=== PATIENT | female | born 1930 | race Caucasian/White ===

== ENCOUNTER 2018-05-11 11:41 | Inpatient (IN) | payer MEDICARE, MEDICAID ==
[~2018-05-11] VITALS: Ht 149.9 cm; Wt 53.0 kg
[~2018-05-11 11:41] MED LIST: AMLO10TAB OR; ASPI1TAB PO; CALC0.5C OR; CELL250C PO; COLA100C5 PO; DIPH2.5L PO; ECOT81TA5 PO; FLON1SPR; FLUTISP; GLYC3350 PO; HYDR25TA7 OR; KEFL500C17 PO; LABE100T2 OR; LACT3000 PO; LACTAID PO; LIDO5DIS EX; LIPI10TA OR; LISI10TA4 PO; LOMO2.5T PO; MEGE20TA3 PO; MEPRON PO; MIDO2.5T PO; MIRA3350 PO; MIRC30SO IVP; ONDA4TAB6 PO; OXYC1TAB23 PO; PAIN325T OR; PERC5TAB12 PO; PERC5TAB8 OR; POTA10CA2 OR; PRED10TA2 OR; PRED20TA OR; PRED20TA PO; PRED50TA OR; PROM50TA OR; PROM50TA PO; RANI150T PO; RANI1TAB6 PO; RENV2TAB PO; SEVE40CA PO; STOO100C PO; VICO5TAB OR; VITA-112 PO; VITA-115 PO; ZANT150T OR; ZOFR4TAB14 PO; [UNRECOGNIZED DRUG - CODE] IV; cytoxan PO
[2018-05-11] MEDS ORDERED: VITA-122 PO (12:09)
[2018-05-11] MEDS ORDERED: ASPI81TA24 PO (12:09)
[2018-05-11] MEDS ORDERED: MEGE20TA3 PO (12:09)
[2018-05-11] MEDS ORDERED: PRED10TA2 PO (12:09)
[2018-05-11 13:36] LABS: HEMATOCRIT 37.1 % (36.0-47.0); HEMOGLOBIN 11.2 g/dl (12.0-15.5); MEAN CORPUSCULAR HEMOGLOBIN 30.8 pg (27.0-33.0); MEAN CORPUSCULAR HGB CONC 30.2 g/dl (32.0-36.5); MEAN CORPUSCULAR VOLUME 101.9 fl (80.0-96.0); PLATELET COUNT, AUTOMATED 172 10^3/uL (150-450); RED BLOOD COUNT 3.64 10^6/uL (4.00-5.40); WHITE BLOOD COUNT 8.8 10^3/uL (4.0-10.0)
[2018-05-11 14:07] LABS: BILIRUBIN,TOTAL 0.5 MG/DL (0.2-1.0); CALCIUM LEVEL 8.3 MG/DL (8.8-10.2); CREATININE FOR GFR 4.43 MG/DL (0.55-1.30); MAGNESIUM LEVEL 2.3 MG/DL (1.8-2.4); PHOSPHORUS LEVEL 5.9 MG/DL (2.5-4.9); POTASSIUM SERUM 4.5 MEQ/L (3.5-5.1); TOTAL PROTEIN 6.5 GM/DL (6.4-8.2)
[2018-05-11] MEDS ORDERED: PERCOCET 5MG/325MG TAB PO ONE (14:30)
--- NOTE | 2018-05-11 15:55 | REP ---
BILATERAL LOWER EXTREMITY DOPPLER VENOUS ULTRASOUND: 05/11/2018. Comparison: 09/10/2017. Clinical history: Bilateral lower extremity pain. Evaluate for DVT. Patient notes there was some the patient to this examination because of patient motion. RIGHT LOWER EXTREMITY: Technique: The deep venous system of the right lower extremity is evaluated with pickard scale imaging, compression ultrasound, color imaging and duplex Doppler interrogation. Examination from the groin through the popliteal fossa into the proximal calf. Findings: There is full compressibility from the common femoral vein in the inguinal region through the popliteal vein. Color imaging confirms patency throughout the course of the deep venous system. There is respiratory variation and augmented flow at all levels. Impression: 1. No Doppler venous ultrasound evidence of DVT in the right lower extremity. LEFT LOWER EXTREMITY: Technique: The deep venous system of the right lower extremity is evaluated with pickard scale imaging, compression ultrasound, color imaging and duplex Doppler interrogation. Examination from the groin through the popliteal fossa into the proximal calf. Findings: The common femoral vein just before the bifurcation with the profunda shows a nonocclusive clot peripherally. There is respiratory variation and augmented flow evident. The remainder of the femoral vein and popliteal vein are well seen and show color flow, full compression, duplex Doppler interrogation with respiratory variation and augmented flow. Impression: 1. The left lower extremity at the common femoral vein shows nonocclusive thrombus just before the takeoff of the profunda femoris. There is color flow through this area with respiratory variation and augmented flow. This may be acute or old thrombus, it is peripheral. 2. Remainder of the common femoral vein through the thigh and the popliteal vein are without evidence for DVT. Electronically Signed by Robb Parsons MD 05/11/2018 03:45 P
[2018-05-11 16:19] LABS: INR 0.92; PROTHROMBIN TIME 12.4 SECONDS (12.1-14.4)
[2018-05-11 16:20] LABS: PARTIAL THROMBOPLASTIN TIME 28.6 SECONDS (25.4-37.6)
[2018-05-11] MEDS ORDERED: MIDO2.5T PO (16:37)
[2018-05-11] MEDS ORDERED: MYCO250C PO (16:37)
[2018-05-11] MEDS ORDERED: SEVE800T3 PO (16:41)
[2018-05-11] MEDS ORDERED: DIPH2.5T14 PO (16:45)
[2018-05-11] MEDS ORDERED: FLUTICASONE PROP 0.05% NASAL SPRAY 16 GM (FLONASE) PRN (19:30)
[2018-05-11] MEDS ORDERED: APIXABAN 5 MG TAB (ELIQUIS) PO ONE (20:00)
--- NOTE | 2018-05-11 20:32 | HPE ---
DATE OF ADMISSION: 05/11/2018 CHIEF COMPLAINT: Bilateral leg pain. HISTORY OF PRESENT ILLNESS: This is an 88-year-old female with a past medical history of end-stage renal disease, on dialysis since 2010 via right arteriovenous (AV) fistula, history of spinal stenosis, and low blood pressure who presents after dialysis with significant leg pain. The patient normally receives Tuesday, Tuesday, Tuesday dialysis and has been getting extra hemodialysis on Saturdays for ankle swelling, and reports after her most recent dialysis, she started having bilateral hip pain radiating down to her knees that was severe to 9 out of 10 pain, which is particularly worse with movement. Right now she is not having any pain at rest; however, cannot ambulate secondary to the significant pain. She does not have any recent history of immobility or prior history of deep vein thrombosis (DVT). REVIEW OF SYSTEMS: Negative in 14 out of 14 systems except as noted above. PAST MEDICAL HISTORY: As noted above in history of the present illness. PAST SURGICAL HISTORY: The patient has had a history of hip replacement, a hysterectomy, left leg abscess surgery, and right AV fistula. MEDICATIONS: The patient's home medications are: - Percocet half a tablet by mouth four times a day as needed for pain - lactase 3000 units one tablet by mouth three times a day as needed lactose intolerance - Megace 10 mg by mouth daily - aspirin 81 mg daily - vitamin D 1000 units daily - Flonase 50 mcg one spray daily as needed for congestion - midodrine 2.5 mg by mouth three times a day - Cellcept 250 mg by mouth twice a day - Zofran 4 mg by mouth every 8 hours as needed for nausea - prednisone 10 mg daily - sevelamer 800 mg by mouth three times a day ALLERGIES: The patient is allergic to CEFUROXIME, CEPHALOSPORINS, CODEINE, FENOFIBRATE, MORPHINE, MOXIFLOXACIN, SULFA DRUGS. FAMILY HISTORY: The patient's father had heart disease. SOCIAL HISTORY: The patient currently lives alone in senior housing and was able to walk prior to returning home. The patient does have a local niece who helps her sometimes, but she is currently in [place]. She has never been and has no children. No smoking or alcohol use. PHYSICAL EXAMINATION: On exam currently, the patient's most recent vital signs show patient is afebrile to 98.7, blood pressure 175/72, heart rate currently at 100, saturating 97% on room air. In general, she is a pleasant elderly female in no acute distress. HEENT Exam: Oropharynx clear. Neck: Supple. Cardiovascular: Regular rate and rhythm. No murmurs, rubs, or gallops. Lungs: Clear to auscultation bilaterally. Abdomen: Soft, nontender, nondistended. Positive bowel sounds. Extremities: The patient has bilateral ankle edema. She has a right AV fistula. Neurologic: The patient is alert and oriented times three, follows simple commands. No focal neurologic deficits. Musculoskeletal: Moves all extremities equally. Skin: Intact. Psych: Mood stable. Labs reveal CBC with a white count of 8.8, hemoglobin of 11, platelets of 172. Chemistry revealed a creatinine of 4.43, potassium of 4.5. Imaging reveals Doppler ultrasound that shows common femoral vein just before the bifurcation with the profunda shows a nonocclusive clot peripherally. There is respiratory variation and augmented flow evident. The remainder of the femoral vein and popliteal vein are well seen and show color flow. ASSESSMENT AND PLAN: This is an 88-year-old female with past medical history of end-stage renal disease, on dialysis, history of spinal stenosis, low blood pressure, who presents with bilateral leg pain, found to have a nonocclusive left leg deep vein thrombosis (DVT). PROBLEMS: 1. Left leg DVT. I am starting the patient on Eliquis, which per up to date does not need any dose adjustments per woolen tester label, but this population was not used in studies. For now, I have started this medication and will defer to the primary team with [facility] that will take over tomorrow to make final decision about patient's long-term anticoagulation and whether they prefer the patient to be on Coumadin instead. This can be finalized tomorrow in discussion with the primary team tomorrow. I have also put in for a physical therapy (PT) consult as pain control and impaired gait is a barrier to discharge at this time. I have started her on oxycodone 1-2 tablets as needed for pain, as well as physical therapy to assist with discharge planning. I have also placed a social work consult. 2. Low blood pressure. The patient reportedly has a history of low blood pressure, but at this time her pressures are in the 170s. I am continuing her home midodrine, but perhaps this dose can be reduced if the patient remains persistently hypertensive. 3. End-stage renal disease. The patient is on hemodialysis Tuesday, Tuesday, Tuesday and primary team to arrange for patient to have dialysis tomorrow per her usual schedule. 4. The patient is on CellCept and prednisone, but it is unclear why she is on these medications and I will continue them for now. 5. DVT prophylaxis. The patient is on Eliquis. The patient will be transferred to the family medicine service tomorrow as patient's primary care doctor is Dr. Dick. LISA
[2018-05-11 21:14] VITALS: BP 149/66
[2018-05-11] MEDS: PERCOCET 5MG/325MG TAB PO PRN (22:10)
[2018-05-12] VITALS: BP 159/70
[2018-05-12] MEDS: MYCOPHENOLATE MOFETIL 250 MG CAP (J7517) PO SCH ×3 (00:06→20:14)
[2018-05-12] MEDS: ONDANSETRON 4 MG ORAL DISINTEGRATING TAB (Q0162 PER 1MG) PO PRN ×3 (00:07→22:57)
[2018-05-12 04:00] VITALS: BP_SYST 137; BP_SYST 149; BP_DIAS 65; BP_DIAS 66
[2018-05-12 07:26] LABS: MEAN CORPUSCULAR HEMOGLOBIN 30.3 pg (27.0-33.0); MEAN CORPUSCULAR HGB CONC 30.3 g/dl (32.0-36.5); PLATELET COUNT, AUTOMATED 194 10^3/uL (150-450); WHITE BLOOD COUNT 6.8 10^3/uL (4.0-10.0)
[2018-05-12 07:42] LABS: CREATININE FOR GFR 5.62 MG/DL (0.55-1.30); GLOMERULAR FILTRATION RATE 7.6 (>32); POTASSIUM SERUM 4.3 MEQ/L (3.5-5.1)
[2018-05-12] MEDS ORDERED: MIDODRINE 2.5 MG TAB PO SCH (08:00)
[2018-05-12] MEDS: MIDODRINE 2.5 MG TAB PO SCH ×3 (08:34→16:00)
[2018-05-12] MEDS: VITAMIN D 1,000 INTERNATIONAL UNITS TABLET PO SCH (08:34)
[2018-05-12] MEDS: predniSONE 10 MG TAB PO SCH (08:34)
[2018-05-12] MEDS: (RENVELA) SEVELAMER **CARBONate** 800 MG TAB PO SCH ×3 (08:34→19:47)
[2018-05-12] MEDS: ASPIRIN 81 MG ENTERIC TAB PO SCH (08:35)
[2018-05-12] MEDS ORDERED: APIXABAN 5 MG TAB (ELIQUIS) PO SCH (09:00)
[2018-05-12 13:39] VITALS: BP 164/72
--- NOTE | 2018-05-12 15:25 | CR ---
DATE OF CONSULTATION: 05/12/2018 CONSULTATION REPORT FOR: Dr. Currie REASON FOR CONSULTATION: To assist in the management of end-stage renal disease. HISTORY OF PRESENT ILLNESS: Mrs. Perez is an 88-year-old female with multiple chronic medical problems including history of end-stage renal disease, congestive heart failure, chronic hypotension requiring midodrine, history of anemia of chronic kidney disease. She is admitted to [facility] due to lower extremity pain and swelling. She is noticed to have deep vein thrombosis (DVT) in her right lower extremity and was admitted last evening. A nephrology consultation is requested and the patient is seen this morning. PAST MEDICAL AND SURGICAL HISTORY: Significant for: 1. History of end-stage renal disease. 2. History of peripheral vascular disease. 3. History of spinal stenosis. 4. History of chronic hypotension. 5. Anemia of chronic kidney disease. 6. History of rheumatoid arthritis. PAST SURGICAL HISTORY: Significant for a hysterectomy, left leg abscess drainage and right arm arteriovenous (AV) fistula creation in addition to Perma-Cath. PERSONAL AND SOCIAL HISTORY: The patient has no history of smoking, alcohol or drug use. FAMILY HISTORY: Negative for end-stage renal disease. MEDICATIONS: Her home medications include: - Percocet as needed for pain - lactase 3000 units one tablet three times a day for lactose intolerance - Megace 10 mg daily - aspirin 81 mg daily - vitamin D 1000 units daily - midodrine 2.5 mg three times a day - CellCept 250 mg twice a day - Zofran 4 mg every eight hours as needed nausea - prednisone 10 mg daily - Renvela 800 mg three times a day ALLERGIES: She has allergy to CEPHALOSPORINS, CODEINE, FENOFIBBRATE, MORPHINE, and SULFA DRUGS. REVIEW OF SYSTEMS: The patient denies any fever or chills. She reports pain in her lower extremities since Tuesday and could not stand up. She also has chronic swelling and has required extra hemodialysis for her chronic volume overload. She denies any dyspnea or chest pain at present on review of cardiovascular system. Her respiratory system is negative for cough or hemoptysis. Gastrointestinal (GI) system is negative for nausea, vomiting or diarrhea. Genitourinary () system is negative for dysuria or hematuria. Musculoskeletal system is significant for bilateral lower extremity pain and swelling. She has known history of spinal stenosis. Skin is negative for rash or ulcers. Neurological system is significant for neuropathy and spinal stenosis. Psychosocial system is negative for depression or anxiety. Hematological system is significant for anemia of chronic kidney disease. PHYSICAL EXAMINATION: The patient is awake and alert and without any acute distress. Temperature 98.3 degrees Fahrenheit, heart rate 74 per minute and respiratory rate 18 per minute. Blood pressure 137/65 mmHg and oxygen saturation 96% on room air. Head is atraumatic. There is no oral thrush or ulcers. She is edentulous. Neck is supple and jugular venous distention (JVD) is not abnormally elevated. There is no thyroid enlargement. Heart sounds are regular and there is a systolic murmur grade 2/6. Lungs have slightly diminished breath sounds at bases but no wheezing or rales audible. Abdomen is soft and nontender. Bowel sounds are normal. Extremities have no cyanosis or clubbing. She has a right arm arteriovenous (AV) fistula. Her right lower extremity is swollen about 2+ and left lower extremity 1+. She has some ecchymotic areas on her lower extremities. Neurologically, she is awake, alert and oriented times three. LABORATORY DATA: Today's laboratories show WBC count 6.8, hemoglobin 10.0, and hematocrit 33.0. Platelets 194. INR is 0.92 and initial PTT was 28.6. Sodium is 134, potassium 4.3, CO2 25, BUN 61 and creatinine 5.62. Calcium level is 8.0. PROBLEMS: 1. End-stage renal disease. The patient was last dialyzed on Tuesday and she is due for dialysis today. We will plan on dialyzing her later this afternoon. 2. Chronic leg edema. Unfortunately, we cannot remove fluid more aggressively due to chronic hypotension. She has been getting extra ultrafiltration sessions in between her dialysis treatments. We will plan to dialyze her today and see how much fluid we can remove. We will reevaluate her tomorrow for an extra ultrafiltration if needed. 3. Chronic hypotension. She has been on midodrine 2.5 mg three times a day which should be continued. 4. Deep vein thrombosis (DVT) and anticoagulation. She has been started on Eliquis 10 mg twice a day. She has end-stage renal disease and I would suggest to adjust the dose of Eliquis for her end-stage renal disease (ESRD). 5. Chronic hyperparathyroidism. She has been on Renvela which should be continued. Her phosphorus level was 5.9 yesterday. Thank you for involving me in the care of Mrs. Perez. I will follow her along with you.
[2018-05-12 20:00] VITALS: BP 107/54
[2018-05-12] MEDS: APIXABAN 2.5 MG TAB (ELIQUIS) PO SCH (20:14)
[2018-05-12] MEDS: PERCOCET 5MG/325MG TAB PO PRN (20:14)
[2018-05-13] VITALS: BP 128/60
--- NOTE | 2018-05-13 02:43 | IPNPDOC ---
Subjective Date Seen The patient was seen on 05/13/18. Subjective Chief Complaint/HPI Seen briefly before dialysis. She notes that her leg only hurts when she tries to stand on it, painless at rest. She can't stand on it, because it hurts. Otherwise feeling fine. Constitutional: Denies: Chills, Fever Pulmonary: Denies: Dyspnea Cardiovascular: Denies: Chest Pain Gastrointestinal: Denies: Nausea, Vomiting, Diarrhea, Constipation Musculoskeletal: Reports: Leg Pain Objective Physical Examination General Exam: Positive: Alert ENT Exam: Positive: Mucous membr. moist/pink Chest Exam: Positive: Clear to auscultation, Normal air movement Heart Exam: Positive: Rate Normal Abdomen Exam: Positive: Normal bowel sounds Extremity Exam: Positive: Tenderness, Swelling Assessment /Plan Problems (1) Non-occlusive thrombus Problem Text: Anticoagulated. Patient can be discharged home when she can ambulate. PT contacted. (2) End stage renal disease on dialysis Status: Chronic Problem Text: Nephrology consulted Plan/VTE VTE Prophylaxis Ordered?: Yes VS, I&O, 24H, Fishbone Vital Signs/I&O Vital Signs Date Time Temp Pulse Resp B/P (MAP) Pulse Ox O2 Delivery O2 Flow Rate FiO2 05/13/18 00:00 99.1 77 18 128/60 (82) 94 05/11/18 11:54 Room Air I&O- Last 24 Hours up to 6 AM 05/13/18 06:00 Intake Total 540 ml Output Total 2100 ml Balance -1560 ml Laboratory Data 24H LABS Laboratory Tests 2 05/12/18 07:06: Nucleated Red Blood Cells % (auto) 0.0, Anion Gap 15, Glomerular Filtration Rate 7.6L, Blood Urea Nitrogen 61H, Creatinine 5.62H, Sodium Level 134L, Potassium Level 4.3, Chloride Level 94L, Carbon Dioxide Level 25, Calcium Level 8.0L CBC/BMP Laboratory Tests 05/12/18 07:06 Red Blood Count 3.30 L, Mean Corpuscular Volume 100.0 H, Mean Corpuscular Hemoglobin 30.3, Mean Corpuscular Hemoglobin Concent 30.3 L, Red Cell Distribution Width 15.7 H, Calcium Level 8.0 L IBRAHIMA HERNANDEZ DO May 13, 2018 02:43
[2018-05-13 04:08] VITALS: BP 180/76
[2018-05-13 04:50] VITALS: BP 138/70
[2018-05-13] MEDS: PERCOCET 5MG/325MG TAB PO PRN ×2 (06:55→20:18)
[2018-05-13] MEDS: MIDODRINE 2.5 MG TAB PO SCH ×3 (08:00→17:27)
[2018-05-13] MEDS: MYCOPHENOLATE MOFETIL 250 MG CAP (J7517) PO SCH ×2 (08:40→20:18)
[2018-05-13] MEDS: predniSONE 10 MG TAB PO SCH (08:40)
[2018-05-13] MEDS: VITAMIN D 1,000 INTERNATIONAL UNITS TABLET PO SCH (08:40)
[2018-05-13] MEDS: APIXABAN 2.5 MG TAB (ELIQUIS) PO SCH ×2 (08:40→20:18)
[2018-05-13] MEDS: (RENVELA) SEVELAMER **CARBONate** 800 MG TAB PO SCH ×3 (08:40→17:22)
[2018-05-13] MEDS: ASPIRIN 81 MG ENTERIC TAB PO SCH (08:40)
[2018-05-13 12:00] VITALS: BP 167/77
--- NOTE | 2018-05-13 15:50 | IPNPDOC ---
Subjective Date Seen The patient was seen on 05/13/18. Subjective Chief Complaint/HPI leg pain is better. has skin tear right forearm from tape removal Constitutional: Denies: Chills ENT: Denies: Head Aches Skin: Reports: Bruising (ecchymoses multiple areas.) Pulmonary: Denies: Dyspnea, Cough Cardiovascular: Denies: Chest Pain, Palpitations Gastrointestinal: Denies: Nausea, Vomiting Neurological: Denies: Numbness, Change in speech Psych: Reports: Mood Normal Objective Physical Examination General Exam: Positive: Alert ENT Exam: Positive: Mucous membr. moist/pink Chest Exam: Positive: Clear to auscultation, Normal air movement Heart Exam: Positive: Rate Normal Abdomen Exam: Positive: Normal bowel sounds Extremity Exam: Positive: Tenderness, Swelling Skin Exam: Positive: Other skin issue (skin tear right forearm, volar aspect. has gauze under Tegaderm on site. No oozing or bleeding or surrounding redness or palpable induration.) Assessment /Plan Problems (1) Non-occlusive thrombus Status: Acute Response to Treatment: Improving Problem Text: Anticoagulated. Patient can be discharged home when she can ambulate. PT contacted. (2) End stage renal disease on dialysis Status: Chronic Problem Specific Plan: Consult Specialist Problem Text: Nephrology consulted. Continuing dialysis Plan/VTE VTE Prophylaxis Ordered?: Yes Plan Therapy: PT Anticipated Discharge: Home VS, I&O, 24H, Fishbone Vital Signs/I&O Vital Signs Date Time Temp Pulse Resp B/P (MAP) Pulse Ox O2 Delivery O2 Flow Rate FiO2 05/13/18 12:00 97.8 88 16 167/77 (107) 95 05/11/18 11:54 Room Air I&O- Last 24 Hours up to 6 AM 05/13/18 06:00 Intake Total 540 ml Output Total 2100 ml Balance -1560 ml Vriaj Quevedo MD May 13, 2018 15:50
[2018-05-13 17:00] VITALS: BP 127/60
--- NOTE | 2018-05-13 18:21 | IPN ---
DATE: 05/13/2017 Mrs. Perez is seen this morning on her bedside. She is sitting in the chair at the time of my visit and feeling much better. She was dialyzed yesterday, and fluid was removed. In addition, she has been on anticoagulation for deep vein thrombosis (DVT). Yesterday, about 2 liters fluid was removed, which she tolerated well, and her lower extremity edema has improved. She denies any nausea, vomiting, dyspnea, or chest pain. PHYSICAL EXAMINATION: Today her temperature is 97.8 degrees Fahrenheit, heart rate 88 per minute, respiratory rate 18 per minute, blood pressure 138/70 mm of mercury, and oxygen saturation 95% on room air. Head is atraumatic. Neck is supple, and there is no jugular venous distention (JVD) or thyroid enlargement. Her heart sounds are regular in rhythm. Lungs with few basilar crepitations. Abdomen soft and nontender and without a palpable organomegaly. Bowel sounds are normal. Extremities have no cyanosis or clubbing. Her right foot is still quite swollen, and legs have no edema anymore. Neurologically, she is awake, alert, and oriented times three. She did not have any new labs done today. PROBLEMS: 1. End-stage renal disease. The patient was dialyzed yesterday, and she tolerated dialysis treatment very well. She does not need an extra dialysis or ultrafiltration today. 2. Chronic hypervolemia and lower extremity edema. Volume status has improved significantly, and her edema is now localized on the right foot. I have advised the nursing staff to wrap her foot with Madi wrap. She should elevate her foot while she is lying in the bed. 3. Deep vein thrombosis (DVT). The patient has been started on Eliquis by her primary team. Dose was adjusted per my recommendation. I feel that at this point she is okay to continue with Eliquis 2.5 mg twice a day. 4. Anemia. Her anemia has been stable and does not need any intervention. Her complete blood count (CBC) should be checked again next week.
[2018-05-13 20:00] VITALS: BP 153/71
[2018-05-13] MEDS: ONDANSETRON 4 MG ORAL DISINTEGRATING TAB (Q0162 PER 1MG) PO PRN (20:18)
[2018-05-14] VITALS: BP 131/65
[2018-05-14 04:00] VITALS: BP 122/80
[2018-05-14 08:00] VITALS: BP 102/50
[2018-05-14] MEDS: MIDODRINE 2.5 MG TAB PO SCH ×3 (08:17→16:00)
[2018-05-14] MEDS: APIXABAN 2.5 MG TAB (ELIQUIS) PO SCH ×2 (08:17→21:30)
[2018-05-14] MEDS: (RENVELA) SEVELAMER **CARBONate** 800 MG TAB PO SCH ×3 (08:17→17:47)
[2018-05-14] MEDS: ASPIRIN 81 MG ENTERIC TAB PO SCH (08:18)
[2018-05-14] MEDS: VITAMIN D 1,000 INTERNATIONAL UNITS TABLET PO SCH (08:18)
[2018-05-14] MEDS: MYCOPHENOLATE MOFETIL 250 MG CAP (J7517) PO SCH ×2 (08:18→21:30)
[2018-05-14] MEDS: PERCOCET 5MG/325MG TAB PO PRN ×3 (08:18→21:31)
[2018-05-14] MEDS: predniSONE 10 MG TAB PO SCH (08:18)
[2018-05-14 12:00] VITALS: BP 140/60
--- NOTE | 2018-05-14 14:43 | IPNPDOC ---
Subjective Date Seen The patient was seen on 05/14/18. Subjective Chief Complaint/HPI leg pains are better. Constitutional: Denies: Chills, Malaise ENT: Denies: Head Aches Pulmonary: Denies: Dyspnea, Cough Cardiovascular: Denies: Chest Pain Gastrointestinal: Denies: Nausea, Abdominal Pain Musculoskeletal: Reports: Leg Pain (burning pain that radiates into heel. ) Objective Physical Examination General Exam: Positive: Alert ENT Exam: Positive: Mucous membr. moist/pink Chest Exam: Positive: Clear to auscultation, Normal air movement Heart Exam: Positive: Rate Normal Abdomen Exam: Positive: Normal bowel sounds Extremity Exam: Positive: Tenderness, Swelling Skin Exam: Positive: Other skin issue (skin tear right forearm, volar aspect. has gauze under Tegaderm on site. No oozing or bleeding or surrounding redness or palpable induration.) Assessment /Plan Problems (1) Non-occlusive thrombus Status: Acute Response to Treatment: Improving Problem Text: Anticoagulated. Patient can be discharged home when she can ambulate. PT contacted. (2) End stage renal disease on dialysis Status: Chronic Problem Specific Plan: Consult Specialist Problem Text: Nephrology consulted. Continuing dialysis (3) Spinal stenosis Status: Chronic Response to Treatment: Improving Problem Text: suspect that the spinal stenosis is the source of her leg pains that led to discovery of the DVT. her discomfort is improving. (4) Skin tear of right forearm without complication Status: Acute Response to Treatment: Stable Problem Text: wound occurred as tape was removed from right volar forearm. dressing is in place not oozing from the dressing. gauze is in place with overlay of Opsite. Anticipate that as the gauze is lifted when the dressing is changed that bleeding will again be a problem. Plan/VTE VTE Prophylaxis Ordered?: Yes Plan Therapy: PT Anticipated Discharge: Home VS, I&O, 24H, Fishbone Vital Signs/I&O Vital Signs Date Time Temp Pulse Resp B/P (MAP) Pulse Ox O2 Delivery O2 Flow Rate FiO2 05/14/18 14:25 18 05/14/18 12:00 98.7 91 140/60 (86) 95 05/11/18 11:54 Room Air I&O- Last 24 Hours up to 6 AM 05/14/18 06:00 Intake Total 1170 ml Balance 1170 ml Viraj Quevedo MD May 14, 2018 14:43
[2018-05-14 16:00] VITALS: BP 140/64
[2018-05-14 22:00] VITALS: BP 152/80
[2018-05-15 02:00] VITALS: BP 158/60
[2018-05-15 06:00] VITALS: BP 158/72
[2018-05-15 06:21] LABS: HEMATOCRIT 33.4 % (36.0-47.0); HEMOGLOBIN 10.2 g/dl (12.0-15.5); MEAN CORPUSCULAR HEMOGLOBIN 30.8 pg (27.0-33.0); MEAN CORPUSCULAR HGB CONC 30.5 g/dl (32.0-36.5); MEAN CORPUSCULAR VOLUME 100.9 fl (80.0-96.0); PLATELET COUNT, AUTOMATED 202 10^3/uL (150-450); RED BLOOD COUNT 3.31 10^6/uL (4.00-5.40)
--- NOTE | 2018-05-15 06:22 | IPN ---
DATE OF VISIT: 05/04/2018 HISTORY OF PRESENT ILLNESS: Mrs. Perez is seen this morning on her bedside. She is feeling much better and denies any dyspnea, chest pain, nausea, vomiting, fever or chills. Her lower extremity swelling has improved significantly. She still feels weak and has difficulty walking. She wants to get physical therapy before she can be discharged. PHYSICAL EXAMINATION: VITAL SIGNS: Temperature 98.7 degrees Fahrenheit, heart rate 90 per minute and respiratory rate 18 per minute. Blood pressure 140/60 mmHg and oxygen saturation 95% on room air. HEENT: Head is atraumatic. NECK: Neck is supple and without jugular venous distention (JVD) or thyroid enlargement. LUNGS: Lungs have scattered coarse crackles. HEART: Sounds are irregular in rhythm and a systolic murmur grade 1/6 is audible. ABDOMEN: Soft and nontender. Bowel sounds are present. EXTREMITIES: Extremities have no cyanosis or clubbing. The right arm arteriovenous (AV) fistula is patent. 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 Right foot is wrapped in Madi wrap and swelling has improved. NEUROLOGIC: She is awake, alert and oriented times three. LABORATORY DATA: The patient did not have any new labs done today. PROBLEMS: 1. End-stage renal disease. The patient is regularly dialyzed on Tuesday, Tuesday and Tuesday schedule. She was last dialyzed on Tuesday and we will plan to dialyze her again tomorrow. There is no emergent indication for dialysis today. 2. Congestive heart failure and peripheral edema. Volume status is reasonably well-compensated with mild unilateral edema on her right foot. We had anticipated further improvement with dialysis and fluid removal. I feel that at home she does not follow her fluid restriction very well but in the hospital she is doing good and her edema has gone quickly. 3. Deep venous thrombosis (DVT). She has been on Eliquis 2.5 mg twice a day. Her symptoms have improved. 4. Anemia. She does have anemia of chronic kidney disease and her CBC and renal profile is being ordered for tomorrow. 5. Hyperphosphatemia. The patient is tolerating her Renvela 800 mg with meals very well. Renal profile will be checked tomorrow morning.
[2018-05-15 06:33] LABS: ALBUMIN 3.1 GM/DL (3.2-5.2); CALCIUM LEVEL 7.9 MG/DL (8.8-10.2); CREATININE FOR GFR 6.56 MG/DL (0.55-1.30); GLOMERULAR FILTRATION RATE 6.4 (>32); PHOSPHORUS LEVEL 5.9 MG/DL (2.5-4.9); POTASSIUM SERUM 5.1 MEQ/L (3.5-5.1)
[2018-05-15] MEDS: (RENVELA) SEVELAMER **CARBONate** 800 MG TAB PO SCH ×3 (06:44→17:16)
[2018-05-15] MEDS: APIXABAN 2.5 MG TAB (ELIQUIS) PO SCH ×2 (06:44→20:21)
[2018-05-15] MEDS: MIDODRINE 2.5 MG TAB PO SCH ×3 (06:45→17:16)
[2018-05-15] MEDS: predniSONE 10 MG TAB PO SCH (06:45)
[2018-05-15] MEDS: VITAMIN D 1,000 INTERNATIONAL UNITS TABLET PO SCH (06:45)
[2018-05-15] MEDS: ASPIRIN 81 MG ENTERIC TAB PO SCH (06:45)
[2018-05-15] MEDS: MYCOPHENOLATE MOFETIL 250 MG CAP (J7517) PO SCH ×2 (06:45→20:21)
--- NOTE | 2018-05-15 09:43 | IPNPDOC ---
Subjective Date Seen The patient was seen on 05/15/18. Subjective Chief Complaint/HPI DVT Events since last encounter Denies c/o. Planned HD today. Admits to feeling weak in BLE. Pulmonary: Denies: Dyspnea, Cough Cardiovascular: Denies: Chest Pain, Palpitations, Orthopnea, Paroxysmal Noc. Dyspnea, Lt Headedness Gastrointestinal: Denies: Nausea, Vomiting, Abdominal Pain, Diarrhea, Constipation Objective Physical Examination General Exam: Positive: Alert ENT Exam: Positive: Mucous membr. moist/pink Chest Exam: Positive: Clear to auscultation, Normal air movement Heart Exam: Positive: Rate Normal Abdomen Exam: Positive: Normal bowel sounds Extremity Exam: Positive: Tenderness, Swelling Skin Exam: Positive: Other skin issue (skin tear right forearm, volar aspect. has gauze under Tegaderm on site. No oozing or bleeding or surrounding redness or palpable induration.) Assessment /Plan Problems (1) Non-occlusive thrombus Status: Acute Response to Treatment: Improving Problem Text: 05/15/18: PT not safe for dc home-favor STR; therefore, plan SNF in AM (SS already consulted for placement) (2) End stage renal disease on dialysis Status: Chronic Problem Specific Plan: Consult Specialist Problem Text: Nephrology consulted. Continuing dialysis (3) Spinal stenosis Status: Chronic Response to Treatment: Improving Problem Text: suspect that the spinal stenosis is the source of her leg pains that led to discovery of the DVT. her discomfort is improving. (4) Skin tear of right forearm without complication Status: Acute Response to Treatment: Stable Problem Text: wound occurred as tape was removed from right volar forearm. dressing is in place not oozing from the dressing. gauze is in place with overlay of Opsite. Anticipate that as the gauze is lifted when the dressing is changed that bleeding will again be a problem. Plan/VTE VTE Prophylaxis Ordered?: Yes Plan Therapy: PT Anticipated Discharge: Home VS, I&O, 24H, Fishbone Vital Signs/I&O Vital Signs Date Time Temp Pulse Resp B/P (MAP) Pulse Ox O2 Delivery O2 Flow Rate FiO2 05/15/18 06:00 98.9 76 16 158/72 (100) 95 05/11/18 11:54 Room Air I&O- Last 24 Hours up to 6 AM 05/15/18 06:00 Intake Total 1300 ml Balance 1300 ml Laboratory Data 24H LABS Laboratory Tests 2 05/15/18 05:57: Nucleated Red Blood Cells % (auto) 0.0, Blood Urea Nitrogen 59H, Creatinine 6.56H, Sodium Level 129L, Potassium Level 5.1, Chloride Level 96L, Carbon Dioxide Level 21, Anion Gap 12, Glomerular Filtration Rate 6.4L, Calcium Level 7.9L, Phosphorus Level 5.9H, Albumin 3.1L CBC/BMP Laboratory Tests 05/15/18 05:57 Red Blood Count 3.31 L, Mean Corpuscular Volume 100.9 H, Mean Corpuscular Hemoglobin 30.8, Mean Corpuscular Hemoglobin Concent 30.5 L, Red Cell Distribution Width 15.5 H, Anion Gap 12 Ivonne Dunn May 15, 2018 09:43 Jared Luque M.D. May 15, 2018 15:34
[2018-05-15] MEDS ORDERED: HEPARIN 1,000 UNITS/ML 10ML VIAL (FOR RADIOLOGY& DIALYSIS ONLY) IV ONE (11:00)
[2018-05-15] MEDS: PERCOCET 5MG/325MG TAB PO PRN ×2 (15:40→21:56)
[2018-05-15 20:00] VITALS: BP 122/68
[2018-05-15] MEDS: ONDANSETRON 4 MG ORAL DISINTEGRATING TAB (Q0162 PER 1MG) PO PRN (21:56)
[2018-05-16 06:00] VITALS: BP 126/62
--- NOTE | 2018-05-16 06:14 | IPN ---
DATE OF SERVICE: 05/15/2018 SUBJECTIVE: The patient was seen and examined at the bedside today morning. She is afebrile and hemodynamically stable. Today is her regular day of dialysis. She reports that she is getting strength. She is getting more physical therapy and she is able to walk with the help of a walker now. She is complaining of a small ulcer at the right forearm. Otherwise there is no active complaints at this point. OBJECTIVE: Vital Signs: Temperature 98.9 degrees Fahrenheit, blood pressure 158/72, pulse 76, respiratory rate 16, saturating 95% on room air. Intake and Output: Urine output recorded as 50 mL. Weight on the bed scale is not available. PHYSICAL EXAMINATION: General: Patient is awake, alert and oriented times three, sitting up on the sofa in no apparent distress. Head and Neck Exam: Extraocular muscles intact. Pupils equally round and reactive to light. Mucous membranes are moist. Neck is supple. There is no jugular venous distention (JVD). Cardiovascular: S1, S2. 1+ edema of the bilateral ankles. Respiratory: Chest is clear to auscultation bilaterally. Bilateral equal air entry. No rales or rhonchi. Abdomen soft. Positive bowel sounds. Nontender. No ascites. No organomegaly. Musculoskeletal: No clubbing or cyanosis. 1+ edema of the lower extremities. She has a small dressing in the right forearm. Central Nervous System (VIBRATING SCREED OPERATOR): No focal deficit. Power is 5/5 in all extremities. AV Access: She has a right upper arm AV fistula with positive thrill and bruit. LAB REVIEW: CBC showed a WBC of 7, hemoglobin 10.2. BMP showed sodium 129, potassium 5.1, chloride 96, bicarbonate 21, BUN 59, creatinine 6.5, phosphorus 5.9, albumin 3.1. CURRENT INPATIENT MEDICATIONS: Patient's medications were all reviewed by me. There is no change in the medications today as compared with yesterday. ASSESSMENT AND PLAN: 1. End stage renal disease on hemodialysis. The patient's regular dialysis days are Tuesday, Tuesday, Tuesday. She will be dialyzed today according to her regular schedule. Ultrafiltration goal will be 2 liters as tolerated by her blood pressure. 2. Chronic diastolic congestive heart failure and lower extremity edema. Volume status is being optimized with hemodialysis. She was requiring extra sessions of ultrafiltration as outpatient. Lower extremity edema is improving now. 3. Chronic kidney disease mineral bone disease. The patient does not tolerate higher doses of Renvela. Continue current dose of Renvela 800 mg by mouth with meals. 4. Anemia and end stage renal disease. Hemoglobin is 10.2, which is optimal. 5. Chronic hypotension. Continue current dose of midodrine 2.5 mg by mouth three times a day. 6. Deep vein thrombosis. Continue current dose of Eliquis 2.5 mg by mouth twice a day.
[2018-05-16] MEDS: MYCOPHENOLATE MOFETIL 250 MG CAP (J7517) PO SCH ×2 (07:56→21:25)
[2018-05-16] MEDS: APIXABAN 2.5 MG TAB (ELIQUIS) PO SCH ×2 (07:57→21:25)
[2018-05-16] MEDS: MIDODRINE 2.5 MG TAB PO SCH ×3 (07:57→15:05)
[2018-05-16] MEDS: ASPIRIN 81 MG ENTERIC TAB PO SCH (07:57)
[2018-05-16] MEDS: predniSONE 10 MG TAB PO SCH (07:57)
[2018-05-16] MEDS: VITAMIN D 1,000 INTERNATIONAL UNITS TABLET PO SCH (07:57)
[2018-05-16] MEDS: PERCOCET 5MG/325MG TAB PO PRN ×2 (07:57→15:02)
[2018-05-16] MEDS: (RENVELA) SEVELAMER **CARBONate** 800 MG TAB PO SCH ×3 (07:57→17:01)
--- NOTE | 2018-05-16 12:30 | DSES ---
DATE OF ADMISSION: 05/11/2018 DATE OF DISCHARGE: ATTENDING PHYSICIAN: Emery Currie MD PRIMARY CARE PROVIDER: Farshad Dick MD HISTORY OF PRESENT ILLNESS: This is a very pleasant 88-year-old female who presented to [facility] Emergency Department (ED) for complaints of significant leg pain post dialysis. The patient was found to have a left lower extremity deep venous thrombosis (DVT). The patient was placed on Eliquis and subsequently admitted secondary to poor mobility. HOSPITAL COURSE: The patient has had no changes in her medical status. She has remained on her dialysis days, and nephrology has continued to follow while the patient is admitted here. The patient is status post physical therapy evaluation. Has been deemed unsafe for discharge to home secondary to her physical debility. Subacute rehabilitation was recommended, and the patient is agreeable. On physical examination today, vital signs are stable. She is afebrile. HEENT: Neck is supple without lymphadenopathy or jugular venous distention (JVD). Cardiovascular: Heart rate and rhythm are regular. Pulmonary: Lungs are clear. ASSESSMENT/DISCHARGE DIAGNOSES: 1. Left lower extremity deep venous thrombosis. 2. End-stage renal disease. 3. Physical debility. SECONDARY DIAGNOSIS: Includes history of spinal stenosis. PLAN: Discharge medications and disposition will be dictated at time of discharge. The patient will be considered alternate level of care (ALC) status at this time.
[2018-05-16] MEDS: ONDANSETRON 4 MG ORAL DISINTEGRATING TAB (Q0162 PER 1MG) PO PRN (15:02)
[2018-05-16] MEDS ORDERED: DARBEPOETIN 100 MCG/0.5 ML *DIALYSIS* SYRINGE (J0882) IV SCH (19:30)
--- NOTE | 2018-05-16 22:08 | IPN ---
DATE: 05/16/2018 SUBJECTIVE: The patient was seen and examined at the bedside. The patient is afebrile, hemodynamically stable. She was dialyzed yesterday; two liters of fluid was removed. She tolerated the hemodialysis procedure well. She was getting ready to do the physical therapy when I saw her today, morning. OBJECTIVE: VITAL SIGNS: Temperature is 98.9 degrees Fahrenheit, blood pressure 126/62, pulse is 81, respiratory rate of 16, saturating 94% on room air. INTAKE/OUTPUT: Urine output is not recorded. Ultrafiltration with hemodialysis was two liters. Weight on the bed scale is not available. PHYSICAL EXAMINATION: GENERAL: The patient is awake, alert, oriented times three, sitting up in the bed, in no apparent distress. HEAD AND NECK EXAM: Extraocular muscles intact. Pupils equally round and reactive to light. Mucous membranes are moist. Neck is supple. There is no jugular venous distention (JVD). CARDIOVASCULAR: S1, S2. 1+ edema of the ankles. RESPIRATORY: Chest is clear to auscultation bilaterally. Bilateral equal air entry. No rales or rhonchi. ABDOMEN: Abdomen is soft. Positive bowel sounds. Nontender. No organomegaly. MUSCULOSKELETAL: No clubbing or cyanosis. 1+ edema of the ankles was noted. Dressing on the forearm was noted. CENTRAL NERVOUS SYSTEM: No focal deficit. Power is 5/5 in bilateral upper extremities. ARTERIOVENOUS (AV) ACCESS: Right upper arm AV fistula with thrill and bruit. LAB REVIEW: CBC showed a WBC of 7, hemoglobin 10.2 was from yesterday. There is no BMP available from today. CURRENT INPATIENT MEDICATIONS: There is no change in the medications today as compared with yesterday. ASSESSMENT AND PLAN: 1. End-stage renal disease, on hemodialysis. The patient was dialyzed yesterday according to her Tuesday, Tuesday, Tuesday schedule. Next hemodialysis session will be tomorrow. 2. Chronic diastolic congestive heart failure. Patient's volume status is better. Next hemodialysis will be tomorrow. Continue fluid restriction at 1.5 liters daily. 3. Anemia in end-stage renal disease. Hemoglobin is 10.2, which is optimal. I would start the patient on Aranesp with hemodialysis. 4. Chronic hypotension. Continue current dose of midodrine 2.5 mg three times a day. DISPOSITION: The patient is alternate level of care now. She will only be seen during hemodialysis on hemodialysis days.
[2018-05-16 22:37] VITALS: BP 160/76
[2018-05-17 06:15] VITALS: BP 138/70
[2018-05-17] MEDS: predniSONE 10 MG TAB PO SCH (06:16)
[2018-05-17] MEDS: VITAMIN D 1,000 INTERNATIONAL UNITS TABLET PO SCH (06:16)
[2018-05-17] MEDS: ASPIRIN 81 MG ENTERIC TAB PO SCH (06:16)
[2018-05-17] MEDS: APIXABAN 2.5 MG TAB (ELIQUIS) PO SCH ×2 (06:17→21:18)
[2018-05-17] MEDS: MYCOPHENOLATE MOFETIL 250 MG CAP (J7517) PO SCH ×2 (06:17→21:17)
[2018-05-17] MEDS: MIDODRINE 2.5 MG TAB PO SCH ×3 (06:17→16:39)
[2018-05-17] MEDS: (RENVELA) SEVELAMER **CARBONate** 800 MG TAB PO SCH ×3 (06:17→16:39)
[2018-05-17 07:05] LABS: CALCIUM LEVEL 8.7 MG/DL (8.8-10.2); CREATININE FOR GFR 5.62 MG/DL (0.55-1.30); GLOMERULAR FILTRATION RATE 7.6 (>32); POTASSIUM SERUM 4.6 MEQ/L (3.5-5.1)
[2018-05-17] MEDS: ONDANSETRON 4 MG ORAL DISINTEGRATING TAB (Q0162 PER 1MG) PO PRN ×2 (09:54→21:17)
[2018-05-17] MEDS ORDERED: HEPARIN 1,000 UNITS/ML 10ML VIAL (FOR RADIOLOGY& DIALYSIS ONLY) IV ONE (10:00)
--- NOTE | 2018-05-17 14:18 | IPN ---
DATE OF SERVICE: 05/17/2018 SUBJECTIVE: Patient was seen and examined at the bedside today morning during hemodialysis procedure. She is tolerating the hemodialysis procedure well. She is reporting that she is getting daily physical therapy and getting her strength back, and she is able to walk with the help of a walker now. OBJECTIVE: VITAL SIGNS: Temperature is 97.2 degrees Fahrenheit, blood pressure 138/70, pulse is 89, respiratory rate of 18, saturating 93% on room air. INTAKE AND OUTPUT: Urine output is not recorded. Weight on the bed scale is not available. PHYSICAL EXAM: GENERAL: Patient is awake, alert, oriented times three, laying in the bed getting hemodialysis done, no apparent distress. HEAD AND NECK EXAM: Extraocular muscles intact. Pupils equally round and reactive to light. Mucous membranes are moist. Neck is supple. There is no jugular venous distention (JVD). CARDIOVASCULAR: S1, S2. 1+ edema of the ankles. RESPIRATORY: Chest is clear to auscultation bilaterally. Bilateral equal air entry. No rales or rhonchi. ABDOMEN: Is soft. Positive bowel sounds. Nontender. No ascites. No organomegaly. MUSCULOSKELETAL: No clubbing or cyanosis. Pulses are 2+. CENTRAL NERVOUS SYSTEM (HUMANITIES TEACHER): No focal deficit. Power is 5/5 in all extremities. ARTERIOVENOUS (AV) ACCESS: Right upper arm AV fistula is being used for dialysis at this point. LAB REVIEW: CBC showed a WBC of 7, hemoglobin 10.2, and that is from 05/15/2018. BMP today morning showed sodium 132, potassium 4.6, chloride 94, bicarbonate 24, BUN 42, creatinine is 5.6. CURRENT INPATIENT MEDICATIONS: Patient's medications were all reviewed by me, and there is no change in the medications today as compared with yesterday. ASSESSMENT AND PLAN: 1. End-stage renal disease, on hemodialysis. Patient is being dialyzed today according to her regular Tuesday, Tuesday, Tuesday schedule. Ultrafiltration goal would be around 2-2.5 kg as tolerated by her blood pressure. 2. Chronic diastolic congestive heart failure. Volume status is optimized. Continue the fluid restriction. No need of extra ultrafiltration. Fluid removal would be around 2.5 kg as tolerated. 3. Anemia in end-stage renal disease. Hemoglobin is optimal at this point. Continue current dose of Aranesp 100 mcg with hemodialysis once a week. 4. Chronic hypotension. Blood pressure is controlled at this point. Continue current dose of midodrine 2.5 mg three times a day.
[2018-05-17 22:00] VITALS: BP 148/66
[2018-05-17] MEDS: PERCOCET 5MG/325MG TAB PO PRN (23:11)
[2018-05-18 06:00] VITALS: BP 139/66
[2018-05-18 07:19] LABS: CALCIUM LEVEL 8.6 MG/DL (8.8-10.2); CREATININE FOR GFR 4.22 MG/DL (0.55-1.30); GLOMERULAR FILTRATION RATE 10.6 (>32); POTASSIUM SERUM 4.3 MEQ/L (3.5-5.1)
[2018-05-18] MEDS: VITAMIN D 1,000 INTERNATIONAL UNITS TABLET PO SCH (08:32)
[2018-05-18] MEDS: MIDODRINE 2.5 MG TAB PO SCH ×3 (08:32→16:00)
[2018-05-18] MEDS: predniSONE 10 MG TAB PO SCH (08:32)
[2018-05-18] MEDS: ASPIRIN 81 MG ENTERIC TAB PO SCH (08:32)
[2018-05-18] MEDS: APIXABAN 2.5 MG TAB (ELIQUIS) PO SCH ×2 (08:32→20:28)
[2018-05-18] MEDS: ONDANSETRON 4 MG ORAL DISINTEGRATING TAB (Q0162 PER 1MG) PO PRN ×3 (08:32→17:56)
[2018-05-18] MEDS: MYCOPHENOLATE MOFETIL 250 MG CAP (J7517) PO SCH ×2 (08:32→20:28)
[2018-05-18] MEDS: (RENVELA) SEVELAMER **CARBONate** 800 MG TAB PO SCH ×3 (08:32→17:56)
[2018-05-18] MEDS: PERCOCET 5MG/325MG TAB PO PRN (08:33)
[2018-05-18 16:54] VITALS: BP 148/82
[2018-05-18 20:00] VITALS: BP 137/63
[2018-05-19] MEDS: PERCOCET 5MG/325MG TAB PO PRN ×2 (00:31→12:54)
[2018-05-19] MEDS: ONDANSETRON 4 MG ORAL DISINTEGRATING TAB (Q0162 PER 1MG) PO PRN ×2 (00:31→08:27)
[2018-05-19 06:00] VITALS: BP 130/62
[2018-05-19] MEDS: ASPIRIN 81 MG ENTERIC TAB PO SCH (06:33)
[2018-05-19] MEDS: predniSONE 10 MG TAB PO SCH (06:33)
[2018-05-19] MEDS: APIXABAN 2.5 MG TAB (ELIQUIS) PO SCH ×2 (06:34→20:23)
[2018-05-19] MEDS: MYCOPHENOLATE MOFETIL 250 MG CAP (J7517) PO SCH ×2 (06:34→12:03)
[2018-05-19] MEDS: MIDODRINE 2.5 MG TAB PO SCH ×3 (08:00→16:37)
[2018-05-19 08:01] LABS: CALCIUM LEVEL 8.2 MG/DL (8.8-10.2); CREATININE FOR GFR 5.55 MG/DL (0.55-1.30); GLOMERULAR FILTRATION RATE 7.7 (>32); POTASSIUM SERUM 5.8 MEQ/L (3.5-5.1)
[2018-05-19] MEDS: (RENVELA) SEVELAMER **CARBONate** 800 MG TAB PO SCH ×3 (08:26→16:38)
[2018-05-19] MEDS: VITAMIN D 1,000 INTERNATIONAL UNITS TABLET PO SCH (08:26)
[2018-05-19 12:45] VITALS: BP 134/74
--- NOTE | 2018-05-19 13:25 | IPN ---
DATE: 05/19/2018 SUBJECTIVE: Patient was seen and examined at the bedside today morning during hemodialysis procedure. She is tolerating the hemodialysis procedure well. She denies any active complaints. She reports that she is getting more physical therapy (PT) and she is planning to go to rehabilitation because she is unable to take care of herself at home. OBJECTIVE: VITAL SIGNS: Temperature is 97.7 degrees Fahrenheit, blood pressure 130/62, pulse is 83, respiratory rate of 18, saturating 94% on room air. INTAKE AND OUTPUT: Urine output is not recorded. Weight on the bed scale was 53 kg yesterday. PHYSICAL EXAMINATION: GENERAL: Patient is awake, alert, oriented times three, laying in the bed getting hemodialysis done, no apparent distress. HEAD AND NECK EXAM: Extraocular muscles intact. Pupils equally round and reactive to light. Mucous membranes are moist. Neck is supple. There is no jugular venous distention (JVD). CARDIOVASCULAR: S1, S2. No edema of the ankles. RESPIRATORY: Chest is clear to auscultation bilaterally. Bilateral equal air entry. No rales or rhonchi. ABDOMEN: Is soft. Positive bowel sounds. Nontender. No ascites. No organomegaly. MUSCULOSKELETAL: No clubbing or cyanosis. Pulses are 2+. CENTRAL NERVOUS SYSTEM (JUNIOR SYSTEMS ADMINISTRATOR): No focal deficit. Power is 5/5 in all extremities. ARTERIOVENOUS (AV) ACCESS: She has a right upper arm AV fistula, which is being used for dialysis. LAB REVIEW: BMP showed sodium 139, potassium 5.8, chloride 94, bicarbonate 25, BUN 41, creatinine is 5.5, calcium is 8.2. CURRENT INPATIENT MEDICATIONS: Patient's medications were all reviewed by me, and there is no change in the medications today as compared with yesterday. ASSESSMENT AND PLAN: 1. End-stage renal disease, on hemodialysis. Patient is being dialyzed today according to her regular Tuesday, Tuesday, Tuesday schedule. Ultrafiltration goal will be at least 1 liters, as tolerated by her blood pressure. 2. Chronic diastolic congestive heart failure. Volume status is optimized. She was requiring extra ultrafiltration as an outpatient but at this time her edema is well controlled. Continue three times a week dialysis. 3. Anemia in end-stage renal disease. Hemoglobin is 10.2 on latest lab, which is optimal. 4. Hyperkalemia. Potassium is 5.8 on today's laboratories. She is being dialyzed with a 2 K bath. Potassium level is expected to improve. 5. Chronic hypotension. Continue current dose of midodrine three times a day.
[2018-05-19 14:00] VITALS: BP 122/68
[2018-05-19 22:00] VITALS: BP 157/70
[2018-05-20 06:00] VITALS: BP 147/65
[2018-05-20] MEDS: (RENVELA) SEVELAMER **CARBONate** 800 MG TAB PO SCH ×4 (08:00→17:06)
[2018-05-20] MEDS: VITAMIN D 1,000 INTERNATIONAL UNITS TABLET PO SCH (08:37)
[2018-05-20] MEDS: MIDODRINE 2.5 MG TAB PO SCH ×3 (08:37→17:54)
[2018-05-20] MEDS: APIXABAN 2.5 MG TAB (ELIQUIS) PO SCH ×2 (08:37→21:10)
[2018-05-20] MEDS: ASPIRIN 81 MG ENTERIC TAB PO SCH (08:37)
[2018-05-20] MEDS: predniSONE 10 MG TAB PO SCH (08:37)
[2018-05-20] MEDS: MYCOPHENOLATE MOFETIL 250 MG CAP (J7517) PO SCH ×2 (08:37→21:10)
[2018-05-20 08:39] VITALS: BP 119/57
[2018-05-20] MEDS: ONDANSETRON 4 MG ORAL DISINTEGRATING TAB (Q0162 PER 1MG) PO PRN ×2 (09:43→21:10)
[2018-05-20] MEDS: PERCOCET 5MG/325MG TAB PO PRN ×2 (09:43→21:10)
[2018-05-20 14:00] VITALS: BP 158/74
[2018-05-20 17:40] VITALS: BP 100/55
[2018-05-20] MEDS: cefTRIAXone SOD 1 GM in D5W MINI-BAG PLUS 50 ML IV SCH (17:54)
[2018-05-20 21:00] VITALS: BP 142/68
[2018-05-21 07:30] VITALS: BP 126/64
[2018-05-21] MEDS: MIDODRINE 2.5 MG TAB PO SCH ×3 (08:43→16:33)
[2018-05-21] MEDS: predniSONE 10 MG TAB PO SCH (08:43)
[2018-05-21] MEDS: APIXABAN 2.5 MG TAB (ELIQUIS) PO SCH ×2 (08:43→21:46)
[2018-05-21] MEDS: (RENVELA) SEVELAMER **CARBONate** 800 MG TAB PO SCH ×3 (08:43→17:25)
[2018-05-21] MEDS: MYCOPHENOLATE MOFETIL 250 MG CAP (J7517) PO SCH ×2 (08:43→21:46)
[2018-05-21] MEDS: VITAMIN D 1,000 INTERNATIONAL UNITS TABLET PO SCH (08:43)
[2018-05-21] MEDS: ASPIRIN 81 MG ENTERIC TAB PO SCH (08:43)
[2018-05-21] MEDS: ONDANSETRON 4 MG ORAL DISINTEGRATING TAB (Q0162 PER 1MG) PO PRN ×2 (08:48→21:46)
[2018-05-21] MEDS: PERCOCET 5MG/325MG TAB PO PRN ×2 (08:49→21:47)
[2018-05-21] MEDS: cefTRIAXone SOD 1 GM in D5W MINI-BAG PLUS 50 ML IV SCH (11:59)
[2018-05-21 22:00] VITALS: BP 140/62
[2018-05-22 06:00] VITALS: BP 128/60
[2018-05-22 07:10] LABS: HEMATOCRIT 33.9 % (36.0-47.0); MEAN CORPUSCULAR HEMOGLOBIN 30.7 pg (27.0-33.0); MEAN CORPUSCULAR HGB CONC 29.5 g/dl (32.0-36.5); PLATELET COUNT, AUTOMATED 232 10^3/uL (150-450); RED BLOOD COUNT 3.26 10^6/uL (4.00-5.40); WHITE BLOOD COUNT 6.3 10^3/uL (4.0-10.0)
[2018-05-22] MEDS: (RENVELA) SEVELAMER **CARBONate** 800 MG TAB PO SCH ×3 (07:15→18:00)
[2018-05-22] MEDS: APIXABAN 2.5 MG TAB (ELIQUIS) PO SCH ×2 (07:15→21:10)
[2018-05-22] MEDS: MYCOPHENOLATE MOFETIL 250 MG CAP (J7517) PO SCH ×2 (07:15→21:10)
[2018-05-22] MEDS: ASPIRIN 81 MG ENTERIC TAB PO SCH (07:15)
[2018-05-22] MEDS: VITAMIN D 1,000 INTERNATIONAL UNITS TABLET PO SCH (07:15)
[2018-05-22] MEDS: MIDODRINE 2.5 MG TAB PO SCH ×3 (07:15→16:00)
[2018-05-22] MEDS: predniSONE 10 MG TAB PO SCH (07:15)
[2018-05-22] MEDS: ONDANSETRON 4 MG ORAL DISINTEGRATING TAB (Q0162 PER 1MG) PO PRN ×2 (07:20→21:10)
[2018-05-22] MEDS: PERCOCET 5MG/325MG TAB PO PRN ×2 (07:21→21:12)
[2018-05-22 07:41] LABS: CALCIUM LEVEL 8.1 MG/DL (8.8-10.2); CREATININE FOR GFR 6.85 MG/DL (0.55-1.30); GLOMERULAR FILTRATION RATE 6.1 (>32); POTASSIUM SERUM 5.1 MEQ/L (3.5-5.1)
[2018-05-22] MEDS ORDERED: PILL CRUSHER/CUTTER 1 EACH XX PRN (12:30)
[2018-05-22] MEDS ORDERED: HEPARIN 1,000 UNITS/ML 10ML VIAL (FOR RADIOLOGY& DIALYSIS ONLY) IV ONE (12:30)
[2018-05-22] MEDS ORDERED: LIDOCAINE 1% SDV 5 ML VIAL SQ ONE (12:30)
[2018-05-22] MEDS ORDERED: HEPARIN 1,000 UNITS/ML 10ML VIAL (FOR RADIOLOGY& DIALYSIS ONLY) XX ONE (12:30)
[2018-05-22] MEDS: MEGESTROL 40 MG TAB PO SCH (13:16)
[2018-05-22] MEDS: DOCUSATE SODIUM 100 MG CAP PO SCH (13:17)
[2018-05-22 14:00] VITALS: BP 117/57
[2018-05-22 16:36] VITALS: BP 139/63
[2018-05-22 20:00] VITALS: BP 135/65
[2018-05-23 05:29] VITALS: BP 138/86
[2018-05-23] MEDS: PERCOCET 5MG/325MG TAB PO PRN (05:36)
--- NOTE | 2018-05-23 06:55 | IPN ---
DATE OF SERVICE: 05/22/2018 SUBJECTIVE: Janay is seen and examined this morning in the dialysis unit, receiving her maintenance treatment. She complains of some constipations, requests a stool softener. Reports physical therapy is going well. She is tolerating her treatment without any issues and denies any other complaints. VITAL SIGNS: Temperature 99.0, pulse 95, respiratory rate 18, blood pressure 117/57, saturating 91-95% on room air. INTAKE AND OUTPUT: Intake yesterday was 900 mL, dialysis today removed 2000 mL. GENERAL: Patient is seen on hemodialysis, awake, alert, oriented, comfortable, in no acute distress, receiving her maintenance treatment. HEENT: Extraocular muscles are intact. Pupils are round and reactive to light. Mucous membranes are moist. The jugular veins are not elevated. CARDIAC: S1, S2 regular rate and rhythm. No significant peripheral edema. RESPIRATORY: Chest is clear to auscultation bilaterally. There is no rales or rhonchi. Respirations are rested. ABDOMEN: Soft, there are bowel sounds. Belly is nontender. MUSCULOSKELETAL: There is decreased lean muscle mass. There is pedal edema on the right foot. Her right upper extremity fistula is in use. NEUROLOGIC: She is oriented, no focal deficits. LABORATORIES: White count 6.3, hemoglobin 10.0, sodium 132, potassium 5.1, glucose 74, platelets 232. INPATIENT MEDICATIONS: Reviewed by myself and I have ordered docusate 100 mg by mouth daily and megestrol 10 mg by mouth daily. Remainder of medications are unchanged from prior. PROBLEMS: 1. End stage renal disease on hemodialysis. Patient continues on her usual maintenance schedule of Tuesday, Tuesday, and Tuesday. Her volume status is acceptable. She is tolerating her treatments well. Goal ultrafiltration today is 2 liters. Her electrolytes are reasonable and mild hyponatremia is related to combination end stage renal disease and diastolic congestive heart failure (CHF). 2. Chronic diastolic congestive heart failure. Volume status is optimized. She is tolerating her treatments well. Goal fluid removal is 2 liters today. She continues on appropriate oral fluid restriction. She is pending a stress test in the outpatient setting. 3. Anemia related to chronic renal failure. Hemoglobin is 10.0, which is at target and patient continues on Aranesp. 4. Deep vein thrombosis (DVT). Patient continues on Eliquis 2.5 mg by mouth twice a day without any reported issues. 5. Chronic hypotension. Patient continues on midodrine and blood pressures have been reasonable.
[2018-05-23] MEDS: MIDODRINE 2.5 MG TAB PO SCH (08:00)
[2018-05-23] MEDS: DOCUSATE SODIUM 100 MG CAP PO SCH (08:22)
[2018-05-23] MEDS: MYCOPHENOLATE MOFETIL 250 MG CAP (J7517) PO SCH (08:23)
[2018-05-23] MEDS: (RENVELA) SEVELAMER **CARBONate** 800 MG TAB PO SCH (08:23)
[2018-05-23] MEDS: APIXABAN 2.5 MG TAB (ELIQUIS) PO SCH (08:23)
[2018-05-23] MEDS: VITAMIN D 1,000 INTERNATIONAL UNITS TABLET PO SCH (08:23)
[2018-05-23] MEDS: MEGESTROL 40 MG TAB PO SCH (08:23)
[2018-05-23] MEDS: ASPIRIN 81 MG ENTERIC TAB PO SCH (08:23)
[2018-05-23 08:24] VITALS: BP 130/60
[2018-05-23] MEDS: ONDANSETRON 4 MG ORAL DISINTEGRATING TAB (Q0162 PER 1MG) PO PRN (08:24)
[2018-05-23] MEDS: predniSONE 10 MG TAB PO SCH (08:42)
[2018-05-23] MEDS ORDERED: COLA100C5 PO (09:29)
[2018-05-23] MEDS ORDERED: ELIQ2.5T PO (09:29)
--- NOTE | 2018-05-23 15:23 | DSES ---
DATE OF ADMISSION: 05/11/2018 DATE OF DISCHARGE: 05/23/2018 Addendum to discharge summary dictated on 05/16/2018 -- please see report #[id number]. Patient has been long-term facility (SNF) since 05/16/2018. There has been no change to her medical condition since the date of her SNF status. She has been followed by nephrology during that time and has continued to undergo renal dialysis on a regular remain in schedule, Tuesday, Wednesdays, and Fridays. Her volume status at the time of discharge is acceptable, and tolerating her treatments well. She has a goal ultrafiltration of 2 liters on her most recent dialysis which was 05/22/2018. Recent labs show electrolytes to be fairly stable and hemoglobin to be stable as well. Blood pressure has also remained stable. Her medications at the time of discharge include: - Eliquis 2.5 mg twice a day - Colace 100 mg daily - aspirin 81 mg daily - vitamin D 1000 international units daily - Flonase one spray daily - Lactaid three times a day as needed for lactose intolerance - Megace 10 mg daily - midodrine 2.5 mg three times a day - mycophenolate mofetil 250 mg twice a day - Zofran 4 mg every 8 hours as needed for nausea - Percocet 5/325 a half a tablet four times a day as needed for pain - prednisone 10 mg daily - Renvela 800 mg three times a day Discharge diagnoses are the same as those dictated at the time of her SNF summary.
== END 2018-05-23 11:45 | disposition home or self-care (01) | DRG 299 ==
LOC: EDBD 11:41 → M ED 11:41 → M ED INP 19:39 → EEVIPCON 19:39 → M MS4PR 21:14
PROVIDERS: ADMIT Internal Medicine; ATTEND Family Medicine
PROC: 5A1D70Z Performance of Urinary Filtration, Intermittent, Less than 6 Hours Per Day (ICD-10-PCS; principal; 2018-05-12)
DX: I82.412 Acute embolism and thrombosis of left femoral vein (principal); N18.6 End stage renal disease; I50.32 Chronic diastolic (congestive) heart failure; N25.81 Secondary hyperparathyroidism of renal origin; Z79.82 Long term (current) use of aspirin; Z79.899 Other long term (current) drug therapy; Z88.2 Allergy status to sulfonamides; Z88.5 Allergy status to narcotic agent; Z88.8 Allergy status to other drugs, medicaments and biological substances; I95.9 Hypotension, unspecified; M06.9 Rheumatoid arthritis, unspecified; D63.1 Anemia in chronic kidney disease; E87.70 Fluid overload, unspecified; E83.39 Other disorders of phosphorus metabolism

== ENCOUNTER 2018-08-23 18:50 | Emergency (ER) | payer MEDICARE, MEDICAID ==
[~2018-08-23] VITALS: Ht 162.6 cm; Wt 59.1 kg
[~2018-08-23 18:50] MED LIST changes: -ASPI1TAB PO; +ASPI81TA24 PO; +ASPI81TA26 PO; -CALC0.5C OR; +CALC0.5C14 OR; +DIPH2.5T14 PO; +ELIQ2.5T PO; +MYCO250C PO; +PRED10TA2 PO; +SEVE800T3 PO; +VITA-122 PO
--- NOTE | 2018-08-23 19:47 | REP ---
PORTABLE CHEST: AP portable view of the chest is performed and compared to prior study of 09/13/2017. There is poor ventilation. Diffuse interstitial fibrosis is again noted. No definite new infiltrate is seen. There is cardiomegaly. There is calcification and tortuosity of the thoracic aorta. Electronically Signed by Abdullahi Lawton MD 08/28/2018 01:38 P
--- NOTE | 2018-08-23 20:18 | ECGEPIP ---
[facility] - ED Test Date: 2018-08-23 Pat Name: ANI ROONEY Department: Room: - Gender: Female Hospice Massage Therapist: SIOBHAN : [id number] Requested By: Mariluz Harper Order Number: [id number] Reading MD: Mariluz Harper Measurements Intervals [place] Rate: 107 P: 24 VT: 160 QRS: QRSD: 90 T: 50 QT: 329 QTc: 440 Interpretive Statements SINUS TACHYCARDIA MARKED LEFT AXIS DEVIATION LEFT VENTRICULAR HYPERTROPHY AND ST-T CHANGE POSSIBLE ANTERIOR MYOCARDIAL INFARCTION, PROBABLY OLD NSTTW ABNORMALITY NO PRIOR FOR COMPARISON Electronically Signed on 08-23-2018 20:17:50 EDT by Mariluz Harper
[2018-08-23 20:25] LABS: BASO % 0.2 % (0.0-1.0); EOS % 0.1 % (0.0-3.0); HEMATOCRIT 29.7 % (36.0-47.0); HEMOGLOBIN 9.4 g/dl (12.0-15.5); LYMPH % 1.6 % (24.0-44.0); MEAN CORPUSCULAR HEMOGLOBIN 31.2 pg (27.0-33.0); MEAN CORPUSCULAR HGB CONC 31.6 g/dl (32.0-36.5); MEAN CORPUSCULAR VOLUME 98.7 fl (80.0-96.0); MONO # 0.6 10^3/uL (0.0-0.8); NEUTROPHILS # 10.6 10^3/uL (1.8-7.7); NEUTROPHILS % 91.9 % (36.0-66.0); PLATELET COUNT, AUTOMATED 212 10^3/uL (150-450); RED BLOOD COUNT 3.01 10^6/uL (4.00-5.40); WHITE BLOOD COUNT 11.5 10^3/uL (4.0-10.0)
[2018-08-23 20:39] LABS: LYMPH # 0.2 10^3/uL (1.5-4.5)
[2018-08-23 20:49] LABS: CALCIUM LEVEL 9.1 MG/DL (8.8-10.2); CREATININE FOR GFR 3.15 MG/DL (0.55-1.30); GLOMERULAR FILTRATION RATE 14.9 (>32); MB/CK RELATIVE INDEX 10.56 (< OR =4); POTASSIUM SERUM 4.4 MEQ/L (3.5-5.1); TROPONIN I 0.06 NG/ML (< 0.10)
[2018-08-23 23:22] LABS: MB/CK RELATIVE INDEX 10.31 (< OR =4); TROPONIN I 0.11 NG/ML (< 0.10)
[2018-08-24 00:59] VITALS: BP 107/60
--- NOTE | 2018-08-26 07:47 | ECGEPIP ---
[facility] - ED Test Date: 2018-08-23 Pat Name: ANI ROONEY Department: Room: - Gender: Female Cartography Technician: SIOBHAN : 1930 Requested By: Alex Lozoya Order Number: [id number] Reading MD: Blanco Avila Measurements Intervals [place] Rate: 102 P: 19 CT: 165 QRS: QRSD: 82 T: 38 QT: 324 QTc: 424 Interpretive Statements SINUS TACHYCARDIA WITH OCCASIONAL SUPRAVENTRICULAR PREMATURE COMPLEXES MARKED LEFT AXIS DEVIATION Left ventricular hypertrophy ST-T Wave abnormality Suspected previous anterior FL Similar to tracing done 08-23-18 Electronically Signed on 08-26-2018 7:47:27 EDT by Blanco Avila
== END 2018-08-24 01:31 | disposition home or self-care (01) ==
LOC: M ED 18:50 → EDBD 18:50 → M ED 08-24 01:31
DX: R07.89 Other chest pain (principal); R06.02 Shortness of breath; N18.6 End stage renal disease; Z99.2 Dependence on renal dialysis; J84.10 Pulmonary fibrosis, unspecified; I12.0 Hypertensive chronic kidney disease with stage 5 chronic kidney disease or end stage renal disease; I73.9 Peripheral vascular disease, unspecified; F95.9 Tic disorder, unspecified; Z79.899 Other long term (current) drug therapy; Z79.82 Long term (current) use of aspirin; Z79.01 Long term (current) use of anticoagulants; Z88.1 Allergy status to other antibiotic agents; Z88.2 Allergy status to sulfonamides; Z88.5 Allergy status to narcotic agent; Z88.8 Allergy status to other drugs, medicaments and biological substances

== ENCOUNTER 2018-08-28 15:06 | Inpatient (IN) | payer MEDICARE, MEDICAID ==
[~2018-08-28] VITALS: Ht 149.9 cm; Wt 55.9 kg
--- NOTE | 2018-08-28 16:55 | REP ---
Chest two views HISTORY: Shortness of breath Comparison: 08/23/2018 An increase in interstitial markings is present in the lungs consistent with chronic interstitial fibrosis. A calcified granuloma is present in the left upper lobe. The cardiac silhouette is enlarged. The heart is normal in size. The pulmonary vasculature is normal in appearance. The bony structure is intact. IMPRESSION: 1. Chronic interstitial fibrosis. 2. Cardiomegaly. Electronically Signed by Scott Frost MD 08/28/2018 04:46 P
[2018-08-28 17:04] LABS: BASO % 0.2 % (0.0-1.0); EOS % 0.1 % (0.0-3.0); HEMATOCRIT 29.5 % (36.0-47.0); HEMOGLOBIN 9.1 g/dl (12.0-15.5); LYMPH # 0.4 10^3/uL (1.5-4.5); LYMPH % 3.1 % (24.0-44.0); MEAN CORPUSCULAR HGB CONC 30.8 g/dl (32.0-36.5); MEAN CORPUSCULAR VOLUME 103.9 fl (80.0-96.0); MONO # 0.3 10^3/uL (0.0-0.8); MONO % 2.4 % (0.0-5.0); NEUTROPHILS % 91.4 % (36.0-66.0); PLATELET COUNT, AUTOMATED 212 10^3/uL (150-450); RED BLOOD COUNT 2.84 10^6/uL (4.00-5.40); WHITE BLOOD COUNT 13.1 10^3/uL (4.0-10.0)
[2018-08-28 17:35] LABS: CALCIUM LEVEL 8.4 MG/DL (8.8-10.2); CK-MB VALUE MASS 1.6 NG/ML (<3.6); CREATININE FOR GFR 5.82 MG/DL (0.55-1.30); GLOMERULAR FILTRATION RATE 7.3 (>32); MB/CK RELATIVE INDEX 3.9 (< OR =4); POTASSIUM SERUM 5.4 MEQ/L (3.5-5.1); THYROID STIMULATING HORMONE 4.58 uIU/ML (0.358-3.740); TROPONIN I 0.1 NG/ML (< 0.10)
[2018-08-28] MEDS ORDERED: ELIQ2.5T PO (19:54)
[2018-08-28] MEDS ORDERED: RENV2TAB PO (19:54)
[2018-08-28] MEDS ORDERED: RANI1TAB6 PO (19:54)
--- NOTE | 2018-08-28 20:38 | HPEPDOC ---
[facility] Medical History & Physical Date of Admission Aug 28, 2018 Date of Service: Aug 28, 2018 History and Physical CHIEF COMPLAINT: LE swelling HISTORY OF PRESENT ILLNESS: Patient is an 88-year-old female with past medical history of ESRD on HD MWF, glomerulonephritis, DVT and Eliquis, IBS presented to ER with complaints of worsening lower extremity swelling and shortness of breath. Patient was supposed to go into dialysis center to repeat extra dialysis session on Tuesday but had missed appointment due to having diarrhea at home. She is currently comfortable at rest and reports mild SOB but otherwise denies any other compliants including chest pain, fever, chills. Requesting to get HD. Follows with Dr. Parekh for HD. PAST MEDICAL HISTORY: Refer to [facility] PAST SURGICAL HISTORY: Hysterectomy Appendectomy SOCIAL HISTORY: Denies tobacco, alcohol or illicit drug use. FAMILY HISTORY: Father with coronary disease ALLERGIES: Please see below. REVIEW OF SYSTEMS: 10 point review of system negative except as stated in HPI HOME MEDICATIONS: Please see below. PHYSICAL EXAMINATION: General: No acute distress, Alert Eyes: Normal sclera, EOMI, FRITZ HENT: Atraumatic, neck supple, moist mucous membranes Cardiovascular: Normal rate, normal rhythm. 1+ pitting edema b/l, wears compression stocking. Pulmonary: Clear to auscultation b/l, no wheezing GI: Soft, nontender, nondistended Skin: Warm and dry Neuro: CN grossly intact. No focal deficits. Strengths equal b/l. Psych: oriented x 3 LABORATORY DATA: See below. IMAGING: CXR- IMPRESSION: 1. Chronic interstitial fibrosis. 2. Cardiomegaly. MICROBIOLOGY: Please see below. ASSESSMENT AND PLAN: 1. ESRD on HD - Fluid overload, missed last extra session on tuesday and was supposed to get routine HD today. - K+ 5.4. Plan for HD tonight. - Nephrology consulted. - f/u BMP in AM. - LE swelling but no significant SOB at rest. 2. Glomerulonephritis - c/w home steroid. 3. DVT - c/w Eliquis. 4. IBS - Intermittent periods of diarrhea. - No diarrhea reported today. DVT ppx: Eliquis and SCD Code status: DNR Vital Signs Vital Signs Date Time Temp Pulse Resp B/P (MAP) Pulse Ox O2 Delivery O2 Flow Rate FiO2 08/28/18 19:00 81 173/70 (104) 93 Room Air 08/28/18 18:15 20 08/28/18 16:09 97.8 Laboratory Data Labs 24H Laboratory Tests 2 08/28/18 16:39: Immature Granulocyte % (Auto) 2.8, White Blood Count 13.1H, Red Blood Count 2.84L, Hemoglobin 9.1L, Hematocrit 29.5L, Mean Corpuscular Volume 103.9H, Mean Corpuscular Hemoglobin 32.0, Mean Corpuscular Hemoglobin Concent 30.8L, Red Cell Distribution Width 17.1H, Platelet Count 212, Neutrophils (%) (Auto) 91.4H, Lymphocytes (%) (Auto) 3.1L, Monocytes (%) (Auto) 2.4, Eosinophils (%) (Auto) 0.1, Basophils (%) (Auto) 0.2, Neutrophils # (Auto) 12.0H, Lymphocytes # (Auto) 0.4L, Monocytes # (Auto) 0.3, Eosinophils # (Auto) 0.0, Basophils # (Auto) 0.0, Nucleated Red Blood Cells % (auto) 0.0, Anion Gap 13, Glomerular Filtration Rate 7.3L, Blood Urea Nitrogen 59H, Creatinine 5.82H, Sodium Level 136, Potassium Level 5.4H, Chloride Level 97L, Carbon Dioxide Level 26, Calcium Level 8.4L, Total Creatine Kinase 41, Creatine Kinase MB 1.6, Creatine Kinase MB Relative Index 3.90, Troponin I 0.10, Thyroid Stimulating Hormone (TSH) 4.580H CBC/BMP Laboratory Tests 08/28/18 16:39 Red Blood Count 2.84 L, Mean Corpuscular Volume 103.9 H, Mean Corpuscular Hemoglobin 32.0, Mean Corpuscular Hemoglobin Concent 30.8 L, Red Cell Distribution Width 17.1 H, Neutrophils (%) (Auto) 91.4 H, Lymphocytes (%) (Auto) 3.1 L, Monocytes (%) (Auto) 2.4, Eosinophils (%) (Auto) 0.1, Basophils (%) (Auto) 0.2, Neutrophils # (Auto) 12.0 H, Lymphocytes # (Auto) 0.4 L, Monocytes # (Auto) 0.3, Eosinophils # (Auto) 0.0, Basophils # (Auto) 0.0, Calcium Level 8.4 L, Total Creatine Kinase 41 Home Medications Scheduled Apixaban (Eliquis) 2.5 Mg Tablet, 2.5 MG PO BID Aspirin (Aspirin EC) 81 Mg Tab, 81 MG PO DAILY Cholecalciferol (Vitamin D3) (Vitamin D3) 1,000 Unit Tab, 1,000 UNITS PO DAILY Megestrol Acetate (Megestrol Acetate) 20 Mg Tab, 10 MG PO DAILY Midodrine HCl (Midodrine HCl) 2.5 Mg Tab, 2.5 MG PO TID Mycophenolate Mofetil (Mycophenolate Mofetil) 250 Mg Cap, 250 MG PO BID Prednisone (Prednisone) 10 Mg Tab, 10 MG PO DAILY Sevelamer Carbonate (Renvela) 800 Mg Tablet, 800 MG PO TID Scheduled PRN Ondansetron (Ondansetron Odt) 4 Mg Tab, 4 MG PO Q8H PRN for NAUSEA Oxycodone HCl/Acetaminophen (Percocet 5-325 mg Tablet) 1 Tab Tab, 0.5 TAB PO QID PRN for PAIN Ranitidine HCl (Ranitidine HCl) 150 Mg Tablet, 1 TAB PO DAILY PRN for INDIGESTION Allergies Coded Allergies: Cephalosporins (Verified Allergy, Unknown, NAUSEA, 08/24/18) Sulfa (Sulfonamide Antibiotics) (Verified Allergy, Unknown, 08/24/18) Tetracyclines (Verified Allergy, Unknown, 08/24/18) cefuroxime (Verified Allergy, Unknown, NAUSEA, 08/24/18) codeine (Verified Allergy, Unknown, 08/24/18) fenofibrate (Verified Allergy, Unknown, 08/24/18) morphine (Verified Allergy, Unknown, CONFUSION , 08/24/18) moxifloxacin (Verified Allergy, Unknown, 08/24/18) sulfamethoxazole (Verified Allergy, Unknown, NAUSEA, 08/24/18) trimethoprim (Verified Allergy, Unknown, NAUSEA, 08/24/18) A-FIB/CHADSVASC A-FIB History Current/History of A-Fib/PAF?: No JACQUI LAMBERT MD Aug 28, 2018 20:38
[2018-08-28 22:32] VITALS: BP 135/91
[2018-08-28] MEDS: PERCOCET 5MG/325MG TAB PO PRN (22:40)
[2018-08-28] MEDS: APIXABAN 2.5 MG TAB (ELIQUIS) PO SCH (22:52)
[2018-08-28] MEDS: MYCOPHENOLATE MOFETIL 250 MG CAP (J7517) PO SCH (22:52)
[2018-08-29] VITALS (7 sets, daily range): BP systolic 98–151; BP diastolic 51–69
[2018-08-29] MEDS ORDERED: PERCOCET 5MG/325MG TAB PO ONE
[2018-08-29] MEDS: PERCOCET 5MG/325MG TAB PO PRN (07:29)
[2018-08-29 07:50] LABS: HEMATOCRIT 25.7 % (36.0-47.0); HEMOGLOBIN 7.7 g/dl (12.0-15.5); MEAN CORPUSCULAR HEMOGLOBIN 30.1 pg (27.0-33.0); MEAN CORPUSCULAR VOLUME 100.4 fl (80.0-96.0); PLATELET COUNT, AUTOMATED 201 10^3/uL (150-450); RED BLOOD COUNT 2.56 10^6/uL (4.00-5.40); WHITE BLOOD COUNT 10.6 10^3/uL (4.0-10.0)
--- NOTE | 2018-08-29 08:03 | ECGEPIP ---
[facility] - ED Test Date: 2018-08-28 Pat Name: ANI ROONEY Department: Room: - Gender: Female [employer]: TC : 1930 Requested By: NATHALIA Dove Order Number: [id number] Reading MD: Alex Smith Measurements Intervals [place] Rate: 83 P: 16 VA: 177 QRS: QRSD: 93 T: 29 QT: 354 QTc: 416 Interpretive Statements SINUS RHYTHM LEFT AXIS DEVIATION MODERATE VOLTAGE CRITERIA FOR LVH, CONSIDER NORMAL VARIANT POSSIBLE ANTERIOR MYOCARDIAL INFARCTION, OF INDETERMINATE AGE SIMILAR TO 08/23/18 Electronically Signed on 08-29-2018 8:02:53 EDT by Alex Smith
[2018-08-29 08:15] LABS: CALCIUM LEVEL 8.6 MG/DL (8.8-10.2); CREATININE FOR GFR 6.4 MG/DL (0.55-1.30); GLOMERULAR FILTRATION RATE 6.6 (>32); POTASSIUM SERUM 5.3 MEQ/L (3.5-5.1)
[2018-08-29] MEDS: VITAMIN D 1,000 INTERNATIONAL UNITS TABLET PO SCH (08:26)
[2018-08-29] MEDS: ASPIRIN 81 MG ENTERIC TAB PO SCH (08:26)
[2018-08-29] MEDS: MIDODRINE 2.5 MG TAB PO SCH ×3 (08:26→16:16)
[2018-08-29] MEDS: predniSONE 10 MG TAB PO SCH (08:26)
[2018-08-29] MEDS: MYCOPHENOLATE MOFETIL 250 MG CAP (J7517) PO SCH ×2 (08:26→20:11)
[2018-08-29] MEDS: (RENVELA) SEVELAMER **CARBONate** 800 MG TAB PO SCH ×3 (08:26→17:03)
[2018-08-29] MEDS: APIXABAN 2.5 MG TAB (ELIQUIS) PO SCH ×2 (08:26→20:12)
[2018-08-29] MEDS: ONDANSETRON 4 MG ORAL DISINTEGRATING TAB (Q0162 PER 1MG) PO PRN (09:47)
[2018-08-29] MEDS ORDERED: LIDOCAINE 1% SDV 5 ML VIAL SQ ONE (10:30)
[2018-08-29] MEDS ORDERED: HEPARIN 1,000 UNITS/ML 10ML VIAL (FOR RADIOLOGY& DIALYSIS ONLY) IV ONE (10:30)
--- NOTE | 2018-08-29 22:09 | CR ---
DATE OF CONSULTATION: 08/29/2018 NEPHROLOGY CONSULTATION FOR: Reno Palafox MD REASON FOR CONSULTATION: To assist in the management of end-stage renal disease. HISTORY OF PRESENT ILLNESS: Mrs. Perez is an 88-year-old frail lady with multiple chronic medical problems including history of end-stage renal disease, Ronald's granulomatosis, history of deep vein thrombosis (DVT), history of irritable bowel syndrome and congestive heart failure. She presented to the emergency room with generalized weakness following diarrhea and lower extremity edema. She had missed her dialysis treatment yesterday. She was admitted last evening by hospitalist service. Nephrology consultation was requested. I did discuss the case with the emergency room physician yesterday afternoon. PAST MEDICAL HISTORY: Significant for: 1. End-stage renal disease requiring maintenance hemodialysis. 2. Congestive heart failure. 3. Chronic hypotension. 4. History of DVT, on Eliquis. 5. History of anemia of end-stage renal disease. 6. History of chronic lower extremity edema. 7. History of irritable bowel syndrome. PAST SURGICAL HISTORY: Significant for: 1. Hysterectomy. 2. Appendectomy. PERSONAL AND SOCIAL HISTORY: The patient does not have any history of alcohol or tobacco use. FAMILY HISTORY: Negative for end-stage renal disease. ALLERGIES: She has multiple allergies including SULFA, TETRACYCLINE, CODEINE, CEFUROXIME, MORPHINE, FENOFIBRATE, MOXIFLOXACIN and CEPHALOSPORINS. MEDICATIONS: Her home medications include Eliquis 2.5 mg twice a day, aspirin 81 mg daily, vitamin D 1000 units daily, Megace 20 mg daily, midodrine 2.5 mg three times a day for chronic hypotension, mycophenolate 250 mg twice a day, prednisone 10 mg daily and Renvela 800 mg three times a day with meals. She also takes Zofran 4 mg as needed for nausea, ranitidine 150 mg as needed for indigestion and Percocet one tablet every 6 hours as needed for severe pain. REVIEW OF SYSTEMS: The patient is generally very weak and runs low blood pressure. She had her last dialysis on Tuesday and was supposed to come on Tuesday for an ultrafiltration; however, she could not make it. Tuesday morning she developed diarrhea and called the dialysis unit and reported that she could not come. She was very weak and short of breath on the phone. She was advised to go to the emergency room, which she did. A chest x-ray did show some pulmonary vascular congestion, and she had mild hyperkalemia. She was admitted yesterday. Ears, nose and throat are unremarkable. Cardiovascular system is significant for congestive heart failure and chronic hypotension. Respiratory system is negative for cough or hemoptysis. Gastrointestinal (GI) system is significant for diarrhea. She denies any vomiting or abdominal pain at present. Genitourinary () system is significant for a history of urinary tract infection (UTI). She denies any gross hematuria or dysuria at present. Endocrine system is negative for diabetes or thyroid problems. Hematological system is significant for prior history of DVT and anticoagulation. She has anemia of chronic kidney disease. Psychosocial system: Negative for depression or anxiety. Musculoskeletal system is significant for generalized weakness and difficulty with ambulation. She has chronic leg edema. Neurological system is negative for seizures or stroke. PHYSICAL EXAMINATION: Temperature 97 degrees Fahrenheit, heart rate 84 per minute and respiratory rate 20 per minute. Blood pressure is down to 90/50 mmHg during dialysis while earlier she was 132/58 mmHg. Head is atraumatic. Neck is supple without any jugular venous distention (JVD) or thyroid enlargement. She has no oral thrush or ulcers. Heart sounds are regular and systolic murmur grade 2/6 is audible. Lungs: Clear to auscultation. Abdomen: Soft and nontender. Bowel sounds are normal. There is no palpable organomegaly. Extremities: Without any cyanosis or clubbing. Neurologically she is at her baseline mentation. LABORATORY DATA: On admission her WBC count was 13.1, hemoglobin 9.1 and hematocrit 29.5. Platelets 212. Today her WBC count is 10.6, hemoglobin is down to 7.7 and hematocrit 25.7. Platelets 201. Sodium was 136 yesterday and potassium 5.4, while today sodium is 135 and potassium 5.3. BUN is 66 and creatinine 6.4. Calcium level 8.6. PROBLEMS: 1. End-stage renal disease. The patient is being dialyzed today while she missed her dialysis yesterday. She will complete her full treatment today. 2. Hyperkalemia. This is mild and related to end-stage renal disease. She does have history of chronic hyperkalemia as an outpatient. This will be corrected with dialysis today as she is being dialyzed with 2.0 mEq potassium bath. 3. Congestive heart failure and hypotension. She has been on midodrine 2.5 mg three times a day for chronic hypotension. Her volume status is chronically decompensated, and she does have leg edema. We are trying to remove about 2.5 liters of fluid as tolerated. 4. Anemia. She does have a significant drop in her hemoglobin and hematocrit compared to yesterday. There is no obvious blood loss. Her CBC should be checked again tomorrow. Thank you for involving me in the care of Mrs. Perez. I will follow her along with you. LISA
[2018-08-30] MEDS: PERCOCET 5MG/325MG TAB PO PRN ×4 (01:53→21:15)
[2018-08-30 04:00] VITALS: BP 129/58
[2018-08-30] MEDS: ASPIRIN 81 MG ENTERIC TAB PO SCH (06:21)
[2018-08-30 08:00] VITALS: BP 97/46
[2018-08-30] MEDS: (RENVELA) SEVELAMER **CARBONate** 800 MG TAB PO SCH ×3 (08:00→18:29)
[2018-08-30] MEDS: MIDODRINE 2.5 MG TAB PO SCH ×3 (08:00→18:29)
[2018-08-30 08:17] LABS: HEMATOCRIT 26.4 % (36.0-47.0); HEMOGLOBIN 7.9 g/dl (12.0-15.5); MEAN CORPUSCULAR HGB CONC 29.9 g/dl (32.0-36.5); MEAN CORPUSCULAR VOLUME 103.5 fl (80.0-96.0); PLATELET COUNT, AUTOMATED 119 10^3/uL (150-450); RED BLOOD COUNT 2.55 10^6/uL (4.00-5.40); WHITE BLOOD COUNT 10.7 10^3/uL (4.0-10.0)
[2018-08-30 08:44] LABS: ALBUMIN 2.9 GM/DL (3.2-5.2); CALCIUM LEVEL 8.3 MG/DL (8.8-10.2); CREATININE FOR GFR 4.38 MG/DL (0.55-1.30); GLOMERULAR FILTRATION RATE 10.2 (>32); PHOSPHORUS LEVEL 4.1 MG/DL (2.5-4.9)
[2018-08-30] MEDS ORDERED: LIDOCAINE 1% SDV 5 ML VIAL SQ ONE (10:30)
[2018-08-30] MEDS ORDERED: HEPARIN 1,000 UNITS/ML 10ML VIAL (FOR RADIOLOGY& DIALYSIS ONLY) IV ONE (10:30)
--- NOTE | 2018-08-30 11:55 | IPN ---
DATE OF VISIT: 08/30/2018 Ms. Perez is seen this morning on her bedside. She is being dialyzed this morning again. She was dialyzed yesterday. However, she did have a missed dialysis treatment on Tuesday. Today, is her regular dialysis day. She was hypotensive and only about 2 liters fluid was removed last time. She did drop her hematocrit yesterday with hemoglobin down to 7.7. This morning, her labs are repeated, and her hemoglobin is 7.9 and hematocrit 26.4. Her hyperkalemia has corrected, and potassium level is 4.0. Patient denies any new complaints. She has no dyspnea, chest pain, nausea, or vomiting. Her blood pressure is low, and weakness persists. PHYSICAL EXAMINATION: Temperature 96.8 degrees Fahrenheit, heart rate 85 per minute, and respiratory rate 18 per minute. Blood pressure 97/46 mmHg, and oxygen saturation 95% on room air. Head is atraumatic. Neck is supple, and jugular venous distention (JVD) is not abnormally elevated. Heart sounds are regular, and lungs with slightly diminished breath sounds at bases. Abdomen: Soft and nontender. Bowel sounds are normal. Extremities have no cyanosis or clubbing. Neurologically, she is at her baseline mentation. Today's labs show sodium 138, potassium 4.0, CO2 30, BUN 32, and creatinine 4.38. WBC count 10.7, hemoglobin 7.9, and hematocrit 26.4. PROBLEMS: 1. End-stage renal disease. Patient is being dialyzed today, which is her regular dialysis day today. She will be dialyzed for 3 hours. 2. Hypervolemia and leg edema. Her volume status seems slightly improved compared with yesterday. She still has some peripheral edema. Will try to remove as much fluid as much she could tolerate. 3. Anemia. Her anemia did get worse without any obvious blood loss. She is going to be transfused 2 units of packed RBCs during dialysis. Patient consented for transfusion. 4. Hyperkalemia. Her hyperkalemia has corrected, and she will be dialyzed with 3.0 mEq potassium bath today.
[2018-08-30 13:55] VITALS: BP 135/72
[2018-08-30] MEDS: MYCOPHENOLATE MOFETIL 250 MG CAP (J7517) PO SCH ×2 (14:14→21:14)
[2018-08-30] MEDS: VITAMIN D 1,000 INTERNATIONAL UNITS TABLET PO SCH (14:14)
[2018-08-30] MEDS: APIXABAN 2.5 MG TAB (ELIQUIS) PO SCH ×2 (14:14→21:14)
[2018-08-30] MEDS: predniSONE 10 MG TAB PO SCH (14:14)
[2018-08-30 16:00] VITALS: BP 102/55
[2018-08-30 19:27] VITALS: BP 119/58
--- NOTE | 2018-08-30 21:03 | IPNPDOC ---
Subjective Date Seen The patient was seen on 08/30/18. Subjective Chief Complaint/HPI Patient is comfortable lying in bed. Offers no new complaints at the present time General: Denies: ROS Unobtainable, Chills, Night Sweats, Fatigue, Malaise, Normal Appetite, Other Symptoms Constitutional: Denies: Chills, Fever, Malaise, Night Sweats, Weakness, Fatigue, Weight Loss, Lethargy, Other Eyes: Denies: Pain, Vision change, Conjunctivae inflammation, Eyelid inflammation, Redness, Other ENT: Denies: Head Aches, Ear Pain, Dysphagia, Sinus Congestion, Post Nasal Drip, Sore Throat, Epistaxis, Other Symptoms Skin: Denies: Rash, Lesions, Jaundice, Bruising, Itching, Dry, Breakdown, Nail Changes, Other Pulmonary: Denies: Dyspnea, Cough, Pleuritic Chest Pain, Other Symptoms Cardiovascular: Denies: Chest Pain, Palpitations, Orthopnea, Paroxysmal Noc. Dyspnea, Edema, Lt Headedness, Other Symptoms Gastrointestinal: Denies: Nausea, Vomiting, Abdominal Pain, Diarrhea, Constipation, Melena, Hematochezia, Other Symptoms Musculoskeletal: Denies: Neck Pain, Back Pain, Shoulder Pain, Arm Pain, Hand Pain, Leg Pain, Foot Pain, Joint Pain, Muscle Pain, Spasms, Other Symptoms Neurological: Denies: Weakness, Numbness, Incoordination, Change in speech, Confusion, Seizures, Other Symptoms Psych: Denies: Mood Normal, Anxiety, Depression, Memory Issues, Thoughts of Self Harm, Anger, Thoughts of Harming Other, Other Psych Objective Physical Examination General Exam: Positive: Alert, Cooperative Eye Exam: Positive: PERRLA, Conjunctiva & lids normal ENT Exam: Positive: Atraumatic Neck Exam: Positive: Supple Chest Exam: Positive: Clear to auscultation, Normal air movement Heart Exam: Positive: Rate Normal, Normal S1 Abdomen Exam: Positive: Normal bowel sounds, Soft Psych Exam: Positive: Mental status NL, Mood NL, Oriented x 3 Assessment /Plan Problems (1) End stage renal disease on dialysis Status: Chronic Problem Text: Patient had a hemodialysis session done today She gets dialyzed on Tuesday, Tuesday and Tuesday Leg edema and hypovolemia has improved very well with dialysis Patient also received 2 units of PRBC during dialysis Serum potassium also has been corrected H&H is stable Further recommendations as per nephrology Continue present medications and care Plan/VTE VTE Prophylaxis Ordered?: Yes VS, I&O, 24H, Fishbone Vital Signs/I&O Vital Signs Date Time Temp Pulse Resp B/P (MAP) Pulse Ox O2 Delivery O2 Flow Rate FiO2 08/30/18 19:27 97.3 89 18 119/58 (78) 94 08/28/18 21:30 Room Air I&O- Last 24 Hours up to 6 AM 08/30/18 06:00 Intake Total 240 ml Output Total 2000 ml Balance -1760 ml Laboratory Data 24H LABS Laboratory Tests 2 08/30/18 07:53: Nucleated Red Blood Cells % (auto) 0.0, Blood Urea Nitrogen 32#H, Creatinine 4.38H, Sodium Level 138, Potassium Level 4.0#, Chloride Level 97L, Carbon Dioxide Level 30, Anion Gap 11, Glomerular Filtration Rate 10.2L, Calcium Level 8.3L, Phosphorus Level 4.1, Albumin 2.9L CBC/BMP Laboratory Tests 08/30/18 07:53 Red Blood Count 2.55 L, Mean Corpuscular Volume 103.5 H, Mean Corpuscular Hemoglobin 31.0, Mean Corpuscular Hemoglobin Concent 29.9 L, Red Cell Distribution Width 17.4 H, Anion Gap 11 SALOME KU MD Aug 30, 2018 21:03
[2018-08-30 23:59] VITALS: BP 150/70
[2018-08-31 04:45] VITALS: BP 158/72
[2018-08-31] MEDS: PERCOCET 5MG/325MG TAB PO PRN ×2 (04:49→12:31)
[2018-08-31 05:43] LABS: HEMATOCRIT 34.2 % (36.0-47.0); MEAN CORPUSCULAR HEMOGLOBIN 29.2 pg (27.0-33.0); MEAN CORPUSCULAR VOLUME 94.2 fl (80.0-96.0); PLATELET COUNT, AUTOMATED 123 10^3/uL (150-450); RED BLOOD COUNT 3.63 10^6/uL (4.00-5.40); WHITE BLOOD COUNT 9.6 10^3/uL (4.0-10.0)
[2018-08-31 05:50] LABS: HEMOGLOBIN 10.6 g/dl (12.0-15.5)
[2018-08-31 06:00] LABS: CALCIUM LEVEL 8.4 MG/DL (8.8-10.2); CREATININE FOR GFR 2.99 MG/DL (0.55-1.30); GLOMERULAR FILTRATION RATE 15.8 (>32); POTASSIUM SERUM 4.3 MEQ/L (3.5-5.1)
[2018-08-31 08:00] VITALS: BP 140/71
[2018-08-31] MEDS: MIDODRINE 2.5 MG TAB PO SCH ×3 (08:47→16:56)
[2018-08-31] MEDS: MYCOPHENOLATE MOFETIL 250 MG CAP (J7517) PO SCH ×2 (08:47→20:01)
[2018-08-31] MEDS: APIXABAN 2.5 MG TAB (ELIQUIS) PO SCH ×2 (08:47→20:01)
[2018-08-31] MEDS: (RENVELA) SEVELAMER **CARBONate** 800 MG TAB PO SCH ×3 (08:47→16:56)
[2018-08-31] MEDS: VITAMIN D 1,000 INTERNATIONAL UNITS TABLET PO SCH (08:47)
[2018-08-31] MEDS: ASPIRIN 81 MG ENTERIC TAB PO SCH ×2 (08:47→08:50)
[2018-08-31] MEDS: predniSONE 10 MG TAB PO SCH (08:47)
--- NOTE | 2018-08-31 10:36 | IPNPDOC ---
Subjective Date Seen The patient was seen on 08/31/18. Subjective Chief Complaint/HPI Pt this morning reports that her breathing is much better, she is feeling well enough to go home. She reports taht since she has been here she hasn't been out of bed much. She lives at home with her . General: Reports: Fatigue Constitutional: Denies: Chills, Fever Pulmonary: Denies: Dyspnea, Cough Cardiovascular: Denies: Chest Pain, Palpitations Gastrointestinal: Denies: Nausea, Vomiting, Diarrhea Neurological: Denies: Weakness Psych: Reports: Mood Normal Objective Physical Examination General Exam: Positive: Alert, Cooperative ENT Exam: Positive: Atraumatic Neck Exam: Positive: Supple Chest Exam: Positive: Diminished (few bibasilar rales, more notable on the R than L); Negative: Clear to auscultation, Normal air movement Heart Exam: Positive: Rate Normal, Normal S1 Abdomen Exam: Positive: Normal bowel sounds, Soft; Negative: Tenderness Extremity Exam: Negative: Edema Psych Exam: Positive: Mental status NL, Mood NL, Oriented x 3 Assessment /Plan Problems (1) End stage renal disease on dialysis Status: Chronic Problem Text: 08/31 [facility] pt, care taken over today. She has been dialyzed twice since admition, 08/28 and 08/30. Her resp status has improved. Dialysis days MWF. Rec 2 units blood during dialysis yest with improvement in her Hgb, monitor. PT ordered today, DC home when safe. 08/30 Patient had a hemodialysis session done today She gets dialyzed on Tuesday, Tuesday and Tuesday Leg edema and hypovolemia has improved very well with dialysis Patient also received 2 units of PRBC during dialysis Serum potassium also has been corrected H&H is stable Further recommendations as per nephrology Continue present medications and care (2) Anemia in chronic kidney disease, on chronic dialysis Status: Chronic Response to Treatment: Stable, Improving Problem Specific Plan: Monitor Clinically, Repeat Labs Problem Text: Pt rec 2 units pRBCs 08/30, monitor Hgb. (3) Pulmonary fibrosis Status: Chronic Response to Treatment: Stable Problem Specific Plan: Monitor Clinically (Con) Problem Text: Stable on HD pred 10 QD (4) Diastolic congestive heart failure Status: Acute Problem Text: Improved WALTER/hypoxia c increased volume reduction via HD 08/2017 TTE: 1. Normal global left ventricular systolic function. There are features of left ventricular diastolic dysfunction manifested by abnormal relaxation. 2. Aortic valve sclerosis with no aortic regurgitation, but trivial aortic stenosis. 3. Mitral annulus calcification with mild mitral regurgitation. 4. Moderate tricuspid regurgitation with moderate to severe pulmonary hypertension. 5. Trace pericardial effusion noted, no evidence of cardiac tamponade. DD: KIKO GARCIA MD 09/10/17 [id number] (5) Physical deconditioning Status: Chronic Problem Text: 08/31 PT consult P Plan/VTE VTE Prophylaxis Ordered?: Yes VS, I&O, 24H, Fishbone Vital Signs/I&O Vital Signs Date Time Temp Pulse Resp B/P (MAP) Pulse Ox O2 Delivery O2 Flow Rate FiO2 08/31/18 08:00 140/71 (94) 08/31/18 05:49 16 08/31/18 04:45 98.7 77 92 08/28/18 21:30 Room Air I&O- Last 24 Hours up to 6 AM 08/31/18 06:00 Intake Total 150 ml Output Total 2650 ml Balance -2500 ml Laboratory Data 24H LABS Laboratory Tests 2 08/31/18 05:18: Nucleated Red Blood Cells % (auto) 0.0, Anion Gap 8, Glomerular Filtration Rate 15.8L, Blood Urea Nitrogen 22H, Creatinine 2.99H, Sodium Level 139, Potassium Level 4.3, Chloride Level 100, Carbon Dioxide Level 31, Calcium Level 8.4L CBC/BMP Laboratory Tests 08/31/18 05:18 Red Blood Count 3.63 L, Mean Corpuscular Volume 94.2, Mean Corpuscular Hemoglobin 29.2, Mean Corpuscular Hemoglobin Concent 31.0 L, Red Cell Distribution Width 20.9 H, Calcium Level 8.4 L BEVERLEY GIBBONS PA-C Aug 31, 2018 10:36 Jarde Luque M.D. Aug 31, 2018 17:32
--- NOTE | 2018-08-31 11:39 | IPN ---
DATE: 08/31/2018 Mrs. Ellsworth is seen this morning on her bedside. She is sitting in her bed with head end elevated and reports feeling much better. She was transfused and her weakness has improved. She denies any nausea or vomiting. She does get some shortness of breath when she tries to move. PHYSICAL EXAMINATION: Temperature 98.7 degrees Fahrenheit, heart rate 76 per minute and respiratory rate 16 per minute. Blood pressure 140/70 mmHg and oxygen saturation 92% on room air. Head is atraumatic. Neck is supple and jugular venous distention (JVD) is minimally elevated. She has no oral thrush or ulcers. Heart sounds are irregular in rhythm and a systolic murmur grade 2/6 is audible. Lungs with scattered crepitations bilaterally. Abdomen is soft and nontender and bowel sounds are normal. Extremities have no cyanosis or clubbing. Neurologically, she is awake, alert and at her baseline mentation. Today's laboratories show WBC count 9.6, hemoglobin 10.6 and hematocrit 34.2. Platelets 143. Sodium 139, potassium 4.3, CO2 of 31, BUN 22 and creatinine 2.99. PROBLEMS: 1. End-stage renal disease. The patient was dialyzed yesterday and next dialysis is be scheduled for tomorrow, which is her regular day. 2. Congestive heart failure. She clinically looks well compensated and has been dialyzed twice since admission. We remove about 2 to 2.5 liters fluid with each dialysis. She will be dialyzed again tomorrow for further fluid removal. 3. Anemia. Her anemia improved following transfusion. No other urgent intervention is indicated. 4. Hyperkalemia. Her potassium level was mildly elevated on admission, which has improved and remained stable since then. 5. Generalized weakness and deconditioning. She is probably at about her baseline. She wants to go home today. I will defer to her primary care team.
[2018-08-31 12:00] VITALS: BP 109/72
[2018-08-31 14:35] VITALS: BP 152/70
[2018-09-01] MEDS: ONDANSETRON 4 MG ORAL DISINTEGRATING TAB (Q0162 PER 1MG) PO PRN ×3 (01:46→17:07)
[2018-09-01] MEDS: PERCOCET 5MG/325MG TAB PO PRN ×5 (01:47→23:32)
[2018-09-01] MEDS: VITAMIN D 1,000 INTERNATIONAL UNITS TABLET PO SCH (05:50)
[2018-09-01] MEDS: MYCOPHENOLATE MOFETIL 250 MG CAP (J7517) PO SCH ×2 (05:50→20:11)
[2018-09-01] MEDS: ASPIRIN 81 MG ENTERIC TAB PO SCH (05:50)
[2018-09-01] MEDS: predniSONE 10 MG TAB PO SCH (05:50)
[2018-09-01] MEDS: APIXABAN 2.5 MG TAB (ELIQUIS) PO SCH ×2 (05:50→20:11)
[2018-09-01] MEDS: MIDODRINE 2.5 MG TAB PO SCH ×3 (05:51→17:08)
[2018-09-01] MEDS: (RENVELA) SEVELAMER **CARBONate** 800 MG TAB PO SCH ×3 (05:51→17:08)
[2018-09-01 05:55] LABS: BASO % 0.4 % (0.0-1.0); EOS # 0.1 10^3/uL (0.0-0.50); EOS % 1.3 % (0.0-3.0); HEMATOCRIT 35.6 % (36.0-47.0); LYMPH # 0.9 10^3/uL (1.5-4.5); LYMPH % 8.2 % (24.0-44.0); MEAN CORPUSCULAR HEMOGLOBIN 29.7 pg (27.0-33.0); MEAN CORPUSCULAR HGB CONC 30.9 g/dl (32.0-36.5); MEAN CORPUSCULAR VOLUME 96.2 fl (80.0-96.0); MONO # 0.7 10^3/uL (0.0-0.8); MONO % 6.6 % (0.0-5.0); NEUTROPHILS # 8.7 10^3/uL (1.8-7.7); NEUTROPHILS % 81.9 % (36.0-66.0); PLATELET COUNT, AUTOMATED 146 10^3/uL (150-450); WHITE BLOOD COUNT 10.6 10^3/uL (4.0-10.0)
[2018-09-01 06:16] LABS: ALBUMIN 3.2 GM/DL (3.2-5.2); CALCIUM LEVEL 8.4 MG/DL (8.8-10.2); CREATININE FOR GFR 4.19 MG/DL (0.55-1.30); GLOMERULAR FILTRATION RATE 10.7 (>32); PHOSPHORUS LEVEL 3.5 MG/DL (2.5-4.9); POTASSIUM SERUM 4.3 MEQ/L (3.5-5.1)
--- NOTE | 2018-09-01 09:36 | IPNPDOC ---
Subjective Date Seen The patient was seen on 09/01/18. Subjective Chief Complaint/HPI Pt this morning state that her chronic back pain is bothering her. She has just taken something for pain and is hopeful that it will alleviate her symptoms soon. She is scheduled for dialysis today. General: Denies: Fatigue Constitutional: Denies: Chills, Fever Pulmonary: Denies: Dyspnea, Cough Cardiovascular: Denies: Chest Pain, Palpitations Gastrointestinal: Denies: Nausea, Vomiting, Diarrhea Neurological: Denies: Weakness Psych: Reports: Mood Normal Objective Physical Examination General Exam: Positive: Alert, Cooperative Neck Exam: Positive: Supple Chest Exam: Positive: Diminished (few bibasilar rales, more notable on the R than L); Negative: Clear to auscultation, Normal air movement Heart Exam: Positive: Rate Normal, Normal S1 Abdomen Exam: Positive: Normal bowel sounds, Soft; Negative: Tenderness Extremity Exam: Positive: Edema (trace BLE) Psych Exam: Positive: Mental status NL, Mood NL, Oriented x 3 Assessment /Plan Problems (1) End stage renal disease on dialysis Status: Chronic Problem Text: 09/01 Plans for Dialysis today, resp status has improved. Cont with PT. 08/31 [facility] pt, care taken over today. She has been dialyzed twice since admition, 08/28 and 08/30. Her resp status has improved. Dialysis days MWF. Rec 2 units blood during dialysis yest with improvement in her Hgb, monitor. PT ordered today, DC home when safe. 08/30 Patient had a hemodialysis session done today She gets dialyzed on Tuesday, Tuesday and Tuesday Leg edema and hypovolemia has improved very well with dialysis Patient also received 2 units of PRBC during dialysis Serum potassium also has been corrected H&H is stable Further recommendations as per nephrology Continue present medications and care (2) Anemia in chronic kidney disease, on chronic dialysis Status: Chronic Response to Treatment: Stable, Improving Problem Specific Plan: Monitor Clinically, Repeat Labs Problem Text: Pt rec 2 units pRBCs 08/30, monitor Hgb. (3) Pulmonary fibrosis Status: Chronic Response to Treatment: Stable Problem Specific Plan: Monitor Clinically (Con) Problem Text: Stable on HD pred 10 QD (4) Diastolic congestive heart failure Status: Acute Problem Text: Improved WALTER/hypoxia c increased volume reduction via HD 08/2017 TTE: 1. Normal global left ventricular systolic function. There are features of left ventricular diastolic dysfunction manifested by abnormal relaxation. 2. Aortic valve sclerosis with no aortic regurgitation, but trivial aortic stenosis. 3. Mitral annulus calcification with mild mitral regurgitation. 4. Moderate tricuspid regurgitation with moderate to severe pulmonary hypertension. 5. Trace pericardial effusion noted, no evidence of cardiac tamponade. DD: KIKO GARCIA MD 09/10/17 2177 (5) Physical deconditioning Status: Chronic Problem Text: 08/31 PT consult P Plan/VTE VTE Prophylaxis Ordered?: Yes VS, I&O, 24H, Fishbone Vital Signs/I&O Vital Signs Date Time Temp Pulse Resp B/P (MAP) Pulse Ox O2 Delivery O2 Flow Rate FiO2 09/01/18 07:50 16 08/31/18 21:18 97.1 81 96 08/31/18 14:35 152/70 (97) 08/28/18 21:30 Room Air I&O- Last 24 Hours up to 6 AM 09/01/18 06:00 Intake Total 1440 ml Output Total 0 ml Balance 1440 ml Laboratory Data 24H LABS Laboratory Tests 2 09/01/18 05:33: Immature Granulocyte % (Auto) 1.6, White Blood Count 10.6H, Red Blood Count 3.70L, Hemoglobin 11.0L, Hematocrit 35.6L, Mean Corpuscular Volume 96.2H, Mean Corpuscular Hemoglobin 29.7, Mean Corpuscular Hemoglobin Concent 30.9L, Red Cell Distribution Width 20.1H, Platelet Count 146L, Neutrophils (%) (Auto) 81.9H, Lymphocytes (%) (Auto) 8.2L, Monocytes (%) (Auto) 6.6H, Eosinophils (%) (Auto) 1.3, Basophils (%) (Auto) 0.4, Neutrophils # (Auto) 8.7H, Lymphocytes # (Auto) 0.9L, Monocytes # (Auto) 0.7, Eosinophils # (Auto) 0.1, Basophils # (Auto) 0.0, Nucleated Red Blood Cells % (auto) 0.0, Blood Urea Nitrogen 39#H, Creatinine 4.19H, Sodium Level 137, Potassium Level 4.3, Chloride Level 98, Carbon Dioxide Level 30, Anion Gap 9, Glomerular Filtration Rate 10.7L, Calcium Level 8.4L, Ph osphorus Level 3.5, Albumin 3.2 CBC/BMP Laboratory Tests 09/01/18 05:33 Red Blood Count 3.70 L, Mean Corpuscular Volume 96.2 H, Mean Corpuscular Hemoglobin 29.7, Mean Corpuscular Hemoglobin Concent 30.9 L, Red Cell Distribution Width 20.1 H, Neutrophils (%) (Auto) 81.9 H, Lymphocytes (%) (Auto) 8.2 L, Monocytes (%) (Auto) 6.6 H, Eosinophils (%) (Auto) 1.3, Basophils (%) (Auto) 0.4, Neutrophils # (Auto) 8.7 H, Lymphocytes # (Auto) 0.9 L, Monocytes # (Auto) 0.7, Eosinophils # (Auto) 0.1, Basophils # (Auto) 0.0, Anion Gap 9 BEVERLEY GIBBONS PA-C Sep 01, 2018 09:36
[2018-09-01] MEDS ORDERED: HEPARIN 1,000 UNITS/ML 10ML VIAL (FOR RADIOLOGY& DIALYSIS ONLY) IV ONE (11:00)
[2018-09-01] MEDS ORDERED: LIDOCAINE 1% SDV 5 ML VIAL SQ ONE (11:00)
--- NOTE | 2018-09-01 13:12 | IPN ---
DATE: 09/01/2018 Mrs. Perez is seen this morning on her bedside. She has complained of pain in her back. She has severe kyphoscoliosis and possible osteoporotic fracture. She has been getting half a tablet of Percocet every 6 hours, but the patient feels that it does not hold for 6 hours and she needs to get pain medication every 4 hours. The patient denies any dyspnea or chest pain. On physical examination, temperature 97 degrees Fahrenheit, heart rate 80 per minute and respiratory rate 16 per minute. Blood pressure 152/70 mmHg and oxygen saturation is 96% on room air. Head is atraumatic. Neck is supple and without any jugular venous distention (JVD) or thyroid enlargement. Heart sounds are irregular in rhythm. Lungs with a few basilar crepitations. She has severe kyphoscoliosis. Abdomen: Soft and nontender. Bowel sounds are normal. Extremities: Without any cyanosis or clubbing. Neurologically, she is at her baseline mentation without a focal deficit. Today's labs show WBC count 10.6, hemoglobin 11.0 and hematocrit 35.6. Platelets 146. Sodium 137, potassium 4.3, CO2 30, BUN 39 and creatinine 4.19. Calcium 8.4 and phosphorus 3.5. Albumin is 3.2. PROBLEMS: 1. End-stage renal disease. The patient is regularly dialyzed on Tuesday, Tuesday and Tuesday schedule. She will be dialyzed this afternoon. 2. Congestive heart failure. Volume status seems reasonably well-compensated after two dialysis treatments and fluid removal. We will try to remove another 1-1.5 liters of fluid as tolerated. 3. Anemia. Her anemia is stable and does not need any urgent intervention. 4. Back pain. The patient has been on Percocet and I will defer to primary care team to manage her analgesics.
[2018-09-01 16:59] VITALS: BP 154/84
[2018-09-01 22:00] VITALS: BP 134/64
[2018-09-02] MEDS: PERCOCET 5MG/325MG TAB PO PRN (05:57)
[2018-09-02 06:00] VITALS: BP 141/67
[2018-09-02] MEDS: predniSONE 10 MG TAB PO SCH (08:58)
[2018-09-02] MEDS: APIXABAN 2.5 MG TAB (ELIQUIS) PO SCH ×2 (08:59→20:42)
[2018-09-02] MEDS: MYCOPHENOLATE MOFETIL 250 MG CAP (J7517) PO SCH ×2 (08:59→20:42)
[2018-09-02] MEDS: (RENVELA) SEVELAMER **CARBONate** 800 MG TAB PO SCH ×3 (08:59→17:03)
[2018-09-02] MEDS: MIDODRINE 2.5 MG TAB PO SCH ×3 (08:59→17:03)
[2018-09-02] MEDS: ASPIRIN 81 MG ENTERIC TAB PO SCH (09:00)
[2018-09-02] MEDS: VITAMIN D 1,000 INTERNATIONAL UNITS TABLET PO SCH (09:00)
[2018-09-02 10:00] VITALS: BP 115/53
--- NOTE | 2018-09-02 12:58 | IPNPDOC ---
Subjective Date Seen The patient was seen on 09/02/18. Subjective Chief Complaint/HPI back pain. anticipates going home tomorrow. lives at home, not at [facility] ENT: Denies: Head Aches Pulmonary: Denies: Dyspnea, Cough Cardiovascular: Denies: Chest Pain Gastrointestinal: Denies: Nausea, Vomiting Hematologic: Denies: Bruising Musculoskeletal: Reports: Back Pain (lower thoracic. years, a little worse recently current med works ok but only for 3 hours.) Neurological: Denies: Weakness Psych: Reports: Mood Normal Objective Physical Examination General Exam: Positive: Alert, Cooperative Neck Exam: Positive: Supple Chest Exam: Positive: Rales (bibasilar), Diminished (few bibasilar rales, more notable on the R than L); Negative: Clear to auscultation, Normal air movement Heart Exam: Positive: Rate Normal, Normal S1 Abdomen Exam: Positive: Normal bowel sounds, Soft; Negative: Tenderness Extremity Exam: Positive: Edema (trace BLE) Psych Exam: Positive: Mental status NL, Mood NL, Oriented x 3 Assessment /Plan Problems (1) End stage renal disease on dialysis Status: Chronic Problem Text: 09/02: dialysis again today. possible home tomorrow. usual dialysis days are MWF 09/01 Plans for Dialysis today, resp status has improved. Cont with PT. 08/31 [facility] pt, care taken over today. She has been dialyzed twice since admition, 08/28 and 08/30. Her resp status has improved. Dialysis days MWF. Rec 2 units blood during dialysis yest with improvement in her Hgb, monitor. PT ordered today, DC home when safe. 08/30 Patient had a hemodialysis session done today She gets dialyzed on Tuesday, Tuesday and Tuesday Leg edema and hypovolemia has improved very well with dialysis Patient also received 2 units of PRBC during dialysis Serum potassium also has been corrected H&H is stable Further recommendations as per nephrology Continue present medications and care (2) Anemia in chronic kidney disease, on chronic dialysis Status: Chronic Response to Treatment: Stable, Improving Problem Specific Plan: Monitor Clinically, Repeat Labs Problem Text: Pt rec 2 units pRBCs 08/30, monitor Hgb. (3) Pulmonary fibrosis Status: Chronic Response to Treatment: Stable Problem Specific Plan: Monitor Clinically (Con) Problem Text: Stable on HD pred 10 QD (4) Diastolic congestive heart failure Status: Acute Problem Text: Improved WALTER/hypoxia c increased volume reduction via HD 08/2017 TTE: 1. Normal global left ventricular systolic function. There are features of left ventricular diastolic dysfunction manifested by abnormal relaxation. 2. Aortic valve sclerosis with no aortic regurgitation, but trivial aortic stenosis. 3. Mitral annulus calcification with mild mitral regurgitation. 4. Moderate tricuspid regurgitation with moderate to severe pulmonary hypertension. 5. Trace pericardial effusion noted, no evidence of cardiac tamponade. DD: KIKO GARCIA MD 09/10/17 1317 (5) Physical deconditioning Status: Chronic Problem Text: 08/31 PT consult P (6) Back pain Status: Chronic Response to Treatment: Worse Problem Text: older cxr shows compression fractures in thoracic levels. also seen on CXR from this admission but not mentioned by radiology. inadequate pain control with current med. will try shift to hydrocodone 5/325 apap. on same schedule. Plan/VTE VTE Prophylaxis Ordered?: Yes VS, I&O, 24H, Fishbone Vital Signs/I&O Vital Signs Date Time Temp Pulse Resp B/P (MAP) Pulse Ox O2 Delivery O2 Flow Rate FiO2 09/02/18 10:00 97.8 90 18 115/53 (73) 91 08/28/18 21:30 Room Air I&O- Last 24 Hours up to 6 AM 09/02/18 06:00 Intake Total 1020 ml Output Total 1500 ml Balance -480 ml Viraj Quevedo MD Sep 02, 2018 12:58
[2018-09-02] MEDS ORDERED: NORCO, ANEXSIA 5/325MG TABLET (HYDROcodone/ACETAMINOPHEN) PO PRN (13:00)
[2018-09-02] MEDS: ACETAMINOPHEN TAB 650MG DOSE (2X325MG) PO PRN ×2 (13:03→23:14)
[2018-09-02 17:00] VITALS: BP 142/73
[2018-09-02] MEDS: ONDANSETRON 4 MG ORAL DISINTEGRATING TAB (Q0162 PER 1MG) PO PRN (17:03)
[2018-09-02 22:00] VITALS: BP 145/73
[2018-09-03 02:00] VITALS: BP 139/70
[2018-09-03] MEDS: ONDANSETRON 4 MG ORAL DISINTEGRATING TAB (Q0162 PER 1MG) PO PRN (03:51)
[2018-09-03] MEDS: ACETAMINOPHEN TAB 650MG DOSE (2X325MG) PO PRN ×4 (03:51→20:43)
[2018-09-03 06:00] VITALS: BP 134/64
[2018-09-03] MEDS: APIXABAN 2.5 MG TAB (ELIQUIS) PO SCH ×2 (08:31→20:42)
[2018-09-03] MEDS: VITAMIN D 1,000 INTERNATIONAL UNITS TABLET PO SCH (08:32)
[2018-09-03] MEDS: ASPIRIN 81 MG ENTERIC TAB PO SCH (08:32)
[2018-09-03] MEDS: predniSONE 10 MG TAB PO SCH (08:32)
[2018-09-03] MEDS: (RENVELA) SEVELAMER **CARBONate** 800 MG TAB PO SCH ×3 (08:32→17:53)
[2018-09-03] MEDS: MIDODRINE 2.5 MG TAB PO SCH ×2 (08:32→14:25)
[2018-09-03] MEDS: MYCOPHENOLATE MOFETIL 250 MG CAP (J7517) PO SCH ×2 (08:32→20:42)
[2018-09-03 10:00] VITALS: BP 135/65
[2018-09-03 14:00] VITALS: BP 147/71
[2018-09-03] MEDS ORDERED: MIRALAX *UNIT DOSE* 17GM PACKET PO PRN (16:15)
[2018-09-03] MEDS ORDERED: SENOKOT S TAB PO PRN (16:15)
[2018-09-03] MEDS ORDERED: BISACODYL 10 MG SUPP PR PRN (16:15)
--- NOTE | 2018-09-03 16:21 | IPNPDOC ---
Subjective Date Seen The patient was seen on 09/03/18. Subjective Chief Complaint/HPI Dr Peña wants to keep me until tuesday Constitutional: Reports: Fatigue; Denies: Chills ENT: Denies: Head Aches Pulmonary: Denies: Dyspnea, Cough Cardiovascular: Denies: Chest Pain, Palpitations Gastrointestinal: Denies: Nausea, Vomiting Hematologic: Denies: Bruising Neurological: Reports: Weakness Psych: Reports: Mood Normal Objective Physical Examination General Exam: Positive: Alert, Cooperative Neck Exam: Positive: Supple Chest Exam: Positive: Rales (bibasilar unchanged from yesterday.), Diminished (few bibasilar rales, more notable on the R than L); Negative: Clear to auscultation, Normal air movement Heart Exam: Positive: Rate Normal, Normal S1 Abdomen Exam: Positive: Normal bowel sounds, Soft; Negative: Tenderness Extremity Exam: Positive: Edema (pedal edema is noted.) Skin Exam: Negative: Rash Psych Exam: Positive: Mental status NL, Mood NL, Oriented x 3 Assessment /Plan Problems (1) End stage renal disease on dialysis Status: Chronic Problem Text: 09/02: dialysis again today. possible home tomorrow. usual di alysis days are MWF 09/01 Plans for Dialysis today, resp status has improved. Cont with PT. 08/31 [facility] pt, care taken over today. She has been dialyzed twice since admition, 08/28 and 08/30. Her resp status has improved. Dialysis days MWF. Rec 2 units blood during dialysis yest with improvement in her Hgb, monitor. PT ordered today, DC home when safe. 08/30 Patient had a hemodialysis session done today She gets dialyzed on Tuesday, Tuesday and Tuesday Leg edema and hypovolemia has improved very well with dialysis Patient also received 2 units of PRBC during dialysis Serum potassium also has been corrected H&H is stable Further recommendations as per nephrology Continue present medications and care (2) Anemia in chronic kidney disease, on chronic dialysis Status: Chronic Response to Treatment: Stable, Improving Problem Specific Plan: Monitor Clinically, Repeat Labs Problem Text: Pt rec 2 units pRBCs 08/30, monitor Hgb. (3) Pulmonary fibrosis Status: Chronic Response to Treatment: Stable Problem Specific Plan: Monitor Clinically (Con) Problem Text: Stable on HD pred 10 QD. Curiously patient professes no awareness of this dx. (4) Diastolic congestive heart failure Status: Acute Problem Text: Improved WALTER/hypoxia c increased volume reduction via HD 08/2017 TTE: 1. Normal global left ventricular systolic function. There are features of l eft ventricular diastolic dysfunction manifested by abnormal relaxation. 2. Aortic valve sclerosis with no aortic regurgitation, but trivial aortic stenosis. 3. Mitral annulus calcification with mild mitral regurgitation. 4. Moderate tricuspid regurgitation with moderate to severe pulmonary hypertension. 5. Trace pericardial effusion noted, no evidence of cardiac tamponade. DD: KIKO GARCIA MD 09/10/17 1317 (5) Physical deconditioning Status: Chronic Problem Text: 08/31 PT consult P (6) Back pain Status: Chronic Response to Treatment: Worse Problem Text: older cxr shows compression fractures in thoracic levels. also seen on CXR from this admission but not mentioned by radiology. inadequate pain control with current med. will try shift to hydrocodone 5/325 apap. on same schedule. (7) Pulmonary hypertension associated with ESRD on dialysis Status: Chronic Response to Treatment: Stable Problem Text: Echo 08/2017 demonstrated moderate to sever pulmonary hypertension with tricuspid regurg. Plan/VTE VTE Prophylaxis Ordered?: Yes VS, I&O, 24H, Fishbone Vital Signs/I&O Vital Signs Date Time Temp Pulse Resp B/P (MAP) Pulse Ox O2 Delivery O2 Flow Rate FiO2 09/03/18 14:00 98.0 90 19 147/71 (96) 93 08/28/18 21:30 Room Air I&O- Last 24 Hours up to 6 AM 09/03/18 06:00 Intake Total 780 ml Output Total 2000 ml Balance -1220 ml Viraj Quevedo MD Sep 03, 2018 16:21
--- NOTE | 2018-09-03 17:02 | IPN ---
DATE: 09/02/2018 SUBJECTIVE: Patient was seen and examined the bedside today morning. She is afebrile, hemodynamically stable. Patient reports that she was dialyzed three days in a row. Her shortness of breath is improving. She still reports some lower extremity edema. She is unable to lay flat because of pain in her back. She was dialyzed yesterday and 1.5 liters of fluid was removed. OBJECTIVE: VITAL SIGNS: Temperature is 97.8 degrees Fahrenheit, blood pressure 115/53, pulse is 90, respiratory of 18, saturating 91% on room air. INTAKE AND OUTPUT: There is no urine output recorded. Ultrafiltration with hemodialysis was 1.5 liters. Weight in the bed scale is not available. PHYSICAL EXAMINATION: GENERAL: Patient is awake, alert, oriented times three, sitting up in the bed. No apparent distress. HEAD AND NECK EXAM: Extraocular muscles intact. Pupils equally round and reactive to light. Mucous membranes are moist. Neck is supple. There is mildly elevated jugular venous distention (JVD). CARDIOVASCULAR: S1, S2. 2+ edema of the bilateral lower extremities. RESPIRATORY: Kyphosis was noted. She has mild crepitations at both bases on deep inspiration. ABDOMEN: Soft. Positive bowel sounds. Nontender. No organomegaly. MUSCULOSKELETAL: 2+ edema of the bilateral lower extremities. Right upper extremity has atrioventricular (AV) graft. CENTRAL NERVOUS SYSTEM (WHEEL [employer]ER): No focal deficit. Power is 5/5 in all extremities. PSYCHIATRIC: Normal mood and affect. LABORATORY REVIEW: Complete blood count (CBC) showed a WBC of 10.6, hemoglobin is 11, platelets of 146. Basic metabolic panel (BMP) was done yesterday, which showed a potassium of 4.3 and a creatinine of 4.1. CURRENT INPATIENT MEDICATIONS: Patient's medications were all reviewed by me. Oxycodone has been stopped now and no other change in the medications today as compared with yesterday. ASSESSMENT/PLAN: 1. Acute decompensated diastolic congestive heart failure. Patient is still slightly fluid overloaded. I have decided to do an extra session of ultrafiltration. I would remove at least 2 liters of fluid with the ultrafiltration today. 2. Anemia in end-stage renal disease. Hemoglobin is 11 on the latest lab, which is optimal. Patient is currently not on erythropoiesis stimulating agent (MARILYN).
[2018-09-03] MEDS: MIDODRINE 5 MG TAB PO SCH (17:53)
[2018-09-03 22:00] VITALS: BP 140/70
[2018-09-04] MEDS: ACETAMINOPHEN TAB 650MG DOSE (2X325MG) PO PRN ×3 (00:46→12:50)
[2018-09-04] MEDS: ONDANSETRON 4 MG ORAL DISINTEGRATING TAB (Q0162 PER 1MG) PO PRN ×2 (00:50→12:54)
[2018-09-04 02:00] VITALS: BP 134/70
[2018-09-04] MEDS: ASPIRIN 81 MG ENTERIC TAB PO SCH (05:13)
[2018-09-04] MEDS: (RENVELA) SEVELAMER **CARBONate** 800 MG TAB PO SCH ×3 (05:13→18:00)
[2018-09-04] MEDS: MIDODRINE 5 MG TAB PO SCH ×3 (05:13→18:00)
[2018-09-04] MEDS: predniSONE 10 MG TAB PO SCH (05:13)
[2018-09-04] MEDS: VITAMIN D 1,000 INTERNATIONAL UNITS TABLET PO SCH (05:13)
[2018-09-04] MEDS: MYCOPHENOLATE MOFETIL 250 MG CAP (J7517) PO SCH ×2 (05:13→20:07)
[2018-09-04] MEDS: APIXABAN 2.5 MG TAB (ELIQUIS) PO SCH ×2 (05:13→20:07)
[2018-09-04 06:00] VITALS: BP 132/77
[2018-09-04 06:16] LABS: BASO % 0.3 % (0.0-1.0); EOS # 0.1 10^3/uL (0.0-0.50); EOS % 1.6 % (0.0-3.0); HEMATOCRIT 34.6 % (36.0-47.0); HEMOGLOBIN 10.8 g/dl (12.0-15.5); LYMPH % 11.1 % (24.0-44.0); MEAN CORPUSCULAR HEMOGLOBIN 29.3 pg (27.0-33.0); MEAN CORPUSCULAR HGB CONC 31.2 g/dl (32.0-36.5); MONO # 0.8 10^3/uL (0.0-0.8); MONO % 8.8 % (0.0-5.0); NEUTROPHILS # 6.6 10^3/uL (1.8-7.7); NEUTROPHILS % 75.1 % (36.0-66.0); PLATELET COUNT, AUTOMATED 103 10^3/uL (150-450); RED BLOOD COUNT 3.68 10^6/uL (4.00-5.40); WHITE BLOOD COUNT 8.8 10^3/uL (4.0-10.0)
[2018-09-04 06:27] LABS: CALCIUM LEVEL 8.3 MG/DL (8.8-10.2); CREATININE FOR GFR 5.91 MG/DL (0.55-1.30); GLOMERULAR FILTRATION RATE 7.2 (>32); PHOSPHORUS LEVEL 3.4 MG/DL (2.5-4.9); POTASSIUM SERUM 5.4 MEQ/L (3.5-5.1)
--- NOTE | 2018-09-04 07:51 | REP ---
CHEST, TWO VIEWS: Two views of the chest are performed and compared to prior study of 08/28/2018. There is no change since the prior exam. There is bilateral fibrotic change which is stable. There is a calcified granuloma again seen in the left upper lobe. There is poor ventilation with elevation of the left hemidiaphragm. There is calcification of the thoracic aorta. Patient's chin overlies the medial lung apices. IMPRESSION: Stable chronic changes. Electronically Signed by Abdullahi Lawton MD 09/04/2018 08:41 A
[2018-09-04 10:00] VITALS: BP 143/68
--- NOTE | 2018-09-04 10:14 | IPN ---
DATE: 09/03/2018 SUBJECTIVE: The patient was seen and examined at the bedside today morning. She is afebrile, hemodynamically stable. She got ultrafiltration done yesterday 2 liters of fluid was removed. She reports shortness of breath is improving now. She denies any other active complaints. OBJECTIVE: VITAL SIGNS: Temperature is 98. Blood pressure 147/71, pulse is 90, respiratory of 19, saturating 93% on room air. Intake and output: Ultrafiltration with hemodialysis was 2 liters yesterday. Weight in the bed scale is not available. PHYSICAL EXAMINATION: GENERAL: The patient is awake, alert, oriented times three sitting up in the bed in no apparent distress. Head and neck exam: Extraocular muscles intact. Pupils equally round and reactive to light. Mucous membranes are moist. Neck is supple. There is mildly elevated jugular venous distention (JVD). CARDIOVASCULAR: The patient had grade 3/6 systolic ejection murmur, 1+ edema of the bilateral lower extremities. RESPIRATORY: Mildly decreased breath sounds at the bases and mild crepitations on deep inspiration bilaterally at the bases. ABDOMEN: Soft. Positive bowel sounds. Nontender. No organomegaly. MUSCULOSKELETAL: No clubbing or cyanosis. 1+ edema of the bilateral lower extremities. CENTRAL NERVOUS SYSTEM: No focal deficit. Power is 5/5 in all extremities. LAB REVIEW: CBC showed WBC 10.6, hemoglobin is 11, platelets are 146. BMP showed sodium 137, potassium 4.3, chloride 98, bicarb 30, BUN 39, creatinine 4.1, calcium 8.45, phosphorus 3.5, albumin is 3.2. CURRENT INPATIENT MEDICATIONS: The patient's medications were all reviewed by me. There is no change in the medications today as compared with yesterday. ASSESSMENT/PLAN: 1. End-stage renal disease on hemodialysis. The patient's regular dialysis days are Tuesday, Tuesday, Tuesday. She got an extra session of dialysis yesterday, 2 liters of fluid was removed. Volume status is optimal. Next dialysis will be on Tuesday, tomorrow morning, as per her regular schedule. 2. Anemia on end-stage renal disease: The patient's hemoglobin is 11 which is optimal. No need of Aranesp administration at this point. 3. Congestive heart failure: The patient's volume status is better now. She got an extra session of ultrafiltration done yesterday. Further optimization of fluid status will be done with dialysis tomorrow morning.
[2018-09-04] MEDS ORDERED: HEPARIN 1,000 UNITS/ML 10ML VIAL (FOR RADIOLOGY& DIALYSIS ONLY) IV ONE (10:15)
--- NOTE | 2018-09-04 11:04 | IPNPDOC ---
Subjective Date Seen The patient was seen on 09/04/18. Subjective Chief Complaint/HPI SOB Events since last encounter Denies c/o. Continues to progress with PT. Anticipates DC home in am. Pulmonary: Denies: Dyspnea, Cough Cardiovascular: Denies: Chest Pain, Palpitations, Orthopnea, Paroxysmal Noc. Dyspnea, Lt Headedness Psych: Reports: Mood Normal; Denies: Depression, Memory Issues Objective Physical Examination General Exam: Positive: Alert, Cooperative Neck Exam: Positive: Supple Chest Exam: Positive: Clear to auscultation, Diminished (bibasilar); Negative: Normal air movement, Rales Heart Exam: Positive: Rate Normal, Normal S1 Abdomen Exam: Positive: Normal bowel sounds, Soft; Negative: Tenderness Extremity Exam: Negative: Edema Skin Exam: Negative: Rash Psych Exam: Positive: Mental status NL, Mood NL, Oriented x 3 Assessment /Plan Problems (1) End stage renal disease on dialysis Status: Chronic Problem Text: 09/04/18: anticipate DC home in am. 09/02: dialysis again today. possible home tomorrow. usual dialysis days are MWF 09/01 Plans for Dialysis today, resp status has improved. Cont with PT. 08/31 [facility] pt, care taken over today. She has been dialyzed twice since admition, 08/28 and 08/30. Her resp status has improved. Dialysis days MWF. Rec 2 units blood during dialysis yest with improvement in her Hgb, monitor. PT ordered today, DC home when safe. 08/30 Patient had a hemodialysis session done today She gets dialyzed on Tuesday, Tuesday and Tuesday Leg edema and hypovolemia has improved very well with dialysis Patient also received 2 units of PRBC during dialysis Serum potassium also has been corrected H&H is stable Further recommendations as per nephrology Continue present medications and care (2) Anemia in chronic kidney disease, on chronic dialysis Status: Chronic Response to Treatment: Stable, Improving Problem Specific Plan: Monitor Clinically, Repeat Labs Problem Text: Pt rec 2 units pRBCs 08/30, monitor Hgb. (3) Pulmonary fibrosis Status: Chronic Response to Treatment: Stable Problem Specific Plan: Monitor Clinically (Con) Problem Text: Stable on HD pred 10 QD. Curiously patient professes no awareness of this dx. (4) Diastolic congestive heart failure Status: Acute Problem Text: Improved WALTER/hypoxia c increased volume reduction via HD 08/2017 TTE: 1. Normal global left ventricular systolic function. There are features of left ventricular diastolic dysfunction manifested by abnormal relaxation. 2. Aortic valve sclerosis with no aortic regurgitation, but trivial aortic stenosis. 3. Mitral annulus calcification with mild mitral regurgitation. 4. Moderate tricuspid regurgitation with moderate to severe pulmonary hypertension. 5. Trace pericardial effusion noted, no evidence of cardiac tamponade. DD: KIKO GARCIA MD 09/10/17 1317 (5) Physical deconditioning Status: Chronic Problem Text: 08/31 PT consult P (6) Back pain Status: Chronic Response to Treatment: Worse Problem Text: older cxr shows compression fractures in thoracic levels. also seen on CXR from this admission but not mentioned by radiology. inadequate pain control with current med. will try shift to hydrocodone 5/325 apap. on same schedule. (7) Pulmonary hypertension associated with ESRD on dialysis Status: Chronic Response to Treatment: Stable Problem Text: Echo 08/2017 demonstrated moderate to sever pulmonary hypertension with tricuspid regurg. Plan/VTE VTE Prophylaxis Ordered?: Yes VS, I&O, 24H, Fishbone Vital Signs/I&O Vital Signs Date Time Temp Pulse Resp B/P (MAP) Pulse Ox O2 Delivery O2 Flow Rate FiO2 09/04/18 10:00 97.5 78 18 143/68 (93) 97 I&O- Last 24 Hours up to 6 AM 09/04/18 06:00 Intake Total 1080 ml Output Total 0 ml Balance 1080 ml Laboratory Data 24H LABS Laboratory Tests 2 09/04/18 05:54: Immature Granulocyte % (Auto) 3.1H, White Blood Count 8.8, Red Blood Count 3.68L, Hemoglobin 10.8L, Hematocrit 34.6L, Mean Corpuscular Volume 94.0, Mean Corpuscular Hemoglobin 29.3, Mean Corpuscular Hemoglobin Concent 31.2L, Red Cell Distribution Width 19.7H, Platelet Count 103L, Neutrophils (%) (Auto) 75.1H, Lymphocytes (%) (Auto) 11.1L, Monocytes (%) (Auto) 8.8H, Eosinophils (%) (Auto) 1.6, Basophils (%) (Auto) 0.3, Neutrophils # (Auto) 6.6, Lymphocytes # (Auto) 1.0L, Monocytes # (Auto) 0.8, Eosinophils # (Auto) 0.1, Basophils # (Auto) 0.0, Nucleated Red Blood Cells % (auto) 0.0, Blood Urea Nitrogen 54H, Creatinine 5 .91H, Sodium Level 132L, Potassium Level 5.4H, Chloride Level 97L, Carbon Dioxide Level 24, Anion Gap 11, Glomerular Filtration Rate 7.2L, Calcium Level 8.3L, Phosphorus Level 3.4, Albumin 3.0L CBC/BMP Laboratory Tests 09/04/18 05:54 Red Blood Count 3.68 L, Mean Corpuscular Volume 94.0, Mean Corpuscular Hemoglobin 29.3, Mean Corpuscular Hemoglobin Concent 31.2 L, Red Cell Dis tribution Width 19.7 H, Neutrophils (%) (Auto) 75.1 H, Lymphocytes (%) (Auto) 11.1 L, Monocytes (%) (Auto) 8.8 H, Eosinophils (%) (Auto) 1.6, Basophils (%) (Auto) 0.3, Neutrophils # (Auto) 6.6, Lymphocytes # (Auto) 1.0 L, Monocytes # (Auto) 0.8, Eosinophils # (Auto) 0.1, Basophils # (Auto) 0.0, Anion Gap 11 Ivonne Dunn [facility] Sep 04, 2018 11:04
[2018-09-04 18:00] VITALS: BP 112/60
--- NOTE | 2018-09-04 19:33 | IPN ---
DATE: 09/04/2018 SUBJECTIVE: The patient was seen and examined at the bedside today, morning. She denies any shortness of breath. She is afebrile, hemodynamically stable. She is getting ready to have her hemodialysis done today. She otherwise denies any active complaints. OBJECTIVE: VITAL SIGNS: Temperature is 97.5 degrees Fahrenheit, blood pressure 143/68, pulse is 78, respiratory rate of 18, saturating 97% on room air. INTAKE/OUTPUT: There is no urine output recorded. Weight on the bed scale is not available. PHYSICAL EXAMINATION: GENERAL: The patient is awake, alert, oriented times three, sitting up in the bed in no apparent distress. HEAD AND NECK EXAM: Extraocular muscles intact. Pupils equally round and reactive to light. Mucous membranes are moist. Neck is supple. There is no jugular venous distention (JVD). CARDIOVASCULAR: S1, S2, grade 3/6 systolic ejection murmur, 1+ edema of the bilateral lower extremities. RESPIRATORY: Chest is clear to auscultation bilaterally. Bilateral equal air entry. No rales or rhonchi. ABDOMEN: Abdomen is soft. Positive bowel sounds, nontender. No organomegaly. MUSCULOSKELETAL: No clubbing or cyanosis. 1+ edema of the extremities. CENTRAL NERVOUS SYSTEM (SENIOR MECHANICAL DESIGNER): No focal deficit. Power is 5/5 in bilateral upper extremities. LAB REVIEW: CBC showed WBC of 8.8, hemoglobin 10.8, platelets are 103. BMP showed sodium 132, potassium 5.4, chloride 97, bicarbonate 24, BUN 54, creatinine is 5.9. CURRENT INPATIENT MEDICATIONS: The patient's medications were all reviewed by me. There is no change in the medications today as compared with yesterday. ASSESSMENT AND PLAN: 1. End-stage renal disease, on hemodialysis. Patient will be dialyzed today according to regular schedule. I will try to remove at least 2.5 liters of fluid as tolerated by blood pressure. 2. Hyponatremia. Patient has hypervolemic hyponatremia. Sodium is expected to improve after dialysis and fluid removal. 3. Hyperkalemia. Patient will be dialyzed with a 2K bath. Potassium will improve after dialysis. 4. Anemia in end-stage renal disease. Hemoglobin is 10.8, which is optimum. Patient is currently not on Aranesp. 5. Diastolic congestive heart failure. Volume status is significantly better. Remove 2.5 liters of fluid again today. Dry weight will be adjusted as an outpatient when she goes for dialysis.
[2018-09-04 21:23] VITALS: BP 115/50
[2018-09-05 01:37] VITALS: BP 118/85
[2018-09-05] MEDS: ACETAMINOPHEN TAB 650MG DOSE (2X325MG) PO PRN ×3 (02:21→15:30)
[2018-09-05 06:52] VITALS: BP 124/74
[2018-09-05] MEDS: VITAMIN D 1,000 INTERNATIONAL UNITS TABLET PO SCH (09:19)
[2018-09-05] MEDS: ASPIRIN 81 MG ENTERIC TAB PO SCH (09:19)
[2018-09-05] MEDS: (RENVELA) SEVELAMER **CARBONate** 800 MG TAB PO SCH ×2 (09:19→12:18)
[2018-09-05] MEDS: APIXABAN 2.5 MG TAB (ELIQUIS) PO SCH (09:19)
[2018-09-05] MEDS: MYCOPHENOLATE MOFETIL 250 MG CAP (J7517) PO SCH (09:19)
[2018-09-05] MEDS: MIDODRINE 5 MG TAB PO SCH ×3 (09:19→15:29)
[2018-09-05] MEDS: predniSONE 10 MG TAB PO SCH (09:19)
[2018-09-05 10:00] VITALS: BP 125/73
[2018-09-05] MEDS: ONDANSETRON 4 MG ORAL DISINTEGRATING TAB (Q0162 PER 1MG) PO PRN (11:14)
[2018-09-05 12:34] LABS: CREATININE FOR GFR 4.15 MG/DL (0.55-1.30); GLOMERULAR FILTRATION RATE 10.8 (>32); POTASSIUM SERUM 4.8 MEQ/L (3.5-5.1)
[2018-09-05 14:00] VITALS: BP 129/73
--- NOTE | 2018-09-05 18:35 | DSES ---
DATE OF ADMISSION: 08/28/2018 DATE OF DISCHARGE: 09/05/2018 PRIMARY CARE PROVIDER (PCP): Dr. Farshad Dick. ATTENDING PHYSICIAN: Dr. Emery Currie. This is an 88-year-old female with a past medical history of end-stage renal disease on hemodialysis three times a week, on Mondays, Wednesdays and Fridays, also deep venous thrombosis (DVT), irritable bowel syndrome, presented to the emergency room (ER) with complaints of worsening lower extremity swelling and shortness of breath. HOSPITAL COURSE: Nephrology was consulted. She did receive some extra dialysis sessions. She was kept on a 2 gram sodium diet. Potassium was replaced accordingly with fluid removal. Patient did receive transfusions as well during dialysis secondary to some anemia. She has been clinically stable for several days; however, has needed some increased therapy and nursing to improve her physical abilities in order to return home independently. Most recent labs show a creatinine of 5.91. She did receive dialysis yesterday and we will repeat a basic metabolic panel (BMP) today prior to her returning to home. PHYSICAL EXAMINATION: VITAL SIGNS: Stable. She is afebrile. HEENT: Neck is supple without lymphadenopathy or jugular venous distention (JVD). CARDIOVASCULAR: Heart rate and rhythm are regular. PULMONARY: Lungs are clear. ABDOMEN: Soft, nontender. Bilateral lower extremities with trace edema. ASSESSMENT: 1. End-stage renal disease with fluid volume overload. 2. Anemia on chronic kidney disease. 3. Pulmonary fibrosis. 4. Diastolic congestive heart failure. 5. Physical deconditioning. 6. Back pain, which is chronic. 7. Pulmonary hypertension. PLAN: 1. Patient will be discharged to home. 2. Diet is 2 gram sodium. 3. Activity is as tolerated. 4. She will resume her [facility] Services. MEDICATIONS: Are as follows: - Eliquis 2.5 mg by mouth twice a day - aspirin 81 mg one daily - vitamin D3 1000 International Units by mouth daily - Megace 10 mg daily - midodrine 2.5 mg by mouth three times a day - mycophenolate 250 mg by mouth twice a day - Zofran 4 mg every 8 hours has needed for nausea - Percocet 5/325 mg by mouth four times a day as needed for pain - prednisone 10 mg by mouth daily - ranitidine 150 mg by mouth daily as needed for indigestion - Renvela 800 mg one by mouth three times a day CONSULTS: 1. Dr. Luca Parekh. 2. Dr. Rakesh Peña. IMAGING: Chest x-ray times two. Stable chronic changes. No acute disease appreciated. Patient is discharged in stable and satisfactory condition with no further questions at time of discharge.
--- NOTE | 2018-09-05 20:47 | IPN ---
DATE: 09/05/2018 SUBJECTIVE: The patient was seen and examined at the bedside today morning. She is afebrile, hemodynamically stable. She denies any active complaints. She was dialyzed yesterday. There was 1.3 liters of fluid removed. She passed the physical therapy. The patient reports that she is getting ready to be discharged today. OBJECTIVE: Vital signs: Temperature is 98.8 degrees Fahrenheit, blood pressure 129/73, pulse is 86, respiratory rate of 18, saturating 95% on room air. Intake and output: Ultrafiltration with hemodialysis was 1.3 liters yesterday. Weight in the bed scale is not available. PHYSICAL EXAMINATION: GENERAL: The patient is awake, alert, oriented times three, sitting up in the bed in no apparent distress. HEAD AND NECK: Extraocular muscles intact. Pupils equally round and reactive to light. Mucous membranes are moist. Neck is supple. There is no jugular venous distention (JVD) . CARDIOVASCULAR: The patient has grade 4/6 systolic ejection murmur, 1+ edema of the bilateral lower extremities. RESPIRATORY: Mildly decreased breath sounds at the bases and mild crepitations on bases on deep inspiration. ABDOMEN: Soft. Positive bowel sounds. Nontender. No organomegaly. MUSCULOSKELETAL: No clubbing or cyanosis. Pulses are 2+. CENTRAL NERVOUS SYSTEM: No focal deficit. Power is 5/5 in bilateral upper extremities. LABORATORY REVIEW: CBC from yesterday with a hemoglobin of 10.8. BMP done today showed sodium 135, potassium 4.8, chloride 97, bicarbonate 30, BUN 35, creatinine is 4.1. CURRENT INPATIENT MEDICATIONS: The patient's medications were all reviewed by me. There is no change in the medications today as compared with yesterday. ASSESSMENT AND PLAN: 1. End-stage renal disease, on hemodialysis. The patient was dialyzed yesterday according to her regular schedule. Fluid status is optimized. Next hemodialysis session will be tomorrow as outpatient . 2. Hyperkalemia. Potassium level has improved to 4.8 after dialysis. 3. Diastolic congestive heart failure. The patient's volume status is better. Her dry weight will be adjusted tomorrow during dialysis. The patient has a significant systolic ejection murmur. She is going to followup with cardiology as outpatient end of this month.
== END 2018-09-05 16:15 | disposition home health service (06) | DRG 682 ==
LOC: M ED 15:06 → M ED INP 20:29 → M PCU 22:19 → M MS5PR 08-31 14:30
PROVIDERS: ADMIT Student in an Organized Health Care Education/Training Program; ATTEND Family Medicine
PROC: 5A1D70Z Performance of Urinary Filtration, Intermittent, Less than 6 Hours Per Day (ICD-10-PCS; 2018-08-29)
PROC: 30233N1 Transfusion of Nonautologous Red Blood Cells into Peripheral Vein, Percutaneous Approach (ICD-10-PCS; principal; 2018-08-30)
DX: N18.6 End stage renal disease (principal); I50.33 Acute on chronic diastolic (congestive) heart failure; E87.1 Hypo-osmolality and hyponatremia; R19.7 Diarrhea, unspecified; D63.1 Anemia in chronic kidney disease; I27.20 Pulmonary hypertension, unspecified; M54.5 Low back pain; E87.5 Hyperkalemia; Z79.899 Other long term (current) drug therapy; Z79.01 Long term (current) use of anticoagulants; Z86.718 Personal history of other venous thrombosis and embolism; N05.9 Unspecified nephritic syndrome with unspecified morphologic changes; J84.10 Pulmonary fibrosis, unspecified; Z88.2 Allergy status to sulfonamides; Z88.8 Allergy status to other drugs, medicaments and biological substances; Z88.5 Allergy status to narcotic agent; I95.9 Hypotension, unspecified

== ENCOUNTER 2018-09-29 18:09 | Inpatient (IN) | payer MEDICARE, MEDICAID ==
[~2018-09-29] VITALS: Ht 149.9 cm; Wt 59.1 kg
[~2018-09-29 18:09] MED LIST changes: +MM S100C PO; -STOO100C PO
[2018-09-29 20:31] LABS: BASO % 0.2 % (0.0-1.0); EOS % 0.2 % (0.0-3.0); HEMATOCRIT 34.9 % (36.0-47.0); HEMOGLOBIN 10.9 g/dl (12.0-15.5); LYMPH # 0.5 10^3/uL (1.5-4.5); LYMPH % 5.8 % (24.0-44.0); MEAN CORPUSCULAR HEMOGLOBIN 31.1 pg (27.0-33.0); MEAN CORPUSCULAR HGB CONC 31.2 g/dl (32.0-36.5); MEAN CORPUSCULAR VOLUME 99.7 fl (80.0-96.0); MONO # 0.7 10^3/uL (0.0-0.8); MONO % 8.1 % (0.0-5.0); NEUTROPHILS # 7.1 10^3/uL (1.8-7.7); NEUTROPHILS % 83.2 % (36.0-66.0); PLATELET COUNT, AUTOMATED 205 10^3/uL (150-450); WHITE BLOOD COUNT 8.5 10^3/uL (4.0-10.0)
[2018-09-29] MEDS ORDERED: MIDO5TA PO (23:42)
[2018-09-29] MEDS ORDERED: ACET1TAB55 PO (23:42)
[2018-09-29 23:51] LABS: ALBUMIN 3.5 GM/DL (3.2-5.2); BILIRUBIN,DIRECT 0.1 MG/DL (0.0-0.2); BILIRUBIN,TOTAL 0.6 MG/DL (0.2-1.0); CALCIUM LEVEL 8.6 MG/DL (8.8-10.2); CREATININE FOR GFR 2.73 MG/DL (0.55-1.30); FREE T4 0.97 NG/DL (0.76-1.46); GLOMERULAR FILTRATION RATE 17.6 (>32); MB/CK RELATIVE INDEX 3.92 (< OR =4); POTASSIUM SERUM 4.1 MEQ/L (3.5-5.1); THYROID STIMULATING HORMONE 6.38 uIU/ML (0.358-3.740); TOTAL PROTEIN 6.3 GM/DL (6.4-8.2); TROPONIN I 0.09 NG/ML (< 0.10)
--- NOTE | 2018-09-30 01:57 | HPEPDOC ---
General Date of Admission Sep 29, 2018 at 23:37 Date of Service: Sep 29, 2018 Chief Complaint The patient is a 88-year-old female admitted with a reason for visit of Acute Exacerbation Of Chf. History of Present Illness 88-year-old female with past medical history of chronic hypotension, congestive heart failure, DVT, end-stage renal disease on hemodialysis, pulmonary fibrosis presented from her dialysis treatment Center today. The patient was sent to the hospital to be admitted for inpatient dialysis given her fluid overloaded state. The patient tells me that dialyzing her has been a challenge on the outpatient basis due to her chronic fluid overload and hypotension during dialysis sessions. The patient tells me that she has also been feeling increasingly short of breath during this time due to fluid overload. She denies any complaints of fevers, chills, chest pain, palpitations, abdominal pain, or any nausea/chronic/diarrhea. Home Medications Scheduled Apixaban (Eliquis) 2.5 Mg Tablet, 2.5 MG PO BID, (Reported) Cholecalciferol (Vitamin D3) (Vitamin D3) 1,000 Unit Tab, 1,000 UNITS PO DAILY, (Reported) Megestrol Acetate (Megestrol Acetate) 20 Mg Tab, 10 MG PO DAILY, (Reported) Midodrine HCl (Midodrine HCl) 5 Mg Tablet, 5 MG PO TID, (Reported) Mycophenolate Mofetil (Mycophenolate Mofetil) 250 Mg Cap, 500 MG PO BID, (Reported) Prednisone (Prednisone) 10 Mg Tab, 10 MG PO DAILY, (Reported) Sevelamer Carbonate (Renvela) 800 Mg Tablet, 800 MG PO TID, (Reported) Scheduled PRN Acetaminophen (Acetaminophen) 325 Mg Tablet, 650 MG PO Q4H PRN for PAIN, (Reported) Ondansetron (Ondansetron Odt) 4 Mg Tab, 4 MG PO Q8H PRN for NAUSEA, (Reported) Ranitidine HCl (Ranitidine HCl) 150 Mg Tablet, 1 TAB PO DAILY PRN for INDIGESTION, (Reported) Allergies Coded Allergies: Tetracyclines (Verified Allergy, Unknown, 09/29/18) codeine (Verified Allergy, Unknown, 09/29/18) fenofibrate (Verified Allergy, Unknown, 09/29/18) moxifloxacin (Verified Allergy, Unknown, 09/29/18) Cephalosporins (Verified Adverse Reaction, Mild, NAUSEA, 7/12/19) cefuroxime (Verified Adverse Reaction, Mild, NAUSEA, 09/29/18) morphine (Verified Adverse Reaction, Mild, CONFUSION , 09/29/18) sulfamethoxazole (Verified Adverse Reaction, Mild, NAUSEA, 09/29/18) trimethoprim (Verified Adverse Reaction, Mild, NAUSEA, 09/29/18) Past Medical History Medical History As noted in HPI. Surgical History Appendectomy, hysterectomy Social History * Smoker: Denies Alcohol: rarely Review of Systems Other systems 10 point review of systems negative unless otherwise specified in HPI. Physical Examination General Exam: Positive: Alert, Cooperative, No Acute Distress ENT Exam: Positive: Atraumatic Chest Exam: Positive: Rales (bibasilar rales noted auscultation), Diminished Heart Exam: Positive: Rate Normal, Normal S1, Normal S2 Abdomen Exam: Positive: Soft; Negative: Tenderness Extremity Exam: Positive: Edema (1+ pitting edema in the lower extremities bilaterally); Negative: Tenderness Psych Exam: Positive: Oriented x 3 Vital Signs Vital Signs Date Time Temp Pulse Resp B/P (MAP) Pulse Ox O2 Delivery O2 Flow Rate FiO2 09/29/18 23:26 82 19 117/53 (74) 100 Nasal Cannula 2.0 09/29/18 18:26 99.0 Laboratory Data Labs 24H Laboratory Tests 2 09/29/18 20:23: Immature Granulocyte % (Auto) 2.5, White Blood Count 8.5, Red Blood Count 3.50L, Hemoglobin 10.9L, Hematocrit 34.9L, Mean Corpuscular Volume 99.7H, Mean Corpuscular Hemoglobin 31.1, Mean Corpuscular Hemoglobin Concent 31.2L, Red Cell Distribution Width 21.9H, Platelet Count 205, Neutrophils (%) (Auto) 83.2H, Lymphocytes (%) (Auto) 5.8L, Monocytes (%) (Auto) 8.1H, Eosinophils (%) (Auto) 0.2, Basophils (%) (Auto) 0.2, Neutrophils # (Auto) 7.1, Lymphocytes # (Auto) 0.5L, Monocytes # (Auto) 0.7, Eosinophils # (Auto) 0.0, Basophils # (Auto) 0.0, Nucleated Red Blood Cells % (auto) 0.0 09/29/18 23:07: Anion Gap 8, Glomerular Filtration Rate 17.6L, Calcium Level 8.6L, Aspartate A osvaldo Transf (AST/SGOT) 23, Alanine Aminotransferase (ALT/SGPT) 15, Alkaline Phosphatase 79, Total Bilirubin 0.6, Direct Bilirubin 0.1, Total Creatine Kinase 51, Creatine Kinase MB 2.0, Creatine Kinase MB Relative Index 3.92, Troponin I 0.09, Total Protein 6.3L, Albumin 3.5, Albumin/Globulin Ratio 1.25, Thyroid Stimulating Hormone (TSH) 6.380H, Free Thyroxine 0.97 CBC/BMP Laboratory Tests 09/29/18 20:23 Red Blood Count 3.50 L, Mean Corpuscular Volume 99.7 H, Mean Corpuscular Hemoglobin 31.1, Mean Corpuscular Hemoglobin Concent 31.2 L, Red Cell Distribution Width 21.9 H, Neutrophils (%) (Auto) 83.2 H, Lymphocytes (%) (Auto) 5.8 L, Monocytes (%) (Auto) 8.1 H, Eosinophils (%) (Auto) 0.2, Basophils (%) (Auto) 0.2, Neutrophils # (Auto) 7.1, Lymphocytes # (Auto) 0.5 L, Monocytes # (Auto) 0.7, Eosinophils # (Auto) 0.0, Basophils # (Auto) 0.0 09/29/18 23:07 Plan / VTE VTE Prophylaxis Ordered?: Yes Plan Plan Decompensated Diastolic CHF in a patient with ESRD on HD We will consult nephrology to volume optimize the patient via dialysis--at this time there is no emergent need for dialysis, she will be scheduled for a session later this a.m. History of DVT Continue eliquis Chronic hypotension Continue midodrine History of pulmonary fibrosis Continue home regimen as ordered EREN MEDINA MD Sep 30, 2018 01:57
[2018-09-30] MEDS ORDERED: ONDANSETRON 4 MG ORAL DISINTEGRATING TAB (Q0162 PER 1MG) PO PRN (02:00)
[2018-09-30] MEDS ORDERED: FAMOTIDINE 20 MG TAB PO PRN (02:00)
[2018-09-30] MEDS ORDERED: PILL CUTTER 1 EACH XX PRN (02:30)
[2018-09-30 06:16] LABS: HEMATOCRIT 33.9 % (36.0-47.0); HEMOGLOBIN 10.1 g/dl (12.0-15.5); MEAN CORPUSCULAR HEMOGLOBIN 31.6 pg (27.0-33.0); MEAN CORPUSCULAR HGB CONC 29.8 g/dl (32.0-36.5); MEAN CORPUSCULAR VOLUME 105.9 fl (80.0-96.0); PLATELET COUNT, AUTOMATED 185 10^3/uL (150-450); WHITE BLOOD COUNT 8.8 10^3/uL (4.0-10.0)
[2018-09-30 06:49] LABS: CALCIUM LEVEL 8.6 MG/DL (8.8-10.2); CREATININE FOR GFR 3.16 MG/DL (0.55-1.30); GLOMERULAR FILTRATION RATE 14.8 (>32); MAGNESIUM LEVEL 2.2 MG/DL (1.8-2.4); POTASSIUM SERUM 4.3 MEQ/L (3.5-5.1)
--- NOTE | 2018-09-30 07:19 | REP ---
Portable chest x-ray: Single view. History: Chest pain. Comparison chest x-ray: September 03, 2018. Findings: Left hemidiaphragm remains elevated. The lungs are exposed at a low level of inspiration. There is a granulomatous calcification on the left. Linear fibrosis is seen in the left base. A diffuse interstitial fibrosis pattern is noted throughout the lung [place]man. No acute infiltrate is appreciated. There is diffuse osteopenia. Impression: Interstitial lung disease and linear fibrosis left base unchanged. No acute abnormality seen. Electronically Signed by Dmitri Matamoros MD 09/30/2018 11:57 A
[2018-09-30] MEDS: ACETAMINOPHEN TAB 650MG DOSE (2X325MG) PO PRN ×2 (07:34→13:13)
[2018-09-30] MEDS: MIDODRINE 5 MG TAB PO SCH ×3 (08:00→17:43)
[2018-09-30] MEDS: (RENVELA) SEVELAMER **CARBONate** 800 MG TAB PO SCH ×3 (08:00→17:43)
[2018-09-30] MEDS: MYCOPHENOLATE MOFETIL 250 MG CAP (J7517) PO SCH ×2 (09:00→20:38)
[2018-09-30] MEDS: APIXABAN 2.5 MG TAB (ELIQUIS) PO SCH ×2 (09:00→20:38)
[2018-09-30] MEDS: MEGESTROL 40 MG TAB PO SCH (09:00)
[2018-09-30] MEDS: predniSONE 10 MG TAB PO SCH (09:00)
--- NOTE | 2018-09-30 11:43 | IPNPDOC ---
Subjective Date Seen The patient was seen on 09/30/18. Subjective Chief Complaint/HPI I was short of breath with minimal activity General: Reports: Normal Appetite; Denies: Chills Constitutional: Denies: Chills ENT: Denies: Head Aches Pulmonary: Reports: Dyspnea; Denies: Pleuritic Chest Pain Cardiovascular: Denies: Chest Pain, Palpitations Gastrointestinal: Denies: Nausea, Vomiting, Abdominal Pain Genitourinary: Denies: Dysuria Neurological: Denies: Weakness Psych: Reports: Mood Normal Objective Physical Examination General Exam: Positive: Alert, Cooperative, No Acute Distress ENT Exam: Positive: Atraumatic Chest Exam: Positive: Rales (bibasilar rales noted auscultation), Diminished Heart Exam: Positive: Rate Normal, Normal S1, Normal S2 Abdomen Exam: Positive: Soft; Negative: Tenderness Extremity Exam: Positive: Edema (no edema observed pretibial this am); Negative: Tenderness Skin Exam: Positive: Nl turgor and temperature; Negative: Rash Psych Exam: Positive: Mental status NL, Oriented x 3 Assessment /Plan Problems (1) End stage renal disease on dialysis Status: Chronic Response to Treatment: Stable Discussed With: Tip Puncher (Dr. Parekh) Problem Text: fluid overload may have contributed to her dyspnea resulting in acute decompensation of chronic diastolic CHF with contribution from her pulmonary fibrosis. feels better this am, during dialysis session. (2) Hypoxia Status: Acute Response to Treatment: Improving Problem Text: pulmonary fibrosis with possibly some contribution from acute decompensation of chronic diastolic CHF. (3) Pulmonary fibrosis Status: Chronic Problem Text: hypoxia likely due to combination of fibrosis plus some degree of chf worsening. how much will be revealed by dialysis. if getting to "dry weight" leaves her hypoxic then she will need home O2. (4) Diastolic congestive heart failure Status: Acute Response to Treatment: Improving Problem Text: acute on chronic. improving this am. Plan/VTE VTE Prophylaxis Ordered?: Yes Plan Anticipated Discharge: Home (goal is home on Tuesday am so she can attend her [facility] afternoon dialysis session. will need home O2 set up) VS, I&O, 24H, Fishbone Vital Signs/I&O Vital Signs Date Time Temp Pulse Resp B/P (MAP) Pulse Ox O2 Delivery O2 Flow Rate FiO2 09/30/18 07:14 75 147/63 (91) 100 09/30/18 06:24 17 7/12/19 23:26 Nasal Cannula 2.0 09/29/18 18:26 99.0 Laboratory Data 24H LABS Laboratory Tests 2 09/29/18 20:23: Immature Granulocyte % (Auto) 2.5, White Blood Count 8.5, Red Blood Count 3.50L, Hemoglobin 10.9L, Hematocrit 34.9L, Mean Corpuscular Volume 99.7H, Mean Corpuscular Hemoglobin 31.1, Mean Corpuscular Hemoglobin Concent 31.2L, Red Cell Distribution Width 21.9H, Platelet Count 205, Neutrophils (%) (Auto) 83.2H, Lymphocytes (%) (Auto) 5.8L, Monocytes (%) (Auto) 8.1H, Eosinophils (%) (Auto) 0.2, Basophils (%) (Auto) 0.2, Neutrophils # (Auto) 7.1, Lymphocytes # (Auto) 0.5L, Monocytes # (Auto) 0.7, Eosinophils # (Auto) 0.0, Basophils # (Auto) 0.0, Nucleated Red Blood Cells % (auto) 0.0 09/29/18 23:07: Anion Gap 8, Glomerular Filtration Rate 17.6L, Calcium Level 8.6L, Aspartate Amino Transf (AST/SGOT) 23, Alanine Aminotransferase (ALT/SGPT) 15, Alkaline Phosphatase 79, Total Bilirubin 0.6, Direct Bilirubin 0.1, Total Creatine Kinase 51, Creatine Kinase MB 2.0, Creatine Kinase MB Relative Index 3.92, Troponin I 0.09, Total Protein 6.3L, Albumin 3.5, Albumin/Globulin Ratio 1.25, Thyroid Stimulating Hormone (TSH) 6.380H, Free Thyroxine 0.97 09/30/18 06:02: Nucleated Red Blood Cells % (auto) 0.0, Anion Gap 7L, Glomerular Filtration Rate 14.8L, Calcium Level 8.6L, Blood Urea Nitrogen 27H, Creatinine 3.16H, Sodium Level 142, Potassium Level 4.3, Chloride Level 104, Carbon Dioxide Level 31, Magnesium Level 2.2 CBC/BMP Laboratory Tests 09/29/18 20:23 Red Blood Count 3.50 L, Mean Corpuscular Volume 99.7 H, Mean Corpuscular Hemoglobin 31.1, Mean Corpuscular Hemoglobin Concent 31.2 L, Red Cell Distribution Width 21.9 H, Neutrophils (%) (Auto) 83.2 H, Lymphocytes (%) (Auto) 5.8 L, Monocytes (%) (Auto) 8.1 H, Eosinophils (%) (Auto) 0.2, Basophils (%) (Auto) 0.2, Neutrophils # (Auto) 7.1, Lymphocytes # (Auto) 0.5 L, Monocytes # (Auto) 0.7, Eosinophils # (Auto) 0.0, Basophils # (Auto) 0.0 09/29/18 23:07 09/30/18 06:02 Red Blood Count 3.20 L, Mean Corpuscular Volume 105.9 H, Mean Corpuscular Hemoglobin 31.6, Mean Corpuscular Hemoglobin Concent 29.8 L, Red Cell Distribution Width 22.1 H, Calcium Level 8.6 L Viraj Quevedo MD Sep 30, 2018 11:43
[2018-09-30] MEDS ORDERED: HEPARIN 1,000 UNITS/ML 10ML VIAL (FOR RADIOLOGY& DIALYSIS ONLY) IV ONE (12:00)
[2018-09-30 20:00] VITALS: BP 130/32
--- NOTE | 2018-09-30 21:18 | CR ---
DATE OF CONSULTATION: 09/30/2018 REQUESTING PHYSICIAN: Dr. Cristian Leiva REASON FOR CONSULTATION: Management of end-stage renal disease, on hemodialysis. HISTORY OF PRESENT ILLNESS: Janay is well known to me. She is an 88-year-old female with a past medical history of end-stage renal disease, on hemodialysis on Tuesday, Tuesday, Tuesday schedule, pulmonary fibrosis, history of deep vein thrombosis (DVT) congestive heart failure, chronic hypotension, anemia related to chronic renal failure, and other comorbid conditions mentioned below. The patient has been complaining of progressive shortness of breath and leg swelling over the past several days to week. Family members report that she has become progressively more and more dyspneic on exertion. The patient has been cutting her dialysis treatment time down and was scheduled to come for an extra dialysis treatment as an outpatient on Tuesday; however, when she presented to the hemodialysis outpatient clinic on September 29, her predialysis resting oxygen saturation was noted to be as low as 77% on room air. She was subsequently placed on supplemental oxygen, dialyzed, and then sent to the emergency room for further evaluation and treatment. The patient is requesting home oxygen to be set up. She is seen and examined this morning in the hemodialysis unit, receiving an extra dialysis session. PAST MEDICAL HISTORY: 1. End-stage renal disease requiring maintenance hemodialysis. 2. Congestive heart failure. 3. Chronic hypotension. 4. History of DVT. 5. History of anemia of end-stage renal disease. 6. History of chronic lower extremity edema. 7. History of irritable bowel syndrome. 8. Ronald's granulomatosis. 9. Pulmonary fibrosis. 10. Secondary hyperparathyroidism of renal origin. PAST SURGICAL HISTORY: 1. Hysterectomy. 2. Appendectomy. SOCIAL HISTORY: There is no history of alcohol or tobacco use or drug use. FAMILY HISTORY: Negative for end-stage renal disease. ALLERGIES: Multiple, including SULFA, TETRACYCLINE, CODEINE, CEFUROXIME, MORPHINE, FENOFIBRATE, MOXIFLOXACIN, and CEPHALOSPORIN. HOME MEDICATIONS: Reviewed and include: - Eliquis - aspirin - vitamin D - Megace - midodrine three times a day - CellCept - prednisone 10 mg by mouth daily - Renvela 800 mg three times a day with meals - Zofran as needed - Percocet as needed REVIEW OF SYSTEMS: The patient is generally very weak and runs low blood pressure. She had her last dialysis yesterday on Tuesday, and she was supposed to come Tuesday for an ultrafiltration; however, she could not make it due to severe hypoxia with weakness and significant dyspnea. She was admitted yesterday post outpatient hemodialysis treatment. She denies fevers or chills. ENT: She denies rhinorrhea or dysphasia. Cardiovascular is significant for congestive heart failure and chronic hypotension. Respiratory system is significant for pulmonary fibrosis. Gastrointestinal (GI) system is significant for intermittent diarrhea. She denies nausea or vomiting. Genitourinary () system is significant for history of urinary tract infections (UTIs). She denies gross hematuria or dysuria. Endocrine is significant for secondary hyperparathyroidism of renal origin. She denies diabetes. Hematologic is significant for a prior history of DVT. She has anemia of chronic kidney disease. Musculoskeletal is significant for generalized weakness, frail habitus, and chronic pedal edema. Neurologic is negative for seizures or strokes. Psychosocial is negative for depression. There is some anxiety. PHYSICAL EXAMINATION: Respiratory rate is 18, blood pressure 152/67, saturating 100% on room air. GENERAL: The patient is seen in the hemodialysis unit receiving an extra treatment. An elderly female in no acute distress. Extraocular muscles are intact. Tongue is moist. Neck is supple. Jugular veins are mildly elevated. HEART: Sounds are regular, S1, S2. LUNGS: With crackles at the bases and diminished. ABDOMEN: Soft and nontender. The right upper extremity fistula is presently in use. The extremities show pedal edema bilaterally and edema up to the ankles. There is no edema in the dependent area. PSYCHIATRIC: Appropriate mood and effect. NEUROLOGIC: Oriented times three. No focal deficit. LABORATORY DATA: White count 8.8, hemoglobin 10.1. Sodium 142, potassium 4.3, magnesium 2.2. INPATIENT MEDICATIONS: Reviewed and include: - Tylenol as needed - Eliquis 2.5 mg by mouth twice a day - Pepcid 20 mg as needed - Megace 10 mg by mouth daily - midodrine 5 mg by mouth three times a day - CellCept 500 mg by mouth twice a day - prednisone 10 mg by mouth daily - Renvela 800 mg by mouth with meals Chest x-ray September 29: Interstitial lung disease and 1 year fibrosis. No acute infiltrate. PROBLEMS: 1. End-stage renal disease, on hemodialysis on a Tuesday, Tuesday, Tuesday schedule. She has been hypoxic and has been moderately volume overloaded. It is difficult to aggressively remove fluid during her hemodialysis treatments due to chronic hypotension of hemodialysis, despite use of midodrine three times a day. Additionally, she does sometimes cut her treatment times short. She was dialyzed yesterday and again today with about 5 liters of fluid removed all-in-all in the past 2 days. Her overall oxygen saturations have improved with dialysis and fluid removal. 2. Hypoxia. Oxygen saturation predialysis on Tuesday was as low as 77% on room air. The patient was fluid overloaded and also does have pulmonary fibrosis underlying. She has had [id number] dialysis and fluid removal on Tuesday and Tuesday, and she is clinically improving, but I feel she is likely to desaturate significantly with even minimal exertion, and she would likely benefit from home oxygen (cut off) discussed with primary team. 3. Diastolic congestive heart failure. The patient was dialyzed yesterday and again today. Volume status is improving. Continue midodrine for chronic hypotension of hemodialysis. Thank you for involving me in the care of Ms. Perez. I will be happy to follow her along with you.
[2018-10-01] VITALS: BP 135/48
[2018-10-01] MEDS: ACETAMINOPHEN TAB 650MG DOSE (2X325MG) PO PRN ×3 (01:35→20:29)
[2018-10-01 04:00] VITALS: BP 138/65
[2018-10-01 08:00] VITALS: BP 142/63
[2018-10-01] MEDS: MIDODRINE 5 MG TAB PO SCH ×3 (08:00→17:04)
[2018-10-01] MEDS: (RENVELA) SEVELAMER **CARBONate** 800 MG TAB PO SCH ×3 (08:00→17:04)
[2018-10-01] MEDS: APIXABAN 2.5 MG TAB (ELIQUIS) PO SCH ×2 (10:23→20:29)
[2018-10-01] MEDS: MEGESTROL 40 MG TAB PO SCH (10:23)
[2018-10-01] MEDS: MYCOPHENOLATE MOFETIL 250 MG CAP (J7517) PO SCH ×2 (10:23→20:59)
[2018-10-01] MEDS: predniSONE 10 MG TAB PO SCH (10:23)
--- NOTE | 2018-10-01 11:40 | IPNPDOC ---
Subjective Date Seen The patient was seen on 10/01/18. Subjective Chief Complaint/HPI comfortable Constitutional: Denies: Chills, Night Sweats ENT: Denies: Head Aches Skin: Denies: Rash Pulmonary: Denies: Dyspnea, Pleuritic Chest Pain Cardiovascular: Denies: Chest Pain, Palpitations Gastrointestinal: Denies: Nausea, Abdominal Pain Neurological: Denies: Weakness Psych: Reports: Mood Normal Objective Physical Examination General Exam: Positive: Alert, Cooperative, No Acute Distress ENT Exam: Positive: Atraumatic Chest Exam: Positive: Rales (bibasilar rales noted auscultation), Diminished Heart Exam: Positive: Rate Normal, Normal S1, Normal S2, Murmurs Abdomen Exam: Positive: Soft; Negative: Tenderness Extremity Exam: Positive: Edema (no edema observed pretibial this am); Negative: Tenderness Skin Exam: Positive: Nl turgor and temperature; Negative: Rash Psych Exam: Positive: Mental status NL, Oriented x 3 Assessment /Plan Problems (1) End stage renal disease on dialysis Status: Chronic Response to Treatment: Stable Discussed With: Director Of [employer] (Dr. Parekh) Problem Text: fluid overload may have contributed to her dyspnea resulting in acute decompensation of chronic diastolic CHF with contribution from her pulmonary fibrosis. feels better this am, during dialysis session. (2) Hypoxia Status: Acute Response to Treatment: Improving Problem Text: pulmonary fibrosis with possibly some contribution from acute decompensation of chronic diastolic CHF. (3) Pulmonary fibrosis Status: Chronic Problem Text: will likely need O2 for home. hypoxia likely due to combination of fibrosis plus some degree of chf worsening. how much will be revealed by dialysis. if getting to "dry weight" leaves her hypoxic then she will need home O2. (4) Diastolic congestive heart failure Status: Acute Response to Treatment: Improving Problem Text: 10/01 improved, looks comfortable. acute on chronic. improving this am. Plan/VTE VTE Prophylaxis Ordered?: Yes Plan Anticipated Discharge: Home (goal is home on Tuesday am so she can attend her usual afternoon dialysis session. will need home O2 set up) VS, I&O, 24H, Fishbone Vital Signs/I&O Vital Signs Date Time Temp Pulse Resp B/P (MAP) Pulse Ox O2 Delivery O2 Flow Rate FiO2 10/01/18 08:00 97.9 74 19 142/63 (89) 100 2.0 09/29/18 23:26 Nasal Cannula I&O- Last 24 Hours up to 6 AM 10/01/18 06:00 Intake Total 250 ml Output Total 2500 ml Balance -2250 ml Viraj Quevedo MD Oct 01, 2018 11:39
[2018-10-01 12:56] LABS: CALCIUM LEVEL 8.4 MG/DL (8.8-10.2); CREATININE FOR GFR 4.95 MG/DL (0.55-1.30); GLOMERULAR FILTRATION RATE 8.8 (>32); POTASSIUM SERUM 4.7 MEQ/L (3.5-5.1)
[2018-10-01 16:00] VITALS: BP 137/69
--- NOTE | 2018-10-01 16:54 | IPN ---
DATE: 10/01/2018 SUBJECTIVE: The patient is seen and examined this morning in the emergency room. She reports her shortness of breath and dyspnea on exertion are improved. She was dialyzed on Tuesday and Tuesday. She denies any new complaints. VITAL SIGNS: Temperature 97.9, pulse 74, respiratory rate 19, blood pressure 142/63, saturating 100%. Intake yesterday was not recorded. Dialysis yesterday removed 2500 mL. GENERAL: The patient is seen in lying in bed, elderly female in no acute distress. Extraocular muscles are intact. Tongue is moist. NECK: Supple. Jugular veins are mildly elevated, but improved from prior. HEART: Sounds are regular S1-S2. LUNGS: Have scattered crackles mostly at the bases and diminished breath sounds. There is no accessory muscle use and no tachypnea. ABDOMEN: Soft and nontender. There are bowel sounds. The right upper extremity fistula is patent with thrill and bruit. The lower extremities show pitting edema up to the ankles bilaterally. There is no edema in the dependent area. NEUROLOGIC: She is oriented x3 at baseline mentation. No focal deficit. PSYCHIATRIC: Appropriate mood and effect. LABORATORY DATA: Sodium 134, potassium 4.7, glucose 81, hemoglobin 10.1. Inpatient medications reviewed by myself and no change from prior. PROBLEMS: 1. End-stage renal disease on hemodialysis on Tuesday, Tuesday, Tuesday schedule. She has been hypoxic and has been moderately volume overloaded. She had dialysis on Tuesday and again on Tuesday for further ultrafiltration and volume removal. It is difficulty to aggressively remove fluid during her hemodialysis treatments due to chronic hypotension of hemodialysis despite use of midodrine three x a day; about 5 liters all-in-all were removed on Tuesday and Tuesday and she is symptomatically more comfortable and overall her oxygen saturations have improved; next dialysis will be on Tuesday. 2. Hypoxia, multifactorial, likely related to pulmonary fibrosis and hyperkalemia/ congestive heart failure exacerbation. She had a [id number] dialysis and fluid removal on Tuesday and Tuesday. She is clinically improved, but she is likely to desaturate even with mild or modest exertion because of her underlying pulmonary fibrosis and I feel that she should have home oxygen set up prior to a discharge. 3. Diastolic congestive heart failure. Volume status is improving with the extra dialysis session; and next week as an outpatient, we will plan to do an additional treatment as well. Continue midodrine for chronic hypotension of hemodialysis. 4. Anemia related to chronic renal failure; hemoglobin is optimal at 10.1 and no intervention is needed at present.
[2018-10-01 21:52] VITALS: BP 167/73
[2018-10-01 22:00] VITALS: BP 112/68
[2018-10-02] MEDS: ACETAMINOPHEN TAB 650MG DOSE (2X325MG) PO PRN ×4 (01:50→23:03)
[2018-10-02 06:02] VITALS: BP 163/74
[2018-10-02] MEDS: predniSONE 10 MG TAB PO SCH (06:08)
[2018-10-02] MEDS: MEGESTROL 40 MG TAB PO SCH (06:08)
[2018-10-02] MEDS: APIXABAN 2.5 MG TAB (ELIQUIS) PO SCH ×2 (06:08→20:14)
[2018-10-02] MEDS: MIDODRINE 5 MG TAB PO SCH ×3 (06:09→16:28)
[2018-10-02] MEDS: MYCOPHENOLATE MOFETIL 250 MG CAP (J7517) PO SCH ×2 (06:09→20:14)
[2018-10-02] MEDS: (RENVELA) SEVELAMER **CARBONate** 800 MG TAB PO SCH ×3 (06:09→18:11)
[2018-10-02 07:06] LABS: HEMOGLOBIN 10.8 g/dl (12.0-15.5); MEAN CORPUSCULAR HGB CONC 29.2 g/dl (32.0-36.5); MEAN CORPUSCULAR VOLUME 109.8 fl (80.0-96.0); PLATELET COUNT, AUTOMATED 178 10^3/uL (150-450); RED BLOOD COUNT 3.37 10^6/uL (4.00-5.40); WHITE BLOOD COUNT 8.5 10^3/uL (4.0-10.0)
[2018-10-02 07:42] LABS: CALCIUM LEVEL 8.6 MG/DL (8.8-10.2); CREATININE FOR GFR 5.82 MG/DL (0.55-1.30); GLOMERULAR FILTRATION RATE 7.3 (>32); POTASSIUM SERUM 5.3 MEQ/L (3.5-5.1)
--- NOTE | 2018-10-02 10:07 | IPNPDOC ---
Subjective Date Seen The patient was seen on 10/02/18. Subjective Chief Complaint/HPI CHF exacerbation Events since last encounter Planned HD today. Nephro managing fluid-volume status Constitutional: Denies: Chills, Fever, Night Sweats Pulmonary: Denies: Dyspnea, Cough Cardiovascular: Denies: Chest Pain, Palpitations, Orthopnea, Paroxysmal Noc. Dyspnea, Edema, Lt Headedness Gastrointestinal: Denies: Nausea, Vomiting, Abdominal Pain, Diarrhea, Constipation Objective Physical Examination General Exam: Positive: Alert, Cooperative, No Acute Distress ENT Exam: Positive: Atraumatic Chest Exam: Positive: Rales (bibasilar), Diminished Heart Exam: Positive: Rate Normal, Normal S1, Normal S2, Murmurs Abdomen Exam: Positive: Soft Extremity Exam: Positive: Edema Skin Exam: Positive: Nl turgor and temperature Psych Exam: Positive: Mental status NL, Oriented x 3 Assessment /Plan Assessment 10/02 -- seen after dialysis, appears comfortable. She is on oxygen, and will need home O2 arranged prior to discharge. She gets MWF dialysis, likely DC tomorrow. -- CDT Problems (1) End stage renal disease on dialysis Status: Chronic Response to Treatment: Stable Discussed With: Waste Chopper (Dr. Parekh) Problem Text: 10/02/18: Nephrology following and managing fluid overload may have contributed to her dyspnea resulting in acute decompensation of chronic diastolic CHF with contribution from her pulmonary fibrosis. feels better this am, during dialysis session. (2) Hypoxia Status: Resolved Problem Text: weaned off of oxygen pulmonary fibrosis with possibly some contribution from acute decompensation of chronic diastolic CHF. (3) Pulmonary fibrosis Status: Chronic Problem Text: 10/02/18: patient has been weaned off of oxygen. Monitor for exertional hypoxia with pulmonary fibrosis and CHF. will likely need O2 for home. hypoxia likely due to combination of fibrosis plus some degree of chf worsening. how much will be revealed by dialysis. if getting to "dry weight" leaves her hypoxic then she will need home O2. (4) Diastolic congestive heart failure Status: Acute Response to Treatment: Improving Problem Text: 10/02/18: continues to improve. HD today. potential for DC home in 1-2 days. 10/01 improved, looks comfortable. acute on chronic. improving this am. Plan/VTE VTE Prophylaxis Ordered?: Yes Plan Anticipated Discharge: Home (goal is home on Tuesday am so she can attend her usual afternoon dialysis session. will need home O2 set up) VS, I&O, 24H, Fishbone Vital Signs/I&O Vital Signs Date Time Temp Pulse Resp B/P (MAP) Pulse Ox O2 Delivery O2 Flow Rate FiO2 10/02/18 08:00 1.0 10/02/18 06:02 96.0 74 16 163/74 (103) 100 09/29/18 23:26 Nasal Cannula I&O- Last 24 Hours up to 6 AM 10/02/18 06:00 Intake Total 1210 ml Output Total 0 ml Balance 1210 ml Laboratory Data 24H LABS Laboratory Tests 2 10/01/18 11:55: Anion Gap 11, Glomerular Filtration Rate 8.8L, Blood Urea Nitrogen 46#H, Creatinine 4.95#H, Sodium Level 134#L, Potassium Level 4.7, Chloride Level 100, Carbon Dioxide Level 23, Calcium Level 8.4L 10/02/18 06:48: Anion Gap 16, Glomerular Filtration Rate 7.3L, Blood Urea Nitrogen 60H, Creatinine 5.82H, Sodium Level 132L, Potassium Level 5.3H, Chloride Level 97L, Carbon Dioxide Level 19L, Calcium Level 8.6L, Nucleated Red Blood Cells % (auto) 0.0 CBC/BMP Laboratory Tests 10/01/18 11:55 Calcium Level 8.4 L 10/02/18 06:48 Calcium Level 8.6 L, Red Blood Count 3.37 L, Mean Corpuscular Volume 109.8 H, Mean Corpuscular Hemoglobin 32.0, Mean Corpuscular Hemoglobin Concent 29.2 L, Red Cell Distribution Width 21.4 H Ivonne DunnP Oct 02, 2018 10:07 IBRAHIMA HERNANDEZ DO Oct 02, 2018 23:37
[2018-10-02] MEDS ORDERED: HEPARIN 1,000 UNITS/ML 10ML VIAL (FOR RADIOLOGY& DIALYSIS ONLY) IV ONE (11:45)
[2018-10-02 16:00] VITALS: BP 147/75
--- NOTE | 2018-10-02 16:21 | ECGEPIP ---
[facility] - ED Test Date: 2018-09-29 Pat Name: ANI ROONEY Department: Room: [place] [address] Gender: Female Manager Drug: SHANNA : 1930 Requested By: Harika Simmons Order Number: [id number] Reading MD: Blanco Avila Measurements Intervals [place] Rate: 84 P: NC: 169 QRS: QRSD: 91 T: 5 QT: 370 QTc: 439 Interpretive Statements SINUS RHYTHM MARKED LEFT AXIS DEVIATION LVH by voltage POSSIBLE ANTERIOR MYOCARDIAL INFARCTION, OF INDETERMINATE AGE Similar to tracing done 08-28-18 Electronically Signed on 10-02-2018 16:21:21 EDT by Balnco Avila
[2018-10-02 21:07] VITALS: BP 113/55
[2018-10-03] MEDS: ACETAMINOPHEN TAB 650MG DOSE (2X325MG) PO PRN ×5 (03:20→20:19)
--- NOTE | 2018-10-03 05:49 | IPN ---
DATE OF VISIT: 10/02/2018 ]SUBJECTIVE: Janay is seen and examined this morning in the hemodialysis unit receiving her maintenance treatment. She denies any complaints or overnight events. PHYSICAL EXAMINATION: Vital signs: Temperature 97.4, pulse 78, respiratory rate 18, blood pressure 147/75, saturating 100% on 2 liters nasal cannula. Intake yesterday was 1100, dialysis today removed 1700, weight in the bed scale today is not recorded. General: The patient is seen in the hemodialysis unit. She is an elderly female, frail, awake, alert and oriented in no distress. HEENT: Extraocular muscles are intact. Tongue is moist. Neck: Neck is supple. Jugular veins are not elevated. Heart: Heart sounds are regular S1-S2. Lungs: Harsh sounding breath sounds bilaterally but no rales. There is no accessory muscle use and no tachypnea. Abdomen: Soft and nontender. There are bowel sounds. Extremities: The right upper extremity fistula is presently in use. The lower extremities show pitting edema up to the ankles bilaterally. There is no edema in the dependent area. Neurologic: Oriented times three, at baseline mentation. No focal deficit. LABORATORY DATA: White count 8.5, hemoglobin 10.8, platelet 178, sodium 132, potassium 5.3, bicarbonate 19. INPATIENT MEDICATIONS: Reviewed by myself and no change from prior. PROBLEMS: 1. End-stage renal disease on hemodialysis on a Tuesday, Tuesday, Tuesday schedule. She has been hypoxic and has been moderately volume overloaded. She did receive an extra treatment on Tuesday of this week and is dialyzed again today with 1700 mL of fluid removed. She continues on midodrine for chronic hypotension of hemodialysis. She is symptomatically improving and her oxygen saturations have improved. Next dialysis will be on Tuesday likely as an outpatient. 2. Hypoxia multifactorial likely related to pulmonary fibrosis and hypervolemia/congestive heart failure exacerbation. She will had dialysis on Tuesday, Tuesday and today. Her volume status has improved but she complains of dyspnea with even mild to moderate exertion likely because of underlying pulmonary fibrosis and she is pending home oxygen set up prior to discharge. 3. Diastolic congestive heart failure. Volume status is improved with extra dialysis. She continues with moderate fluid restriction. Continue midodrine for chronic hypotension of hemodialysis. We will adjust her dry weight in the outpatient dialysis unit. 4. Anemia related to chronic renal failure. Hemoglobin is optimal and no intervention is needed at present. 5. Hyperkalemia. This will improve with dialysis treatment today.
[2018-10-03 05:59] VITALS: BP 139/72
[2018-10-03 06:40] LABS: BASO # 0.1 10^3/uL (0.0-0.2); BASO % 0.7 % (0.0-1.0); EOS # 0.1 10^3/uL (0.0-0.50); EOS % 1.2 % (0.0-3.0); HEMATOCRIT 35.3 % (36.0-47.0); HEMOGLOBIN 10.6 g/dl (12.0-15.5); LYMPH # 0.7 10^3/uL (1.5-4.5); MEAN CORPUSCULAR HEMOGLOBIN 31.8 pg (27.0-33.0); MONO # 0.8 10^3/uL (0.0-0.8); MONO % 9.7 % (0.0-5.0); NEUTROPHILS # 6.2 10^3/uL (1.8-7.7); NEUTROPHILS % 76.2 % (36.0-66.0); PLATELET COUNT, AUTOMATED 183 10^3/uL (150-450); RED BLOOD COUNT 3.33 10^6/uL (4.00-5.40); WHITE BLOOD COUNT 8.2 10^3/uL (4.0-10.0)
[2018-10-03 07:09] LABS: CALCIUM LEVEL 8.6 MG/DL (8.8-10.2); CREATININE FOR GFR 4.26 MG/DL (0.55-1.30); GLOMERULAR FILTRATION RATE 10.5 (>32); POTASSIUM SERUM 4.5 MEQ/L (3.5-5.1)
[2018-10-03] MEDS: APIXABAN 2.5 MG TAB (ELIQUIS) PO SCH ×2 (08:37→20:18)
[2018-10-03] MEDS: MEGESTROL 40 MG TAB PO SCH (08:38)
[2018-10-03] MEDS: predniSONE 10 MG TAB PO SCH (08:38)
[2018-10-03] MEDS: MIDODRINE 5 MG TAB PO SCH ×3 (08:38→16:09)
[2018-10-03] MEDS: MYCOPHENOLATE MOFETIL 250 MG CAP (J7517) PO SCH ×2 (08:38→20:18)
[2018-10-03] MEDS: (RENVELA) SEVELAMER **CARBONate** 800 MG TAB PO SCH ×3 (08:38→17:40)
[2018-10-03 10:00] VITALS: BP 130/62
--- NOTE | 2018-10-03 12:51 | IPN ---
DATE OF SERVICE: . SUBJECTIVE: Janay is seen and examined this morning at the bedside. She is pending to work with physical therapy. Denies any acute overnight events or issues, tolerated hemodialysis yesterday with 1.7 liters of fluid removed. VITAL SIGNS: Temperature 98.0, pulse 90, respiratory rate 18, blood pressure 130/62, saturating 100% on 2 liters nasal cannula. Intake yesterday was 910. Dialysis yesterday removed 1700. Urine output 150, net negative 940. Weight on the bed scale today is not recorded. GENERAL: Patient is seen lying in bed, elderly female frail, awake, alert, oriented, comfortable, in no acute distress. Extraocular muscles are intact. Tongue is moist. Neck is supple. Jugular veins are not elevated. Heart sounds are regular, S1-S2. Lungs show harsh sounding breath sounds bilaterally with Velcro like crackles at the bases. There is no accessory muscle use and no tachypnea. She is seen on nasal cannula. Abdomen is soft and nontender. There are bowel sounds. The right upper extremity fistula is patent with thrill and bruit. The lower extremities show minimal pedal edema, which is chronic and is significantly improved from prior. There is no edema in the dependent areas. Neurologic: She is oriented times three at baseline mentation. No focal deficits. LABS: White count 8.2, hemoglobin 10.6, sodium 136, potassium 4.5. Inpatient medications reviewed by myself and no change from prior. PROBLEMS: 1. End-stage renal disease on hemodialysis on Tuesday, Tuesday, Tuesday schedule. She received extra treatment over the weekend. She has had significant fluid removed. Her volume status has improved. Her hypoxia has improved. She continues on midodrine for chronic hypotension of hemodialysis. Next dialysis treatment will be on Tuesday. 2. Hypoxia, multifactorial, likely related to pulmonary fibrosis and hypervolemia/congestive heart failure with end-stage renal disease. She was dialyzed on Tuesday, Tuesday and Tuesday. Her volume status has improved nicely. Her peripheral edema is minimal. She continues to have dyspnea with even mild to moderate exertion, likely due to underlying pulmonary fibrosis and she is pending home oxygen set up prior to discharge. 3. Diastolic congestive heart failure, volume status is improved. She continues with moderate fluid restriction. Continue midodrine for chronic hypotension of hemodialysis. We will decrease her estimated dry weight in the outpatient hemodialysis unit. 4. Anemia related to chronic renal failure. Hemoglobin is optimal and no intervention is needed at present.
[2018-10-03 14:00] VITALS: BP 161/73
--- NOTE | 2018-10-03 16:17 | IPNPDOC ---
Subjective Date Seen The patient was seen on 10/03/18. Subjective Chief Complaint/HPI No complaints. Constitutional: Denies: Chills, Fever Pulmonary: Denies: Dyspnea, Cough Cardiovascular: Denies: Chest Pain Gastrointestinal: Denies: Nausea, Vomiting, Abdominal Pain, Diarrhea, Constipation Objective Physical Examination General Exam: Positive: Alert, Cooperative, No Acute Distress ENT Exam: Positive: Atraumatic Chest Exam: Positive: Clear to auscultation, Normal air movement, Diminished Heart Exam: Positive: Rate Normal, Normal S1, Normal S2, Murmurs Abdomen Exam: Positive: Soft Extremity Exam: Positive: Edema Skin Exam: Positive: Nl turgor and temperature Psych Exam: Positive: Mental status NL, Oriented x 3 Assessment /Plan Problems (1) Diastolic congestive heart failure Status: Acute Response to Treatment: Improving Problem Text: 10/03 - Fluid status improved after dialysis yesterday - still requiring oxygen and will likely need this upon d/c home 10/02/18: continues to improve. HD today. potential for DC home in 1-2 days. 10/01 improved, looks comfortable. acute on chronic. improving this am. (2) End stage renal disease on dialysis Status: Chronic Response to Treatment: Stable Discussed With: Tester Regulator (Dr. Parekh) Problem Text: 10/03 - Will go back on usual dialysis schedule M/W/F 10/02/18: Nephrology following and managing fluid overload may have contributed to her dyspnea resulting in acute decompensation of chronic diastolic CHF with contribution from her pulmonary fibrosis. feels better this am, during dialysis session. (3) Hypoxia Status: Chronic Problem Text: 10/03 - still requiring oxygen - will plan to have this at home upin d/c pulmonary fibrosis with possibly some contribution from acute decompensation of chronic diastolic CHF. (4) Pulmonary fibrosis Status: Chronic Problem Text: 10/02/18: patient has been weaned off of oxygen. Monitor for exertional hypoxia with pulmonary fibrosis and CHF. will likely need O2 for home. hypoxia likely due to combination of fibrosis plus some degree of chf worsening. how much will be revealed by dialysis. if getting to "dry weight" leaves her hypoxic then she will need home O2. Plan/VTE VTE Prophylaxis Ordered?: Yes Plan Anticipated Discharge: Home (goal is home on Tuesday am so she can attend her usual afternoon dialysis session. will need home O2 set up) Disposition Not safe for discharge yet - d/c tomorrow if safe before dialysis otherwise will d/c VS, I&O, 24H, [facility] Vital Signs/I&O Vital Signs Date Time Temp Pulse Resp B/P (MAP) Pulse Ox O2 Delivery O2 Flow Rate FiO2 10/03/18 14:00 98.1 73 18 161/73 (102) 100 2.0 09/29/18 23:26 Nasal Cannula I&O- Last 24 Hours up to 6 AM0 10/03/18 06:00 Intake Total 570 ml Output Total 1850 ml Balance -1280 ml Laboratory Data 24H LABS Laboratory Tests 2 10/03/18 06:05: Immature Granulocyte % (Auto) 4.2H, White Blood Count 8.2, Red Blood Count 3.33L, Hemoglobin 10.6L, Hematocrit 35.3L, Mean Corpuscular Volume 106.0H, Mean Corpuscular Hemoglobin 31.8, Mean Corpuscular Hemoglobin Concent 30.0L, Red Cell Distribution Width 21.6H, Platelet Count 183, Neutrophils (%) (Auto) 76.2H, Lymphocytes (%) (Auto) 8.0L, Monocytes (%) (Auto) 9.7H, Eosinophils (%) (Auto) 1.2, Basophils (%) (Auto) 0.7, Neutrophils # (Auto) 6.2, Lymphocytes # (Auto) 0.7L, Monocytes # (Auto) 0.8, Eosinophils # (Auto) 0.1, Basophils # (Auto) 0.1, Nucleated Red Blood Cells % (auto) 0.0, Anion Gap 7L, Glomerular Filtration Rate 10.5L, Blood Urea Nitrogen 38H, Creatinine 4.26H, Sodium Level 136, Potassium Level 4.5, Chloride Level 99, Carbon Dioxide Level 30, Calcium Level 8.6L CBC/BMP Laboratory Tests 10/03/18 06:05 Red Blood Count 3.33 L, Mean Corpuscular Volume 106.0 H, Mean Corpuscular Hemoglobin 31.8, Mean Corpuscular Hemoglobin Concent 30.0 L, Red Cell Distribution Width 21.6 H, Neutrophils (%) (Auto) 76.2 H, Lymphocytes (%) (Auto) 8.0 L, Monocytes (%) (Auto) 9.7 H, Eosinophils (%) (Auto) 1.2, Basophils (%) (Auto) 0.7, Neutrophils # (Auto) 6.2, Lymphocytes # (Auto) 0.7 L, Monocytes # (Auto) 0.8, Eosinophils # (Auto) 0.1, Basophils # (Auto) 0.1, Calcium Level 8.6 L JONELLE JAMES PA-C Oct 03, 2018 16:17
[2018-10-03 18:00] VITALS: BP 119/49
[2018-10-03 22:00] VITALS: BP 148/78
[2018-10-04] MEDS: ACETAMINOPHEN TAB 650MG DOSE (2X325MG) PO PRN ×5 (00:27→20:03)
[2018-10-04 02:00] VITALS: BP 139/68
[2018-10-04] MEDS: MEGESTROL 40 MG TAB PO SCH (05:37)
[2018-10-04] MEDS: MYCOPHENOLATE MOFETIL 250 MG CAP (J7517) PO SCH ×2 (05:37→20:02)
[2018-10-04] MEDS: MIDODRINE 5 MG TAB PO SCH ×3 (05:38→15:51)
[2018-10-04] MEDS: predniSONE 10 MG TAB PO SCH (05:38)
[2018-10-04] MEDS: (RENVELA) SEVELAMER **CARBONate** 800 MG TAB PO SCH ×3 (05:38→17:40)
[2018-10-04] MEDS: APIXABAN 2.5 MG TAB (ELIQUIS) PO SCH ×2 (05:38→20:02)
[2018-10-04 06:00] VITALS: BP 143/72
[2018-10-04 07:09] LABS: BASO % 0.4 % (0.0-1.0); EOS # 0.1 10^3/uL (0.0-0.50); EOS % 1.1 % (0.0-3.0); HEMATOCRIT 34.4 % (36.0-47.0); HEMOGLOBIN 10.1 g/dl (12.0-15.5); LYMPH # 0.6 10^3/uL (1.5-4.5); LYMPH % 7.6 % (24.0-44.0); MEAN CORPUSCULAR HEMOGLOBIN 30.8 pg (27.0-33.0); MEAN CORPUSCULAR HGB CONC 29.4 g/dl (32.0-36.5); MEAN CORPUSCULAR VOLUME 104.9 fl (80.0-96.0); MONO # 0.8 10^3/uL (0.0-0.8); MONO % 9.7 % (0.0-5.0); NEUTROPHILS # 6.2 10^3/uL (1.8-7.7); NEUTROPHILS % 78.4 % (36.0-66.0); PLATELET COUNT, AUTOMATED 203 10^3/uL (150-450); RED BLOOD COUNT 3.28 10^6/uL (4.00-5.40); WHITE BLOOD COUNT 7.9 10^3/uL (4.0-10.0)
[2018-10-04 07:24] LABS: CALCIUM LEVEL 8.5 MG/DL (8.8-10.2); CREATININE FOR GFR 5.41 MG/DL (0.55-1.30); POTASSIUM SERUM 4.7 MEQ/L (3.5-5.1)
--- NOTE | 2018-10-04 08:55 | IPNPDOC ---
Subjective Date Seen The patient was seen on 10/04/18. Subjective Chief Complaint/HPI No complaints - feels well. Denies Dyspnea Constitutional: Denies: Chills, Fever Pulmonary: Denies: Dyspnea, Cough Cardiovascular: Denies: Chest Pain, Palpitations Gastrointestinal: Denies: Nausea, Vomiting, Abdominal Pain, Diarrhea, Constipation Objective Physical Examination General Exam: Positive: Alert, Cooperative, No Acute Distress ENT Exam: Positive: Atraumatic Chest Exam: Positive: Clear to auscultation, Normal air movement, Diminished Heart Exam: Positive: Rate Normal, Normal S1, Normal S2, Murmurs Abdomen Exam: Positive: Soft Extremity Exam: Positive: Edema (trace ankle edema BL) Skin Exam: Positive: Nl turgor and temperature Psych Exam: Positive: Mental status NL, Oriented x 3 Assessment /Plan Problems (1) Diastolic congestive heart failure Status: Acute Response to Treatment: Improving Problem Text: 10/04 - appears fairly well compensated - Plan for dialysis today. Cont Oxygen 10/03 - Fluid status improved after dialysis yesterday - still requiring oxygen and will likely need this upon d/c home 10/02/18: continues to improve. HD today. potential for DC home in 1-2 days. 10/01 improved, looks comfortable. acute on chronic. improving this am. (2) End stage renal disease on dialysis Status: Chronic Response to Treatment: Stable Discussed With: Medical Doctor Md/Medical Director (Dr. Parekh) Problem Text: 10/03 - Will go back on usual dialysis schedule M/W/F 10/02/18: Nephrology following and managing fluid overload may have contributed to her dyspnea resulting in acute decompensation of chronic diastolic CHF with contribution from her pulmonary fibrosis. feels better this am, during dialysis session. (3) Hypoxia Status: Chronic Problem Text: 10/03 - still requiring oxygen - will plan to have this at home upin d/c pulmonary fibrosis with possibly some contribution from acute decompensation of chronic diastolic CHF. (4) Pulmonary fibrosis Status: Chronic Problem Text: 10/02/18: patient has been weaned off of oxygen. Monitor for exertional hypoxia with pulmonary fibrosis and CHF. will likely need O2 for home. hypoxia likely due to combination of fibrosis plus some degree of chf worsening. how much will be revealed by dialysis. if getting to "dry weight" leaves her hy poxic then she will need home O2. Plan/VTE VTE Prophylaxis Ordered?: Yes Plan Anticipated Discharge: Home (goal is home on Tuesday am so she can attend her usual afternoon dialysis session. will need home O2 set up) Disposition Likely will be safe for d/c home tomorrow per PT VS, I&O, 24H, [facility] Vital Signs/I&O Vital Signs Date Time Temp Pulse Resp B/P (MAP) Pulse Ox O2 Delivery O2 Flow Rate FiO2 10/04/18 06:00 97.2 81 18 143/72 (95) 100 2.0 09/29/18 23:26 Nasal Cannula I&O- Last 24 Hours up to 6 AM 10/04/18 06:00 Intake Total 510 ml Output Total 270 ml Balance 240 ml Laboratory Data 24H LABS Laboratory Tests 2 10/04/18 06:29: Immature Granulocyte % (Auto) 2.8, White Blood Count 7.9, Red Blood Count 3.28L, Hemoglobin 10.1L, Hematocrit 34.4L, Mean Corpuscular Volume 104.9H, Mean Corpuscular Hemoglobin 30.8, Mean Corpuscular Hemoglobin Concent 29.4L, Red Cell Distribution Width 21.2H, Platelet Count 203, Neutrophils (%) (Auto) 78.4H, Lymphocytes (%) (Auto) 7.6L, Monocytes (%) (Auto) 9.7H, Eosinophils (%) (Auto) 1.1, Basophils (%) (Auto) 0.4, Neutrophils # (Auto) 6.2, Lymphocytes # (Auto) 0.6L, Monocytes # (Auto) 0.8, Eosinophils # (Auto) 0.1, Basophils # (Auto) 0.0, Nucleated Red Blood Cells % (auto) 0.0, Anion Gap 12, Glomerular Filtration Rate 8.0L, Blood Urea Nitrogen 55H, Creatinine 5.41H, Sodium Level 137, Potassium Level 4.7, Chloride Level 98, Carbon Dioxide Level 27, Calcium Level 8.5L CBC/BMP Laboratory Tests 10/04/18 06:29 Red Blood Count 3.28 L, Mean Corpuscular Volume 104.9 H, Mean Corpuscular Hemoglobin 30.8, Mean Corpuscular Hemoglobin Concent 29.4 L, Red Cell Distri bution Width 21.2 H, Neutrophils (%) (Auto) 78.4 H, Lymphocytes (%) (Auto) 7.6 L, Monocytes (%) (Auto) 9.7 H, Eosinophils (%) (Auto) 1.1, Basophils (%) (Auto) 0.4, Neutrophils # (Auto) 6.2, Lymphocytes # (Auto) 0.6 L, Monocytes # (Auto) 0.8, Eosinophils # (Auto) 0.1, Basophils # (Auto) 0.0, Calcium Level 8.5 L JONELLE JAMES PA-C Oct 04, 2018 08:55
[2018-10-04] MEDS ORDERED: DARBEPOETIN 100 MCG/0.5 ML *DIALYSIS* SYRINGE (J0882) IV SCH (09:45)
[2018-10-04] MEDS ORDERED: HEPARIN 1,000 UNITS/ML 10ML VIAL (FOR RADIOLOGY& DIALYSIS ONLY) IV ONE (11:30)
[2018-10-04 12:00] VITALS: BP 162/83
[2018-10-04 18:00] VITALS: BP 108/55
--- NOTE | 2018-10-04 20:34 | IPN ---
DATE: 10/04/2018 SUBJECTIVE: The patient is seen and examined this morning in the hemodialysis unit receiving her maintenance treatment, tolerating without any issues and denies any complaints. Vital signs: Temperature 97.8, pulse 88, respiratory rate 18, blood pressure 108/55, saturating 100% on 2 liters nasal cannula. Intake yesterday was not fully recorded, dialysis today removed 1600, weight in the bed scale today is not recorded. General: The patient is awake, alert, oriented, in no acute distress. Extraocular muscles are intact. Tongue is moist. Neck is supple. Jugular veins are not elevated heart sounds are regular S1-S2. There is pedal edema and ankle edema bilaterally. Lungs show somewhat coarse air movement with Velcro like crackles at the bases. Abdomen is soft and nontender. There are bowel sounds. The right upper extremity fistula is presently in use. There is no edema in the dependent areas. Neurologic: She is at baseline mentation oriented x3. No focal deficits. LABORATORY DATA: White count 7.9, hemoglobin 10.1, platelet 203, sodium 137, potassium 4.7, bicarbonate 27. Inpatient medications reviewed by myself. She was started on weekly Aranesp 100 mcg. Remainder medications are unchanged from prior. PROBLEMS: 1. End-stage renal disease on hemodialysis on Tuesday, Tuesday, Tuesday schedule. The patient continues on her usual schedule. She received an extra treatment over the weekend. Her volume status has improved symptomatically. Her shortness of breath has improved as well. She continues on midodrine for chronic hypotension of hemodialysis. Next dialysis treatment will be on Tuesday. 2. Hypoxia multifactorial likely related to pulmonary fibrosis and decompensated congestive heart failure and end-stage renal disease. She was dialyzed on Tuesday. She did receive an extra dialysis treatment this weekend. Her volume status has improved nicely Her peripheral edema is minimal. She continues to have dyspnea with exertion and does have underlying pulmonary fibrosis and is pending home oxygen set up. 3. Diastolic congestive heart failure volume status is improved. She continues on moderate fluid restriction. Continue midodrine for chronic hypotension of hemodialysis. I will plan to do another additional dialysis session this week to stay on top of her fluid status and that can be done as an outpatient. 3. Anemia related to chronic renal failure. She continues on weekly Aranesp.
[2018-10-04 22:00] VITALS: BP 131/65
[2018-10-05] MEDS: ACETAMINOPHEN TAB 650MG DOSE (2X325MG) PO PRN ×3 (01:22→10:31)
[2018-10-05 02:00] VITALS: BP 136/72
[2018-10-05 06:00] VITALS: BP 139/73
[2018-10-05 06:54] LABS: BASO % 0.5 % (0.0-1.0); EOS # 0.1 10^3/uL (0.0-0.50); EOS % 0.8 % (0.0-3.0); HEMATOCRIT 37.3 % (36.0-47.0); HEMOGLOBIN 11.2 g/dl (12.0-15.5); LYMPH # 0.6 10^3/uL (1.5-4.5); LYMPH % 7.1 % (24.0-44.0); MEAN CORPUSCULAR HEMOGLOBIN 32.6 pg (27.0-33.0); MEAN CORPUSCULAR VOLUME 108.4 fl (80.0-96.0); MONO # 0.8 10^3/uL (0.0-0.8); MONO % 9.7 % (0.0-5.0); NEUTROPHILS # 6.8 10^3/uL (1.8-7.7); NEUTROPHILS % 79.8 % (36.0-66.0); PLATELET COUNT, AUTOMATED 192 10^3/uL (150-450); RED BLOOD COUNT 3.44 10^6/uL (4.00-5.40); WHITE BLOOD COUNT 8.5 10^3/uL (4.0-10.0)
[2018-10-05 07:07] LABS: CALCIUM LEVEL 9.2 MG/DL (8.8-10.2); CREATININE FOR GFR 3.68 MG/DL (0.55-1.30); GLOMERULAR FILTRATION RATE 12.4 (>32); POTASSIUM SERUM 4.2 MEQ/L (3.5-5.1)
[2018-10-05] MEDS: MYCOPHENOLATE MOFETIL 250 MG CAP (J7517) PO SCH (08:57)
[2018-10-05] MEDS: (RENVELA) SEVELAMER **CARBONate** 800 MG TAB PO SCH ×2 (08:58→11:39)
[2018-10-05] MEDS: MEGESTROL 40 MG TAB PO SCH (08:58)
[2018-10-05] MEDS: APIXABAN 2.5 MG TAB (ELIQUIS) PO SCH (08:58)
[2018-10-05] MEDS: predniSONE 10 MG TAB PO SCH (08:58)
[2018-10-05] MEDS: MIDODRINE 5 MG TAB PO SCH ×2 (08:58→11:39)
[2018-10-05 11:15] VITALS: BP 168/77
[2018-10-05 11:17] VITALS: BP 144/60
--- NOTE | 2018-10-05 19:22 | IPN ---
DATE: 10/05/2018 SUBJECTIVE: The patient was seen and examined this morning. She is currently lying in bed. She has no complaints. She denies any shortness of breath. OBJECTIVE: VITAL SIGNS: Temperature 98.3, pulse 95, respiratory rate 22, blood pressure 139/73, pulse oximetry 100% on 2 liters nasal cannula. GENERAL: Patient is awake, alert, and oriented. She does not appear in acute distress. She is lying comfortably in bed. She is on 2 liters nasal cannula at her baseline. CARDIOVASCULAR: Normal S1, S2. No clicks, rubs, or murmurs. Regular rate and rhythm. HEENT: Eyes are nonicteric. Trachea is midline. No jugular venous distention noted. PULMONARY: Clear vesicular breath sounds bilaterally. No wheezes, rhonchi, or rales. Good respiratory effort. ABDOMEN: Soft, nontender, nondistended. Positive bowel sounds throughout. EXTREMITIES: No clubbing or cyanosis. There are 2+ radial and posterior tibialis pulses bilaterally. Trace edema of bilateral lower extremities. PSYCHIATRIC: Mood and affect appear appropriate. LABORATORY DATA: White blood cells 8.5, hemoglobin 11.2, hematocrit 37.3, platelet count 192. Chemistries: Sodium 137, potassium 4.2, chloride 99, carbon dioxide 28, BUN 30, creatinine 3.68, fasting glucose 86. Calcium 9.2. ASSESSMENT AND PLAN: 1. End-stage renal disease, on hemodialysis Tuesday, Tuesday, Tuesday. Patient received hemodialysis yesterday per her normal schedule. Her volume status has improved. Her shortness of breath has subsequently improved as well. She is continued on midodrine for her chronic hypotension of hemodialysis. Her next dialysis treatment will be Tuesday. Patient is pending discharge. She will receive her further dialysis as an outpatient at the hemodialysis center. 2. Hypoxia, multifactorial secondary to pulmonary fibrosis and decompensated congestive heart failure and end-stage renal disease. Patient has been dialyzed throughout her hospital stay. She has adequate volume status currently. Her next dialysis treatment is on Tuesday. Her peripheral edema is minimal. She continues to have minimal dyspnea. She is currently on 2 liters of nasal cannula, which is at her baseline. She does have underlying pulmonary fibrosis. 3. Diastolic congestive heart failure with improved volume status. Patient continues on moderate fluid restriction. She is on midodrine for her chronic hypotension with dialysis. She is due for another dialysis session on Tuesday. Her fluid status at this point is adequate. 4. Anemia, related to chronic renal failure. Patient received weekly Aranesp during dialysis. My faculty preceptor for this patient encounter was physically present during the encounter and was fully available. All aspects of the patient interview, examination, medical decision making process, and medical care plan development were reviewed and approved by the faculty preceptor. The faculty preceptor is aware and concurs with the plan as stated in the body of this note and will attest to such by his/her co-signature. LISA
--- NOTE | 2018-10-06 08:17 | DSES ---
DATE OF ADMISSION: 09/29/2018 DATE OF DISCHARGE: 10/05/2018 BRIEF HISTORY AND PHYSICAL: The patient is an 88-year-old patient of per Dr. Meek's with a history of chronic end-stage renal disease, on dialysis, who presented with shortness of breath and decompensated congestive heart failure. PAST MEDICAL HISTORY: Significant for: 1. Hypotension, which is chronic. 2. Congestive heart failure. 3. History of deep vein thrombosis (DVT), on Eliquis. 4. End-stage renal disease, on hemodialysis. 5. Pulmonary fibrosis. PERTINENT LABORATORIES ON ADMISSION: White count 8.5, hemoglobin 10.9, platelets 205,000. Sodium 142, potassium 4.1, BUN 22, creatinine 2.7, glucose 117. Chest x-ray showed interstitial lung disease and linear fibrosis in the left base, unchanged. No acute abnormality. HOSPITAL COURSE: The patient was admitted for decompensated diastolic congestive heart failure in the setting of end-stage renal disease in a patient on hemodialysis. Nephrology was consulted. Apparently it has been difficult to aggressively remove fluid during her hemodialysis treatments due to chronic hypotension of hemodialysis despite the use of midodrine three times a day, and sometimes her treatment sessions have to be cut short due to hypotension. Nephrology followed her and has been directing her dialysis and removing fluid throughout her dialysis sessions. Gradually her fluid status and respiratory status improved. She will be discharged on oxygen chronically, 2 liters nasal cannula, and she will be due for her next dialysis session tomorrow, which is Tuesday. She may also undergo additional dialysis over the weekend, but this decision will be deferred to nephrology. 2. Hypoxemia. This is multifactorial, likely related to pulmonary fibrosis and decompensated congestive heart failure with end-stage renal disease. Respiratory status has improved with fluid removal and dialysis; however, she does have some chronic underlying dyspnea and hypoxemia, for which she will be requiring chronic oxygen and be discharged home with this. 3. History of deep vein thrombosis (DVT). She is on her usual dose of Eliquis, and hemoglobin has been stable. 4. Chronic hypotension of hemodialysis. She remains on midodrine. 5. Anemia of chronic kidney disease. Hemoglobin has been stable. It is 11.2 on the date of discharge. She receives Aranesp through nephrology as needed. DISPOSITION: She is stable for discharge. Followup with Dr. Dick next week. Followup with nephrology per their office. Dialysis Tuesday, Wednesdays, and Fridays. She may get some extra dialysis over the weekend for further fluid removal. She will go home with oxygen 2 liters nasal cannula. MEDICATIONS: Unchanged from those prior to admission and include: - acetaminophen 325 mg two tablets every 4 hours as needed for pain - Eliquis 2.5 mg twice a day - vitamin D 1000 international units daily - megestrol 10 mg daily - midodrine 5 mg three times a day - mycophenolate mofetil 500 mg twice a day - ondansetron 4 mg every 8 hours as needed for nausea - prednisone 10 mg daily - ranitidine one tablet as needed for indigestion - Renvela 800 mg three times a day DISCHARGE DIAGNOSES: 1. Acute on chronic diastolic congestive heart failure. 2. End-stage renal disease. 3. Chronic hypotension of hemodialysis. 4. Hypoxemia. 5. Pulmonary fibrosis. 6. History deep vein thrombosis (DVT), on anticoagulation.
== END 2018-10-05 14:10 | disposition home health service (06) | DRG 291 ==
LOC: M ED 18:09 → M ED INP 23:37 → M MS5PR 10-01 16:00
PROVIDERS: ADMIT Internal Medicine; ATTEND Family Medicine
PROC: 5A1D70Z Performance of Urinary Filtration, Intermittent, Less than 6 Hours Per Day (ICD-10-PCS; principal; 2018-09-30)
DX: I50.33 Acute on chronic diastolic (congestive) heart failure (principal); N18.6 End stage renal disease; N25.81 Secondary hyperparathyroidism of renal origin; M31.31 Wegener's granulomatosis with renal involvement; J84.10 Pulmonary fibrosis, unspecified; K58.9 Irritable bowel syndrome, unspecified; I95.3 Hypotension of hemodialysis; R09.02 Hypoxemia; D63.1 Anemia in chronic kidney disease; Z66 Do not resuscitate; Z86.718 Personal history of other venous thrombosis and embolism; Z79.01 Long term (current) use of anticoagulants; Z79.52 Long term (current) use of systemic steroids; Z79.899 Other long term (current) drug therapy; Z99.2 Dependence on renal dialysis; Z88.1 Allergy status to other antibiotic agents; Z88.2 Allergy status to sulfonamides; Z88.5 Allergy status to narcotic agent; Z88.8 Allergy status to other drugs, medicaments and biological substances; Z90.49 Acquired absence of other specified parts of digestive tract; Z90.710 Acquired absence of both cervix and uterus

== ENCOUNTER 2018-10-22 08:17 | Inpatient (IN) | payer MEDICARE, MEDICAID ==
[~2018-10-22] VITALS: Ht 149.9 cm; Wt 50.6 kg
[~2018-10-22 08:17] MED LIST changes: +ACET1TAB55 PO; +MIDO5TA PO
[2018-10-22] MEDS ORDERED: ACETAMINOPHEN 325 MG TAB PO ONE (08:45)
--- NOTE | 2018-10-22 08:53 | REP ---
Clinical: Trauma . Findings: Atrophy with periventricular leukomalacia and microvascular ischemic changes are appreciated. The ventricles and sulci are symmetric. Lawton-white differentiation is maintained. There is no evidence for acute intracranial hemorrhage, mass/mass effect, pathology or infarction. No extra-axial fluid collection. Calvarium is intact. Paranasal sinuses and mastoid air cells are clear. Atherosclerotic disease involving the visualized carotid arteries. Impression: Age related atrophy and microvascular ischemic changes. No acute intracranial hemorrhage, infarction, or mass/mass effect. Electronically Signed by Evaristo Flores MD 10/22/2018 08:44 A
--- NOTE | 2018-10-22 09:19 | REP ---
Clinical: Trauma. Technique: AP, lateral, bilateral oblique views of the right ankle. Findings: Extensive age-related osteopenia and diffuse arthritic degenerative changes are appreciated and limit evaluation. Vascular calcifications are identified along with calcified granulomata and soft tissue calcifications superficial to the posterior calcaneus and within the plantar fascia. Diffuse soft tissue swelling noted. No obvious acute fracture or dislocation. Impression: Swelling. Extensive osteopenia and degenerative changes. No obvious acute fracture dislocation. Electronically Signed by Evaristo Flores MD 10/22/2018 09:10 A
--- NOTE | 2018-10-22 09:21 | REP ---
Clinical: Trauma. Technique: AP and lateral. Findings: Evaluation is limited by technique and poor inspiratory effort along with underpenetration. Findings appear relatively stable as compared to 09/03/2018. No focal consolidation, obvious effusion, or pneumothorax. Skeletal structures demonstrate advanced age-related osteopenia and degenerative changes including multiple chronic-appearing compression deformities through the thoracic spine. Impression: Chronic stable changes suggested. Electronically Signed by Evaristo Flores MD 10/22/2018 09:12 A
--- NOTE | 2018-10-22 09:22 | REP ---
Clinical: Trauma. Technique: AP, lateral, bilateral oblique views of the right foot. Findings: Advanced osteopenia and degenerative changes along with extensive peripheral vascular disease and scattered soft tissue calcifications somewhat limit evaluation. Soft tissue swelling at the ankle noted. No obvious acute fracture or dislocation. Impression: Limited by advanced degenerative changes as described above. No obvious acute fracture. Electronically Signed by Evaristo Flores MD 10/22/2018 09:14 A
[2018-10-22] MEDS ORDERED: DOCU-129 PO (10:14)
[2018-10-22 11:08] LABS: BASO % 0.3 % (0.0-1.0); EOS % 0.3 % (0.0-3.0); HEMATOCRIT 42.6 % (36.0-47.0); HEMOGLOBIN 12.5 g/dl (12.0-15.5); LYMPH # 0.4 10^3/uL (1.5-4.5); LYMPH % 3.2 % (24.0-44.0); MEAN CORPUSCULAR HEMOGLOBIN 32.7 pg (27.0-33.0); MEAN CORPUSCULAR HGB CONC 29.3 g/dl (32.0-36.5); MEAN CORPUSCULAR VOLUME 111.5 fl (80.0-96.0); MONO # 0.8 10^3/uL (0.0-0.8); MONO % 6.6 % (0.0-5.0); NEUTROPHILS # 10.6 10^3/uL (1.8-7.7); NEUTROPHILS % 88.1 % (36.0-66.0); PLATELET COUNT, AUTOMATED 135 10^3/uL (150-450); RED BLOOD COUNT 3.82 10^6/uL (4.00-5.40)
[2018-10-22 11:19] LABS: INR 1.04; PROTHROMBIN TIME 13.3 SECONDS (11.8-14.0)
[2018-10-22 11:36] LABS: ALBUMIN 4.3 GM/DL (3.2-5.2); BILIRUBIN,TOTAL 0.5 MG/DL (0.2-1.0); CALCIUM LEVEL 9.2 MG/DL (8.8-10.2); CREATININE FOR GFR 5.46 MG/DL (0.55-1.30); GLOMERULAR FILTRATION RATE 7.9 (>32); POTASSIUM SERUM 4.1 MEQ/L (3.5-5.1); TOTAL PROTEIN 7.1 GM/DL (6.4-8.2)
[2018-10-22] MEDS ORDERED: ONDANSETRON 4 MG ORAL DISINTEGRATING TAB (Q0162 PER 1MG) PO PRN (14:30)
[2018-10-22] MEDS: ACETAMINOPHEN TAB 650MG DOSE (2X325MG) PO PRN ×3 (14:42→22:25)
[2018-10-22] MEDS: predniSONE 10 MG TAB PO SCH (14:42)
[2018-10-22] MEDS: VITAMIN D 1,000 INTERNATIONAL UNITS TABLET PO SCH (14:42)
--- NOTE | 2018-10-22 15:03 | HPEPDOC ---
General Date of Admission Date of Service: Oct 22, 2018 Chief Complaint The patient is a 88-year-old female admitted with a reason for visit of Fall/Ankle And Back Pain. Source: Patient, Family Exam Limitations: No limitations History of Present Illness 88-year-old female with past medical history of chronic hypotension, congestive heart failure, DVT, end-stage renal disease on hemodialysis, pulmonary fibrosis presented from her senior housing for fall. Patient states that she was going from her bathroom to the bedrrom when suddenly her left leg gave out and she suffered a fall. Patient states that she has chronic nerve impingement and spinal stenosis for which no aggressive measures were recommended such as surgery. From time to time patient has leg weakness. Patient denied any loss of consciousness or chest pain or palpitations before the fall. Patient able to remember exactly how she fell. She was unable to get up after the fall and thus she called for help at the [facility] and was rushed to the ED. In the ED patient was found to have multiple contusions and bruises. Her right ankle was swollen and twisted. Patient also had bruises on her left leg and complained of left-sided flank pain on the side she fell on. Patient denies any fever, chills, nausea, vomiting, abdominal pain, chest pain. History obtained from patient with a good historian along with the patient niece was present at bedside. After both of them they realized that the patient is more and more dependent on others for her daily living and request retirement placement. In the ED vitals labs and vitals stable. Xray of rt ankle showed Diffuse soft tissue swelling noted. No obvious acute fracture or dislocation. CXR showed advanced age-related osteopenia and degenerative changes including multiple chronic-appearing compression deformities through the thoracic spine. Chronic stable changes suggested. CTH: Age related atrophy and microvascular ischemic changes. No acute intracranial hemorrhage, infarction, or mass/mass effect. Home Medications Scheduled Apixaban (Eliquis) 2.5 Mg Tablet, 2.5 MG PO BID, (Reported) Cholecalciferol (Vitamin D3) (Vitamin D3) 1,000 Unit Tab, 1,000 UNITS PO DAILY, (Reported) Megestrol Acetate (Megestrol Acetate) 20 Mg Tab, 20 MG PO DAILY, (Reported) Midodrine HCl (Midodrine HCl) 5 Mg Tablet, 5 MG PO TID, (Reported) Mycophenolate Mofetil (Mycophenolate Mofetil) 250 Mg Cap, 500 MG PO BID, (Reported) Prednisone (Prednisone) 10 Mg Tab, 10 MG PO DAILY, (Reported) Sevelamer Carbonate (Renvela) 800 Mg Tablet, 800 MG PO TID, (Reported) Scheduled PRN Acetaminophen (Acetaminophen) 325 Mg Tablet, 650 MG PO Q4H PRN for PAIN, (Repo rted) Docusate Sodium (Stool Softener) 100 Mg Capsule, 100 MG PO BID PRN for CO NSTIPATION, (Reported) Ondansetron (Ondansetron Odt) 4 Mg Tab, 4 MG PO Q8H PRN for NAUSEA, (Reported) Ranitidine HCl (Ranitidine HCl) 150 Mg Tablet, 1 TAB PO BID PRN for INDIGESTION, (Reported) Allergies Coded Allergies: Tetracyclines (Verified Allergy, Unknown, 09/29/18) codeine (Verified Allergy, Unknown, 09/29/18) fenofibrate (Verified Allergy, Unknown, 09/29/18) moxifloxacin (Verified Allergy, Unknown, 09/29/18) Cephalosporins (Verified Adverse Reaction, Mild, NAUSEA, 09/29/18) cefuroxime (Verified Adverse Reaction, Mild, NAUSEA, 09/29/18) morphine (Verified Adverse Reaction, Mild, CONFUSION , 09/29/18) sulfamethoxazole (Verified Adverse Reaction, Mild, NAUSEA, 09/29/18) trimethoprim (Verified Adverse Reaction, Mild, NAUSEA, 09/29/18) Social History * Smoker: Denies Alcohol: Denies Review of Systems Constitutional: Denies: Chills, Fever, Malaise, Night Sweats, Weakness, Fatigue, Weight Loss, Lethargy, Other Eyes: Denies: Pain, Vision change, Conjunctivae inflammation, Eyelid inflammation, Redness, Other ENT: Denies: Head Aches, Ear Pain, Dysphagia, Sinus Congestion, Post Nasal Drip, Sore Throat, Epistaxis, Other Symptoms Skin: Denies: Rash, Lesions, Jaundice, Bruising, Itching, Dry, Breakdown, Nail Changes, Other Pulmonary: Denies: Dyspnea, Cough, Pleuritic Chest Pain, Other Symptoms Cardiovascular: Denies: Chest Pain, Palpitations, Orthopnea, Paroxysmal Noc. Dyspnea, Edema, Lt Headedness, Other Symptoms Gastrointestinal: Denies: Nausea, Vomiting, Abdominal Pain, Diarrhea, Constipation, Melena, Hematochezia, Other Symptoms Genitourinary: Denies: Dysuria, Frequency, Incontinence, Hematuria, Retention, Other Symptoms Hematologic: Denies: Bruising, Bleeding Excessively, Petecchia, Purpura, Enlarged Lymph Nodes, Other Hematologic Endocrine: Denies: Polydipsia, Polyphagia, Polyuria, Heat Intolerance, Cold Intolerance, Other Endocrine Sx Musculoskeletal: Reports: Back Pain, Shoulder Pain, Arm Pain, Leg Pain, Joint Pain Neurological: Denies: Weakness, Numbness, Incoordination, Change in speech, Confusion, Seizures, Other Symptoms Psych: Denies: Mood Normal, Anxiety, Depression, Memory Issues, Thoughts of Self Harm, Anger, Thoughts of Harming Other, Other Psych Physical Examination Other physical findings GENERAL APPEARANCE: elderly frail female in no acute distress. VITAL SIGNS:reviewed HEENT: Normocephalic and atraumatic. No scleral icterus. PERRLA. Oropharynx is clear. Mouth revealed good dentition LUNGS: Breath sounds are equal and clear bilaterally. No wheezes, rhonchi, or rales. HEART: Regular rate and rhythm with normal S1 and S2. Loud systolic murmur ABDOMEN: Soft, flat, and benign. No mass, tenderness, guarding, or rebound. Bowel sounds are present. EXTREMITIES: No cyanosis, clubbing, or edema. NEUROLOGIC: No focal sensory or motor deficits are noted. Gait is normal. Cranial nerves II through XII are intact. PSYCHIATRIC: The patient is awake, alert, and oriented x3. Recent and remote memory is intact. Appropriate mood and affect. SKIN multiple bruises noted throughout her body especially on the left razo LYMPHATICS: No cervical, axillary, adenopathy is noted. Vital Signs Vital Signs Date Time Temp Pulse Resp B/P (MAP) Pulse Ox O2 Delivery O2 Flow Rate FiO2 10/22/18 12:30 80 164/74 (104) 99 Nasal Cannula 2.0 10/22/18 08:22 96.6 20 Laboratory Data Labs 24H Laboratory Tests 2 10/22/18 10:55: Immature Granulocyte % (Auto) 1.5, White Blood Count 12.0H, Red Blood Count 3.82L, Hemoglobin 12.5, Hematocrit 42.6, Mean Corpuscular Volume 111.5H, Mean Corpuscular Hemoglobin 32.7, Mean Corpuscular Hemoglobin Concent 29.3L, Red Cell Distribution Width 18.6H, Platelet Count 135L, Neutrophils (%) (Auto) 88.1H, Lymphocytes (%) (Auto) 3.2L, Monocytes (%) (Auto) 6.6H, Eosinophils (%) (Auto) 0.3, Basophils (%) (Auto) 0.3, Neutrophils # (Auto) 10.6H, Lymphocytes # (Auto) 0.4L, Monocytes # (Auto) 0.8, Eosinophils # (Auto) 0.0, Basophils # (Auto) 0.0, Nucleated Red Blood Cells % (auto) 0.0, Prothrombin Time 13.3, Prothromb Time International Ratio 1.04, Anion Gap 12, Glomerular Filtration Rate 7.9L, Blood Urea Nitrogen 49H, Creatinine 5.46H, Sodium Level 139, Potassium Level 4.1, Chloride Level 97L, Carbon Dioxide Level 30, Calcium Level 9.2, Aspartate Amino Transf (AST/SGOT) 18, Alanine Aminotransferase (ALT/SGPT) 26, Alkaline Phosphatase 87, Total Bilirubin 0.5, Total Protein 7.1, Albumin 4.3, Albumin/Globulin Ratio 1.54 CBC/BMP Laboratory Tests 10/22/18 10:55 Red Blood Count 3.82 L, Mean Corpuscular Volume 111.5 H, Mean Corpuscular Hemoglobin 32.7, Mean Corpuscular Hemoglobin Concent 29.3 L, Red Cell Distribution Width 18.6 H, Neutrophils (%) (Auto) 88.1 H, Lymphocytes (%) (Auto) 3.2 L, Monocytes (%) (Auto) 6.6 H, Eosinophils (%) (Auto) 0.3, Basophils (%) (Auto) 0.3, Neutrophils # (Auto) 10.6 H, Lymphocytes # (Auto) 0.4 L, Monocytes # (Auto) 0.8, Eosinophils # (Auto) 0.0, Basophils # (Auto) 0.0, Calcium Level 9.2, Aspartate Amino Transf (AST/SGOT) 18, Alanine Aminotransferase (ALT/SGPT) 26, Alkaline Phosphatase 87, Total Bilirubin 0.5, Total Protein 7.1, Albumin 4.3 Plan / VTE VTE Prophylaxis Ordered?: Yes (exam was done) VTE Exclusion Mechanical Proph: Other VTE Exclusion Pharmacological: Other Plan Plan #Mechanical fall secondary to leg weakness in the setting of chronic spinal stenosis -Patient and family both do not want any aggressive measures such as surgery -However patient and family both want retirement placement as they have realized patient increasingly becoming dependent on others for her daily living -Multiple contusions seen however no fracture -PT consulted and will follow recommendations #History of DVT -We'll continue her eliquis #Chronic hypoxic respiratory failure secondary to pulmonary fibrosis -Patient on chronic steroids -Continue oxygen #End stage renal disease on hemodialysis Tuesday -Nephrology consulted and aware, will see patient tomorrow -Continue renal medications #Anemia off chronic disease -Continue epogen per nephrology -Transfuse if hemoglobin less than 7 #Chronic diastolic heart failure -Stable -continue home medications KEENAN WILEY MD Oct 22, 2018 15:03
[2018-10-22] MEDS: MIDODRINE 5 MG TAB PO SCH (16:00)
[2018-10-22 22:00] VITALS: BP 114/79
[2018-10-22] MEDS: FAMOTIDINE 20 MG TAB PO PRN (22:21)
[2018-10-22] MEDS: MYCOPHENOLATE MOFETIL 250 MG CAP (J7517) PO SCH (22:21)
[2018-10-22] MEDS: APIXABAN 2.5 MG TAB (ELIQUIS) PO SCH (22:21)
[2018-10-23] MEDS: ACETAMINOPHEN TAB 650MG DOSE (2X325MG) PO PRN ×3 (02:12→21:31)
[2018-10-23 06:00] VITALS: BP 119/82
[2018-10-23 06:03] LABS: ALBUMIN 3.5 GM/DL (3.2-5.2); BILIRUBIN,TOTAL 0.7 MG/DL (0.2-1.0); CALCIUM LEVEL 8.6 MG/DL (8.8-10.2); CREATININE FOR GFR 6.37 MG/DL (0.55-1.30); GLOMERULAR FILTRATION RATE 6.6 (>32); POTASSIUM SERUM 5.2 MEQ/L (3.5-5.1); TOTAL PROTEIN 6.5 GM/DL (6.4-8.2)
[2018-10-23] MEDS: VITAMIN D 1,000 INTERNATIONAL UNITS TABLET PO SCH (06:15)
[2018-10-23] MEDS: APIXABAN 2.5 MG TAB (ELIQUIS) PO SCH ×2 (06:16→21:31)
[2018-10-23] MEDS: MIDODRINE 5 MG TAB PO SCH ×3 (06:16→16:00)
[2018-10-23] MEDS: FAMOTIDINE 20 MG TAB PO PRN ×2 (06:16→21:34)
[2018-10-23] MEDS: MYCOPHENOLATE MOFETIL 250 MG CAP (J7517) PO SCH ×2 (06:16→21:30)
[2018-10-23] MEDS: predniSONE 10 MG TAB PO SCH (06:17)
[2018-10-23] MEDS ORDERED: HEPARIN 1,000 UNITS/ML 10ML VIAL (FOR RADIOLOGY& DIALYSIS ONLY) XX ONE (11:30)
[2018-10-23] MEDS ORDERED: HEPARIN 1,000 UNITS/ML 10ML VIAL (FOR RADIOLOGY& DIALYSIS ONLY) IV ONE (11:30)
--- NOTE | 2018-10-23 12:18 | IPNPDOC ---
Text Note Date of Service The patient was seen on 10/23/18. NOTE Subjective: Patient seen and examined appetite. Patient has no complaints. Kaylin cline states that she would like to go to assisted living facility. Objective: GENERAL APPEARANCE: elderly frail female in no acute distress. VITAL SIGNS:reviewed HEENT: Normocephalic and atraumatic. No scleral icterus. PERRLA. Oropharynx is clear. Mouth revealed good dentition LUNGS: Breath sounds are equal and clear bilaterally. No wheezes, rhonchi, or rales. HEART: Regular rate and rhythm with normal S1 and S2. Loud systolic murmur ABDOMEN: Soft, flat, and benign. No mass, tenderness, guarding, or rebound. Bowel sounds are present. EXTREMITIES: No cyanosis, clubbing, or edema. NEUROLOGIC: No focal sensory or motor deficits are noted. Gait is normal. Cranial nerves II through XII are intact. PSYCHIATRIC: The patient is awake, alert, and oriented x3. Recent and remote memory is intact. Appropriate mood and affect. SKIN multiple bruises noted throughout her body especially on the left razo LYMPHATICS: No cervical, axillary, adenopathy is noted. Please note labs and vitals below. Please note current medications below. Assessment plan: 88-year-old female with past medical history of chronic hypotension, congestive heart failure, DVT, end-stage renal disease on hemo dialysis, pulmonary fibrosis presented from her senior housing for fall. #Mechanical fall secondary to leg weakness in the setting of chronic spinal stenosis -Patient and family both do not want any aggressive measures such as surgery -However patient and family both want group home placement as they have realized patient increasingly becoming dependent on others for her daily living -Multiple contusions seen however no fracture -PT consulted and will follow recommendations -Case management aware and actively looking for placement. #History of DVT -We'll continue her eliquis #Chronic hypoxic respiratory failure secondary to pulmonary fibrosis -Patient on chronic steroids -Continue oxygen #End stage renal disease on hemodialysis Tuesday -Nephrology consulted and aware, -Dialysis as per nephrology -Continue renal medications #Anemia off chronic disease -Continue epogen per nephrology -Transfuse if hemoglobin less than 7 #Chronic diastolic heart failure -Stable -continue home medications DVT prophylaxis : eliquis Disposition: Awaiting placement VS,Santanabone, I+O VS, Fishbone, I+O Laboratory Tests 10/23/18 05:02 Calcium Level 8.6 L, Aspartate Amino Transf (AST/SGOT) 14, Alanine Aminotransferase (ALT/SGPT) 23, Alkaline Phosphatase 75, Total Bilirubin 0.7, Total Protein 6.5, Albumin 3.5 Vital Signs Date Time Temp Pulse Resp B/P (MAP) Pulse Ox O2 Delivery O2 Flow Rate FiO2 10/23/18 06:00 98.4 71 18 119/82 (94) 99 10/22/18 15:30 Nasal Cannula 2.0 I&O- Last 24 Hours up to 6 AM 10/23/18 06:00 Intake Total 300 ml Balance 300 ml KEENAN WILEY MD Oct 23, 2018 12:18
[2018-10-23 14:00] VITALS: BP 106/66
--- NOTE | 2018-10-23 19:08 | CR ---
DATE OF CONSULTATION: 10/23/2018 CONSULTATION REPORT FOR: Dr. Jimmy Loja CONSULTING PHYSICIAN: Dr. Peña REASON FOR CONSULTATION: Management of end-stage renal disease and hemodialysis. CHIEF COMPLAINT: Status post fall and ankle pain. HISTORY OF PRESENT ILLNESS: Janay Perez is an 88-year-old female with past medical history of end-stage renal disease on hemodialysis every Tuesday, Tuesday, Tuesday, history of chronic hypotension, and other comorbidities as mentioned below. She presented to the emergency room yesterday after a fall after coming out of her bathroom. She reports that she fell and she hurt her left leg and left ankle. She was having a pain so she presented to the emergency room. She was admitted under the hospitalist service yesterday. Nephrology service was called for further help in the management of this patient with end-stage renal disease. I saw and evaluated the patient today morning at the bedside. She is afebrile and hemodynamically stable. She denies any active complaints apart from pain in the left leg. PAST MEDICAL HISTORY: She has a past medical history of end-stage renal disease on hemodialysis every Tuesday, Tuesday, Tuesday, history of chronic hypotension, congestive heart failure, pulmonary fibrosis, history of deep vein thrombosis (DVT) in the past. PAST SURGICAL HISTORY: Status post right upper arm arteriovenous (AV) fistula. ALLERGIES: The patient is allergic to CEPHALOSPORINS, TETRACYCLINE, CODEINE, FENOFIBRATE, MORPHINE, MOXIFLOXACIN, and BACTRIM. FAMILY HISTORY: No significant family history of end-stage renal disease requiring hemodialysis. SOCIAL HISTORY: The patient lives at home. She denies any smoking, illicit drug abuse, or alcohol abuse. REVIEW OF SYSTEMS: CONSTITUTIONAL: She denies any fevers or chills. EYES: She denies any blurry vision or double vision. EARS, NOSE AND THROAT (ENT): She denies any dysphagia or odynophagia. CARDIOVASCULAR: She denies any chest pain or palpitations. RESPIRATORY: She denies any shortness of breath or cough. GASTROINTESTINAL (GI): She denies any nausea or vomiting. GENITOURINARY: She denies any dysuria or hematuria. MUSCULOSKELETAL: She reports left leg pain. SKIN: She denies any rashes or ulcers. CENTRAL NERVOUS SYSTEM (LABOR TRAINER): She denies any seizures. She does report history of spinal stenosis. PSYCHIATRIC: She denies any depression or anxiety. All other review of systems is negative. PHYSICAL EXAMINATION: GENERAL: The patient is awake, alert, oriented times three, sitting up in the bed, in no apparent distress. VITAL SIGNS: Temperature is 98.2 degrees Fahrenheit, blood pressure 106/66, pulse is 87, respiratory rate of 19, saturating 100% on two liters via nasal cannula. HEAD AND NECK: Extraocular muscles. Pupils equally round and reactive to light. Mucous membranes are moist. Neck is supple. There is no jugular venous distention (JVD). CARDIOVASCULAR: S1, S2, regular rate, 2+ edema of the bilateral ankles. RESPIRATORY: Mildly decreased breath sounds at the bases with mild inspiratory crackles. ABDOMEN: Soft. Positive bowel sounds. Nontender. No organomegaly. MUSCULOSKELETAL: No clubbing or cyanosis. She has 2+ edema of the bilateral ankles. CENTRAL NERVOUS SYSTEM (LABOR TRAINER): No focal deficit. Power is 5/5 in bilateral upper extremities. PSYCHIATRIC: Normal mood and affect. LABORATORY REVIEW: CBC showed a WBC of 12, hemoglobin 12.5, platelets are 135. BMP showed sodium 137, potassium 5.2, chloride 99, bicarbonate 29, BUN 61, creatinine is 6.3. IMAGING STUDIES: An x-ray of the ankle was done which showed extensive osteopenia. No acute fracture was seen. CURRENT INPATIENT MEDICATIONS: The patient medications include: - Tylenol as needed - Eliquis 2.5 mg by mouth twice a day - Pepcid 20 mg by mouth twice a day as needed - midodrine 5 mg by mouth three times a day - CellCept 500 mg by mouth twice a day - prednisone 10 mg by mouth daily - vitamin D 1000 units daily ASSESSMENT: An 88-year-old female with history of deep vein thrombosis (DVT), history of end-stage renal disease on hemodialysis every Tuesday, Tuesday, Tuesday, pulmonary fibrosis, chronic hypotension admitted this time after a fall and left leg pain. PLAN: 1. End-stage renal disease, on hemodialysis. The patient's regular dialysis day is today. She will be dialyzed today. I will try to remove about two liters of fluid as tolerated by her blood pressure. 2. Chronic diastolic congestive heart failure. It is difficult to remove fluid in this patient because of chronic hypotension. She continues to be on midodrine. 3. History of deep vein thrombosis (DVT). Continue current dose of Eliquis for her age and end-stage renal disease. 4. Anemia and end-stage renal disease. Hemoglobin is 12.5 which is optimal. 5. Hyperkalemia. The patient will be dialyzed with a 2K bath. Potassium level is expected to improve after that. Thank you for involving me in the care of this patient. I shall be happy to follow the patient along with you tomorrow morning.
[2018-10-23 22:00] VITALS: BP 121/53
[2018-10-24] MEDS: ACETAMINOPHEN TAB 650MG DOSE (2X325MG) PO PRN ×4 (03:54→21:19)
[2018-10-24 06:00] VITALS: BP 137/66
[2018-10-24] MEDS: MIDODRINE 5 MG TAB PO SCH ×3 (06:25→15:10)
[2018-10-24] MEDS: VITAMIN D 1,000 INTERNATIONAL UNITS TABLET PO SCH (09:01)
[2018-10-24] MEDS: (RENVELA) SEVELAMER **CARBONate** 800 MG TAB PO SCH ×5 (09:01→18:14)
[2018-10-24] MEDS: APIXABAN 2.5 MG TAB (ELIQUIS) PO SCH ×2 (09:01→21:20)
[2018-10-24] MEDS: MYCOPHENOLATE MOFETIL 250 MG CAP (J7517) PO SCH ×2 (09:01→21:20)
[2018-10-24] MEDS: predniSONE 10 MG TAB PO SCH (09:01)
[2018-10-24 14:00] VITALS: BP 147/72
--- NOTE | 2018-10-24 19:16 | IPNPDOC ---
Text Note Date of Service The patient was seen on 10/24/18. NOTE Ms. Perez is doing well. She was observed working with physical therapy transitioning with a walker to a chair. She required only moderate assistance. Patient is status post a fall at home; fortunately, she did not sustain a fracture or dislocation. Physical Exam: HEENT: Neck is supple with no adenopathy or thyromegaly, her oral mucosa is moist. Cardiovascular: Regular rate and rhythm with a normal S1 and S2, no readily appreciable murmur. Respiratory: Patient demonstrates very good air movement. She has occasional coarse breath sounds, no active cough. Abdomen: Soft, nontender, nondistended, bowel tones present. Extremities: No peripheral edema or lesions. Neuro: No focal neuromotor or sensory deficit, patient is fully alert and aware of her condition and discharge plan. Assessment/plan: #1. End-stage renal disease. Patient will continue with her usual hemodialysis schedule on Mondays, Wednesdays and Fridays. #2. Fall. Again, the patient fortunately did not experience dislocation or fracture. She does have some residual pain and difficulty with activity. Consequently plans are for her to be placed at [facility] for physical and occupational therapy. #3. History of DVT. Patient is on chronic anticoagulation with Eliquis. She does not appear to have had a bleeding event associated with her fall. #4. Pulmonary fibrosis. The patient appears to be at her baseline pulmonary function. VS,Fishbone, I+O VS, Fishbone, I+O Vital Signs Date Time Temp Pulse Resp B/P (MAP) Pulse Ox O2 Delivery O2 Flow Rate FiO2 10/24/18 14:00 98.2 79 16 147/72 (97) 100 2.0 10/22/18 15:30 Nasal Cannula I&O- Last 24 Hours up to 6 AM 10/24/18 06:00 Intake Total 900 ml Output Total 1500 ml Balance -600 ml NARCISO MTZ MD Oct 24, 2018 19:16
[2018-10-24] MEDS: FAMOTIDINE 20 MG TAB PO PRN (21:20)
[2018-10-24 22:00] VITALS: BP 130/59
[2018-10-25] MEDS: ACETAMINOPHEN TAB 650MG DOSE (2X325MG) PO PRN ×5 (01:25→20:28)
[2018-10-25 06:00] VITALS: BP 148/76
[2018-10-25 06:20] VITALS: BP 148/76
[2018-10-25] MEDS: VITAMIN D 1,000 INTERNATIONAL UNITS TABLET PO SCH (06:32)
[2018-10-25] MEDS: MYCOPHENOLATE MOFETIL 250 MG CAP (J7517) PO SCH ×2 (06:33→20:28)
[2018-10-25] MEDS: APIXABAN 2.5 MG TAB (ELIQUIS) PO SCH ×2 (06:34→20:28)
[2018-10-25] MEDS: FAMOTIDINE 20 MG TAB PO PRN ×2 (06:34→20:28)
[2018-10-25] MEDS: predniSONE 10 MG TAB PO SCH (06:34)
[2018-10-25] MEDS: MIDODRINE 5 MG TAB PO SCH ×3 (06:50→16:37)
[2018-10-25] MEDS: (RENVELA) SEVELAMER **CARBONate** 800 MG TAB PO SCH ×3 (08:00→17:27)
--- NOTE | 2018-10-25 08:11 | IPN ---
DATE OF VISIT: 10/24/2018 Mrs. Perez is seen this morning on her bedside. She is eating her breakfast lying in the bed. She is feeling better but still has pain in her right leg where she fell and injured her leg. She has chronic back pain and left leg pain also which is unchanged. She denies any fever, chills, nausea or vomiting. She has no dyspnea or chest pain at present. PHYSICAL EXAMINATION: Temperature 97.9 degrees Fahrenheit, heart rate 72 per minute and respiratory rate 18 per minute. Blood pressure 137/66 mmHg and oxygen saturation 99% on 2 liters oxygen. Head is atraumatic. Neck is supple and without JVD or thyroid enlargement. Chest has old bruising on her back. Lungs are clear to auscultation. Abdomen is soft and nontender. Bowel sounds are normal. Extremities have no cyanosis or clubbing. Neurologically she is awake, alert and at her baseline mentation. PROBLEMS: 1. End-stage renal disease. The patient was dialyzed yesterday and her next regular dialysis will be scheduled for October 25. 2. Hyperkalemia. She had mild hyperkalemia which has likely corrected with her dialysis treatment. Electrolytes should be checked again with a renal profile tomorrow. 3. Anemia. Her anemia has not been an issue at present and no intervention is indicated. 4. Generalized weakness and recurrent falls. She is very frail and weak. She is likely to require subacute rehab. 5. Congestive heart failure and hypervolemia. Her volume status has improved significantly and at present we will continue to maintain it with hemodialysis and fluid removal. 6. Hypotension. She does have chronic hypotension and has been on midodrine 5 mg t.i.d., which should be continued.
[2018-10-25] MEDS ORDERED: HEPARIN 1,000 UNITS/ML 10ML VIAL (FOR RADIOLOGY& DIALYSIS ONLY) IV ONE (11:45)
[2018-10-25 12:35] LABS: BASO % 0.3 % (0.0-1.0); EOS % 0.1 % (0.0-3.0); HEMATOCRIT 38.2 % (36.0-47.0); HEMOGLOBIN 11.4 g/dl (12.0-15.5); LYMPH % 1.1 % (24.0-44.0); MEAN CORPUSCULAR HGB CONC 29.8 g/dl (32.0-36.5); MEAN CORPUSCULAR VOLUME 110.7 fl (80.0-96.0); MONO # 0.3 10^3/uL (0.0-0.8); MONO % 3.5 % (0.0-5.0); NEUTROPHILS # 6.7 10^3/uL (1.8-7.7); NEUTROPHILS % 92.9 % (36.0-66.0); PLATELET COUNT, AUTOMATED 158 10^3/uL (150-450); RED BLOOD COUNT 3.45 10^6/uL (4.00-5.40); WHITE BLOOD COUNT 7.2 10^3/uL (4.0-10.0)
[2018-10-25 12:57] LABS: ALBUMIN 3.8 GM/DL (3.2-5.2); CALCIUM LEVEL 9.1 MG/DL (8.8-10.2); CREATININE FOR GFR 5.56 MG/DL (0.55-1.30); GLOMERULAR FILTRATION RATE 7.7 (>32); PHOSPHORUS LEVEL 5.7 MG/DL (2.5-4.9); POTASSIUM SERUM 4.6 MEQ/L (3.5-5.1)
[2018-10-25 13:20] LABS: LYMPH # 0.1 10^3/uL (1.5-4.5)
--- NOTE | 2018-10-25 13:41 | IPNPDOC ---
Text Note Date of Service The patient was seen on 10/25/18. NOTE Ms. Perez is an 88-year-old female with end-stage renal disease that is hemo dialysis requiring. She sustained a fall at home but fortunately no musculoskeletal injury such as fracture or dislocation. She did have residual pain and decreased mobility. She has continued with her hemodialysis schedule in the interim. She is awaiting residential placement. She currently notes constipation. Physical Exam: HEENT: Neck is supple with no adenopathy or thyromegaly, her oral mucosa is moist. Cardiovascular: Regular rate and rhythm with a normal S1 and S2, with 3/6 murmur. Respiratory: Patient demonstrates very good air movement. She has occasional coarse breath sounds, no active cough. Abdomen: Soft, nontender, nondistended, bowel tones present. Extremities: No peripheral edema or lesions. Neuro: No focal neuromotor or sensory deficit Assessment/plan: #1. End-stage renal disease. Patient will continue with her usual hemodialysis schedule on Mondays, Wednesdays and Fridays. #2. Fall. Again, the patient fortunately did not experience dislocation or fracture. She does have some residual pain and difficulty with activity. Consequently plans are for her to be placed at [facility] for physical and occupational therapy. #3. History of DVT. Patient is on chronic anticoagulation with Eliquis. She does not appear to have had a bleeding event associated with her fall. #4. Pulmonary fibrosis. The patient appears to be at her baseline pulmonary function. #5. Constipation Patient states that Dulcolax is the most effective for her. She was going to wait until Tuesday to take it as she prefers not to have a bowel movement on dialysis days. We will give her Dulcolax today after her hemodialysis is completed. VS,Fishbone, I+O VS, Fishbone, I+O Laboratory Tests 10/25/18 13:00 Red Blood Count 3.45 L, Mean Corpuscular Volume 110.7 H, Mean Corpuscular Hemoglobin 33.0, Mean Corpuscular Hemoglobin Concent 29.8 L, Red Cell Distribution Width 17.2 H, Neutrophils (%) (Auto) 92.9 H, Lymphocytes (%) (Auto) 1.1 L, Monocytes (%) (Auto) 3.5, Eosinophils (%) (Auto) 0.1, Basophils (%) (Auto) 0.3, Neutrophils # (Auto) 6.7, Lymphocytes # (Auto) 0.1 L, Monocytes # (Auto) 0.3, Eosinophils # (Auto) 0.0, Basophils # (Auto) 0.0, Anion Gap 12 Vital Signs Date Time Temp Pulse Resp B/P (MAP) Pulse Ox O2 Delivery O2 Flow Rate FiO2 10/25/18 09:00 2.0 10/25/18 06:20 148/76 (100) 10/25/18 06:00 97.0 73 20 100 10/22/18 15:30 Nasal Cannula I&O- Last 24 Hours up to 6 AM 10/25/18 06:00 Intake Total 1050 ml Output Total 200 ml Balance 850 ml NARCISO MTZ MD Oct 25, 2018 13:41
[2018-10-25] MEDS ORDERED: BISACODYL 5 MG TAB PO ONE (15:00)
[2018-10-25 22:00] VITALS: BP 116/57
[2018-10-26] MEDS: ACETAMINOPHEN TAB 650MG DOSE (2X325MG) PO PRN ×2 (00:43→06:55)
[2018-10-26 06:00] VITALS: BP 136/70
[2018-10-26 06:10] VITALS: BP 132/70
[2018-10-26] MEDS: MIDODRINE 5 MG TAB PO SCH ×2 (06:10→11:55)
[2018-10-26] MEDS: VITAMIN D 1,000 INTERNATIONAL UNITS TABLET PO SCH (07:25)
[2018-10-26] MEDS: MYCOPHENOLATE MOFETIL 250 MG CAP (J7517) PO SCH (07:25)
[2018-10-26] MEDS: (RENVELA) SEVELAMER **CARBONate** 800 MG TAB PO SCH ×2 (07:25→12:30)
[2018-10-26] MEDS: predniSONE 10 MG TAB PO SCH (07:26)
[2018-10-26] MEDS: APIXABAN 2.5 MG TAB (ELIQUIS) PO SCH (07:26)
--- NOTE | 2018-10-26 10:48 | IPN ---
DATE OF SERVICE: 10/25/2018 SUBJECTIVE: The patient was seen and examined at the bedside today morning. She was getting physical therapy when I saw her. She is afebrile and hemodynamically stable. The patient is a due for hemodialysis today. OBJECTIVE: Vital Signs: Temperature is 97 degrees Fahrenheit, blood pressure 148/76, pulse 73, respiratory rate of 20, saturating 100% on 2 liters via nasal cannula. Intake and Output: Urine output recorded as 200 mL, weight on the bed scale was refused by the patient. PHYSICAL EXAMINATION: General: The patient is awake, alert, oriented times three, sitting up on the sofa in no apparent distress. Head and Neck Exam: Extraocular muscles intact. Pupils equally round and reactive to light. Mucous membranes are moist. Neck is supple. There is no jugular venous distention (JVD). Cardiovascular: S1 and S2, regular rate. 2+ edema of the bilateral ankles. Respiratory: Chest is clear to auscultation bilaterally. Bilateral equal air entry both lungs. Abdomen: Soft. Positive bowel sounds. Nontender. No organomegaly. Musculoskeletal: No clubbing or cyanosis. Pulses are 2+ and 2+ edema of the bilateral ankles. SUPERVISOR INVENTORY MERCHANDISING: No focal deficit. Power is 5/5 in all extremities. LAB REVIEW: CBC showed a WBC of 7.2, hemoglobin 11.4, platelets of 158. BMP showed sodium of 137, potassium 4.6, chloride 99, bicarb 26, BUN 54, creatinine is 5.5. CURRENT INPATIENT MEDICATIONS: The patient's medications were all reviewed by me. There is no change in the medications today as compared with yesterday. ASSESSMENT/PLAN: 1. End-stage renal disease on hemodialysis. Today is patient's regular day of dialysis. She be dialyzed in the afternoon. Ultrafiltration goal will be 1.5 liters. 2. Chronic diastolic congestive heart failure. Volume status is optimized with dialysis. Ultrafiltration goal is 1.5 liters. 3. Chronic hypotension. Continue current dose of midodrine. 4. History of DVT. Continue current dose of Eliquis.
--- NOTE | 2018-10-26 12:29 | DS.PDOC ---
Discharge Summary General Date of Admission Oct 23, 2018 at 14:51 Date of Discharge October 26, 2018 Primary Care Physician: Farshad Dick MD Specialist/Consultants Involve: JOSE ENRIQUE SHARMA MD Discharge Summary PROCEDURES PERFORMED DURING STAY: Hemodialysis per her usual schedule. ADMITTING DIAGNOSES: 1. Fall injury with contusion. DISCHARGE DIAGNOSES: 1. Fall injury with contusion, chronic kidney disease stage V that is hemodialysis requiring, chronic hypotension, chronic diastolic congestive heart failure, history of DVT, chronic hypoxic respiratory failure due to pulmonary fibrosis, anemia of chronic disease, spinal stenosis, degenerative joint disease. COMPLICATIONS/CHIEF COMPLAINT: FALL. HISTORY OF PRESENT ILLNESS/HOSPITAL COURSE: This is an 88-year-old female with a history of spinal stenosis. She is not a surgical candidate. She has unsteady gait. She sustained a fall at home. Upon evaluation in the emergency room she was found to have multiple contusions and considerable pain. Radiologic evaluation showed significant degenerative joint disease. She fortunately did not sustain any fracture or dislocation. The patient was seen by physical therapy services. She did have considerable pain with mobilizing; her activity tolerance and ability was substantially less than her usual baseline. Recommendations were that she go to alf for ongoing physical and occupational therapy. In the interim. Patient did continue with her usual hemodialysis schedule. She did not otherwise have difficulty with any of her underlying conditions; she was maintained on her usual medication regimen. The patient did have some difficulty with constipation. Of additional concern is that the patient does not like to have bowel movements on dialysis days as she is concerned about incontinence during dialysis. Dulcolax is effective for her and was given as needed after hemodialysis. The patient also has chronic hypotension for which she is treated with midodrine. Please note that this medication was held for systolic pressures greater than 115. DISCHARGE MEDICATIONS: Please see below. ALLERGIES: Please see below. PHYSICAL EXAMINATION ON DISCHARGE: VITAL SIGNS: Please see below. GENERAL: Appears greater than her stated age of 88 HEENT: Neck is supple with no adenopathy or thyromegaly, her oral mucosa is moist. Cardiovascular: Regular rate and rhythm with a normal S1 and S2, with 3/6 murmur. Respiratory: Patient demonstrates very good air movement. She has occasional coarse breath sounds, no active cough. Abdomen: Soft, nontender, nondistended, bowel tones present. Extremities: No peripheral edema or lesions. Neuro: No focal neuromotor or sensory deficit, mobility is limited by pain LABORATORY DATA: Please see below. IMAGING: PROGNOSIS: ACTIVITY: As tolerated, with walker. DIET: Heart healthy DISCHARGE PLAN: The patient is to be discharged to [facility] for ongoing physical and occupational therapy. She may require eventual long-term care. She will continue with her hemodialysis schedule. She will follow-up with her primary care provider, Dr. Farshad Dick. DISPOSITION: . DISCHARGE INSTRUCTIONS: 1. . ITEMS TO FOLLOWUP ON ON OUTPATIENT: 1. . DISCHARGE CONDITION: Stable. TIME SPENT ON DISCHARGE: Greater than 40 minutes. Vital Signs/I&Os Vital Signs Date Time Temp Pulse Resp B/P (MAP) Pulse Ox O2 Delivery O2 Flow Rate FiO2 10/26/18 06:10 132/70 (90) 10/26/18 06:00 97.3 79 18 99 2.0 10/22/18 15:30 Nasal Cannula I&O- Last 24 Hours up to 6 AM 10/26/18 06:00 Intake Total 800 ml Output Total 1500 ml Balance -700 ml Laboratory Data Labs 24H Laboratory Tests 2 10/25/18 13:00: Immature Granulocyte % (Auto) 2.1, White Blood Count 7.2, Red Blood Count 3.45L, Hemoglobin 11.4L, Hematocrit 38.2, Mean Corpuscular Volume 110.7H, Mean Corpuscular Hemoglobin 33.0, Mean Corpuscular Hemoglobin Concent 29.8L, Red Cell Distribution Width 17.2H, Platelet Count 158, Neutrophils (%) (Auto) 92.9H, Lymphocytes (%) (Auto) 1.1L, Monocytes (%) (Auto) 3.5, Eosinophils (%) (Auto) 0.1, Basophils (%) (Auto) 0.3, Neutrophils # (Auto) 6.7, Lymphocytes # (Auto) 0.1L, Monocytes # (Auto) 0.3, Eosinophils # (Auto) 0.0, Basophils # (Auto) 0.0, Nucleated Red Blood Cells % (auto) 0.0, Blood Urea Nitrogen 54H, Creatinine 5.56H, Sodium Level 137, Potassium Level 4.6, Chloride Level 99, Carbon Dioxide Level 26, Anion Gap 12, Glomerular Filtration Rate 7.7L, Calcium Level 9.1, Phosphorus Level 5.7H, Albumin 3.8 CBC/BMP Laboratory Tests 10/25/18 13:00 Red Blood Count 3.45 L, Mean Corpuscular Volume 110.7 H, Mean Corpuscular Hem oglobin 33.0, Mean Corpuscular Hemoglobin Concent 29.8 L, Red Cell Distribution Width 17.2 H, Neutrophils (%) (Auto) 92.9 H, Lymphocytes (%) (Auto) 1.1 L, Monocytes (%) (Auto) 3.5, Eosinophils (%) (Auto) 0.1, Basophils (%) (Auto) 0.3, Neutrophils # (Auto) 6.7, Lymphocytes # (Auto) 0.1 L, Monocytes # (Auto) 0.3, Eosinophils # (Auto) 0.0, Basophils # (Auto) 0.0, Anion Gap 12 Discharge Medications Scheduled Apixaban (Eliquis) 2.5 Mg Tablet, 2.5 MG PO BID, (Reported) Cholecalciferol (Vitamin D3) (Vitamin D3) 1,000 Unit Tab, 1,000 UNITS PO DAILY, (Reported) Megestrol Acetate (Megestrol Acetate) 20 Mg Tab, 20 MG PO DAILY, (Reported) Midodrine HCl (Midodrine HCl) 5 Mg Tablet, 5 MG PO TID, (Reported) Mycophenolate Mofetil (Mycophenolate Mofetil) 250 Mg Cap, 500 MG PO BID, (Reported) Prednisone (Prednisone) 10 Mg Tab, 10 MG PO DAILY, (Reported) Sevelamer Carbonate (Renvela) 800 Mg Tablet, 800 MG PO TID, (Reported) Scheduled PRN Acetaminophen (Acetaminophen) 325 Mg Tablet, 650 MG PO Q4H PRN for PAIN, (Re ported) Docusate Sodium (Stool Softener) 100 Mg Capsule, 100 MG PO BID PRN for CONSTIPATION, (Reported) Ondansetron (Ondansetron Odt) 4 Mg Tab, 4 MG PO Q8H PRN for NAUSEA, (Reported) Ranitidine HCl (Ranitidine HCl) 150 Mg Tablet, 1 TAB PO BID PRN for INDIGESTION, (Reported) Allergies Coded Allergies: Tetracyclines (Verified Allergy, Unknown, 09/29/18) codeine (Verified Allergy, Unknown, 09/29/18) fenofibrate (Verified Allergy, Unknown, 09/29/18) moxifloxacin (Verified Allergy, Unknown, 09/29/18) Cephalosporins (Verified Adverse Reaction, Mild, NAUSEA, 09/29/18) cefuroxime (Verified Adverse Reaction, Mild, NAUSEA, 09/29/18) morphine (Verified Adverse Reaction, Mild, CONFUSION , 09/29/18) sulfamethoxazole (Verified Adverse Reaction, Mild, NAUSEA, 09/29/18) trimethoprim (Verified Adverse Reaction, Mild, NAUSEA, 09/29/18) NARCISO MTZ MD Oct 26, 2018 12:29
--- NOTE | 2018-10-28 09:59 | IPN ---
DATE OF SERVICE: 10/26/2018 SUBJECTIVE: Patient was seen and examined at the bedside today morning. She is afebrile, hemodynamically stable. She was sitting on the sofa. She was dialyzed yesterday. She tolerated the hemodialysis procedure well. The patient reports that she is still getting physical therapy and she is pending placement at a long-term. She still feels weak and she cannot walk without assistance. OBJECTIVE: VITAL SIGNS: Temperature is 97.3 degrees fundi blood pressure 132/70, pulse is 79, respiratory of 18, saturating 95% 2 liters by nasal cannula. INTAKE AND OUTPUT: There is no urine output recorded. Ultrafiltration with hemodialysis was 1.5 liters yesterday. Weight on the bed scale is 50.6 kg. PHYSICAL EXAMINATION: GENERAL: Patient is awake, alert, oriented times three, sitting up on the sofa in no apparent distress. HEAD AND NECK EXAM: Extraocular muscles intact. Pupils equally round and reactive to light. Mucous membranes are moist. Neck is supple. There is no JVD. CARDIOVASCULAR: S1, S2 regular rate. 1+ edema of the bilateral ankles. RESPIRATORY: Chest is clear to auscultation bilaterally. Bilateral equal air entry. No rales or rhonchi. ABDOMEN: Soft. Positive bowel sounds. Nontender. No organomegaly. MUSCULOSKELETAL: No clubbing or cyanosis. Pulses are 2+. SMELTER CHARGER: No focal deficit. Power is 5/5 in bilateral upper extremities. LAB REVIEW: CBC is from yesterday. BMP is also from yesterday. CURRENT INPATIENT MEDICATIONS: The patient's medications were all reviewed by me. There is no change in the medications today as compared with yesterday. ASSESSMENT/PLAN: 1. End-stage renal disease on hemodialysis. The patient was dialyzed yesterday. Volume status is optimal. Next hemodialysis will be tomorrow as outpatient. 2. Chronic diastolic congestive heart failure. The patient does not tolerate much ultrafiltration. 1.5 liters of fluid was removed yesterday. The patient has chronic leg edema because of sitting for long times. 3. Chronic hypotension. Continue current dose of midodrine. DISPOSITION: It is okay to discharge the patient to long-term. She will be dialyzed as outpatient once she is transferred to the long-term facility.
== END 2018-10-26 13:44 | DRG 551 ==
LOC: M ED 08:17 → EDBD 08:17 → M ED INP 08:18 → M MSPAV 15:51 → OBSVTOIN 10-23 14:51
PROVIDERS: ADMIT Hospitalist; ATTEND Internal Medicine
PROC: 5A1D70Z Performance of Urinary Filtration, Intermittent, Less than 6 Hours Per Day (ICD-10-PCS; principal; 2018-10-23)
DX: M48.04 Spinal stenosis, thoracic region (principal); N18.6 End stage renal disease; J96.11 Chronic respiratory failure with hypoxia; I50.32 Chronic diastolic (congestive) heart failure; S20.20XA Contusion of thorax, unspecified, initial encounter; S90.01XA Contusion of right ankle, initial encounter; I95.9 Hypotension, unspecified; J84.10 Pulmonary fibrosis, unspecified; Z79.899 Other long term (current) drug therapy; Z88.5 Allergy status to narcotic agent; Z88.2 Allergy status to sulfonamides; Z88.8 Allergy status to other drugs, medicaments and biological substances; Z86.718 Personal history of other venous thrombosis and embolism; D63.1 Anemia in chronic kidney disease; E87.5 Hyperkalemia; K59.00 Constipation, unspecified; R29.6 Repeated falls; M51.34 Other intervertebral disc degeneration, thoracic region; W18.30XA Fall on same level, unspecified, initial encounter; Y92.009 Unspecified place in unspecified non-institutional (private) residence as the place of occurrence of the external cause

== ENCOUNTER → 2019-02-12 | Outpatient (REF) | payer MEDICARE, MEDICAID, OTHER ==
[~2019-02-12] MED LIST changes: +DOCU-129 PO; +RANI-356 PO; -RANI1TAB6 PO
--- NOTE | 2019-02-12 14:42 | REP ---
Clinical: Pain and swelling. Technique: AP, lateral, bilateral oblique views of the left ankle. Findings: Osteopenia and age-related degenerative changes are appreciated along with extensive peripheral vascular disease. Overlying soft tissue swelling suggested. No acute fracture dislocation. Impression: Osteopenia, degenerative changes, swelling, peripheral vascular disease. Electronically Signed by Evaristo Flores MD 02/12/2019 02:33 P
== END ==
LOC: SKLAB5 12:35
PROVIDERS: ATTEND Family Medicine
DX: M25.572 Pain in left ankle and joints of left foot (principal)